=== PATIENT | male | born 1970 | race Caucasian/White ===

== ENCOUNTER 2018-09-24 08:17 | Emergency (ER) | payer MEDICAID, SELFPAY ==
[2018-09-24] VITALS (26 sets, daily range): BP systolic 126–142; BP diastolic 64–90; PULSE 115–141; RESP 14–38; TEMP 36.6; O2SAT 94–100
--- NOTE | 2018-09-24 08:31 | ED.GENADUL_ITS ---
Discharge Plan Disposition Patient Disposition: HOME Condition: Improving Discharge Details Chief Complaint: SOB Clinical Impression: COPD (chronic obstructive pulmonary disease), Tachycardia Primary Care Provider: None,None ED Provider: Gallo Shafer Home Meds and New Rx's Prescriptions: New albuterol sulfate 90 mcg/actuation aerosol powdr breath activated 2 inh IH Q4H PRN (Reason: shortness of breath or wheezing) Qty: 1 RF: 0 prednisolone sodium phosphate 30 mg tablet,disintegrating 30 mg PO DAILY Qty: 4 RF: 0 Discharge Instructions Instructions: COPD (Chronic Obstructive Pulmonary Disease) (ED) Additional Instructions: Feel free to return to the emergency department for any further needs otherwise take medication as prescribed and follow-up with primary care provider within the next 1-2 weeks. Stay well-hydrated continue to abstain from smoking for alcohol use. Referrals: Kalyn Thomas [NURSE PRACTITIONER] - 1 week (for reassessment) Medical Decision Making <Gallo Shafer NP - Last Filed: 09/24/18 22:09> Patient presenting to the emergency department for chief complaint of shortness of breath for years. Patient states that he recently quit smoking approximately 3 weeks ago. Patient patient is new to the area and just assigned a primary care provider but has not seen them yet. Patient states that he is just tired of feeling this way but that there is no acute changes. Patient does state intermittent chest pains with this but denies any current discomfort. Physical exam shows regular S1-S2 with tachycardia, diffuse rhonchi/wheezes throughout all lung mata, tachypneic but otherwise unremarkable exam. Patient does state alcohol use but is vague with details about quantity which makes me suspect potential alcohol abuse and/or withdrawal causing the tachycardia. Plan to rule out ACS with EKG and troponin but doubt this at this time given chronicity, concern for possible PE with tachycardia and report of shortness of breath but no hypoxia is noted so plan on doing d-dimer, also concern for electrolyte a bnormality or alcohol withdrawal also plan on checking EtOH level and electrolytes along with CBC. Pending results patient given DuoNeb and liter of fluids. Given chronicity of report and heavy smoking history chief concern is for COPD undiagnosed. Chest x-ray reviewed along with radiologist interpretation and shows no acute findings. Patient reassessed after DuoNeb and pending lab results and states improvement of shortness of breath and with reassessment of lung mata rhonchi have now significantly diminished and now diffuse wheezing heard throughout. Plan to give second DuoNeb to see if this improves lung function any more. Review of labs show within normal limits d-dimer, negative troponin, slightly elevated BNP, slight elevation of AST, alcohol level of 33. Otherwise nondiag nostic labs no severe electrolyte abnormalities. Suspect COPD so patient given referral for pulmonary function test. Also did discuss with patient alcohol abuse as this may be causing his tachycardia. Patient does state improvement after receiving DuoNeb. Patient given single dose of Solu-Medrol. patient given albuterol inhaler to use for home use for shortness of breath, placed on 5-day burst of steroids and placed up on care management list for a follow-up appointment preferably in the next 1-2 weeks for reassessment. Patient did have persistent tachycardia so patient given second liter of fluids. Patient states that he quit heavy drinking approximately 6-8 months ago and only drinks occasionally. I did inform patient that this may also be contributing to some of his symptoms. Tachycardia did reduce to 1 teens at rest and patient continued to state improvement of symptoms. I feel that patient is able to be safely discharged with clear instructions to return to emergency department for any further concerns otherwise to follow-up with primary care provider. After discussion of diagnosis and plan of care patient has no further needs, questions, or concerns and states clear understanding to return to the emergency department for any worsening symptoms. <Zak Gonzalez DO - Last Filed: 09/24/18 21:04> ECG Data Attestation: I personally reviewed and interpreted this ECG (s) as follows: Interpretation: EKG 8: 29 Rate 132, more QTc 498 QRS 98, sinus tachycardia, no significant ST elevation, no significant ST depression, no T wave inversions, no Q waves. HPI <Gallo Shafer NP - Last Filed: 09/24/18 22:09> General Mode of arrival: ambulatory . Date/Time Provider Initiated Documentation: 09/24/18 08:19 . Limitations to Documentation: no limitations . Information obtained by: patient and RN notes reviewed . History of Present Illness 48 year old M presents to the emergency department with the chief complaint of shortness of breath, Quality is described as other (denies pain), and is localized to the chest. Patient started experiencing this year(s) and it has been constant. No relieving factors improve symptom(s), Other factors that worsen symptoms (activity) . Patient did receive the following treatments prior to arrival, none Related Data Home Medications Medication Instructions Recorded Confirmed albuterol sulfate 2 inh IH Q4H PRN #1 each 09/24/18 prednisolone sodium phosphate 30 mg PO DAILY #4 tab 09/24/18 Previous Rx's Medication Instructions Recorded albuterol sulfate 2 inh IH Q4H PRN #1 each 09/24/18 prednisolone sodium phosphate 30 mg PO DAILY #4 tab 09/24/18 Allergies Allergy/AdvReac Type Severity Reaction Status Date / Time No Known Allergies Allergy Unverified 09/24/18 08:34 General Stated Complaint: SOB WANDA: 2 Review of Systems <Gallo Shafer NP - Last Filed: 09/24/18 22:09> Constitutional Denies chills, Denies fever(s) and Denies malaise Cardiovascular Reports as per HPI, Reports chest pain (intermittent - none now), Denies chest pain with activity, Reports diaphoresis, Denies syncope, Denies irregular heart rhythm, Denies palpitations, Reports dyspnea and Reports dyspnea on exertion Respiratory Denies cough, Denies hemoptysis, Reports dyspnea and Reports dyspnea on exertion Gastrointestinal Denies abdominal pain, Denies nausea and Denies vomiting Neurologic Denies syncope Psychiatric Denies anxiety Endocrine Denies palpitations PFSH <Gallo Shafer NP - Last Filed: 09/24/18 22:09> Social History Smoking and Tabacco status: Former Tobacco Use Exam <Gallo Shafer NP - Last Filed: 09/24/18 22:09> Const General: cooperative, no acute distress, diaphoretic and not ill appearing Nutritional Appearance: average body habitus Orientation: alert, awake and oriented x3 Limitations: mental status not altered Neck Neck: normal visual inspection, full ROM, trachea midline, supple and no anterior neck swelling Thyroid: thyroid normal Carotids: normal carotid upstroke and no bruits Chest Chest: normal inspection of the chest Resp Effort & Inspection: able to speak in complete sentences and tachypneic Auscultation: rhonchi and wheezes Cardio Jugular venous pressure: no JVD Palpation: normal PMI Rate: regular rate Rhythm: regular rhythm Heart Sounds: S1 normal, S2 normal, no click, no gallops, no murmurs and no rubs Bruits: no abdominal aortic bruits and no carotid bruits Pulses: radial pulses present bilaterally 2+ GI Inspection: normal to inspection Palpation: soft, no aortic enlargement, no pulsatile masses and nontender Auscultation: normal bowel sounds Skin General skin exam: no rashes or lesions noted Neuro General: alert, awake, oriented x3, tone normal and moves all extremities Course <Gallo Shafer NP - Last Filed: 09/24/18 22:09> Vital Signs Temperature 36.6 C 09/24/18 08:23 Pulse 141 H 09/24/18 08:23 Respiratory Rate 24 09/24/18 08:23 Blood Pressure 127/90 09/24/18 08:23 Pulse Oximetry 96 09/24/18 08:23 Temperature 36.6 C 09/24/18 08:23 Temperature Source Temporal Artery Scan 09/24/18 08:23 Pulse 141 H 09/24/18 08:23 Respiratory Rate 24 09/24/18 08:23 Blood Pressure 127/90 09/24/18 08:23 Pulse Oximetry 96 09/24/18 08:23 Oxygen Delivery Method Room Air 09/24/18 08:23 Oxygen Flow Rate 0 09/24/18 08:23 Pain Level 0 09/24/18 08:23
--- NOTE | 2018-09-24 08:37 | DI.RAD_ITS ---
SYMPTOM/DIAGNOSIS: SOB PA AND LATERAL CHEST: The heart is normal in size. The lungs are clear. The mediastinal structures and pleura appear intact. CONCLUSION: Normal chest.
[2018-09-24 08:49] LABS: Abs Immature Grans 0.05 k/cumm (0.0-0.09); Absolute Basophil Count 0.06 k/cumm (0.0-0.2); Absolute Eosinophil Count 0.12 k/cumm (0.0-0.7); Absolute Lymphocyte Count 2.62 k/cumm (1.2-3.4); Absolute Neutrophil Count 5.77 k/cumm (1.2-6.7); Basophils % 0.6; Eosinophils % 1.2; HCT 43.1 % (40.0-50.0); Immature Grans % 0.5; Lymphocytes % 27.2; Mean Corp. HGB Concentration 34.8 g/dL (32.0-36.0); Mean Corpuscular Hemoglobin 32.7 pg (27.0-33.0); Mean Corpuscular Volume 93.9 fL (80-95); Mean Platelet Volume 10.1 fL (8.0-11.0); Monocytes % 10.4; Neutrophils % 60.1; Platelet Count 317 x1000/uL (130-400); RBC 4.59 m/cumm (4.50-6.00); RBC Distribution Width 12.7 % (11.8-14.1); White Blood Cell Count 9.62 k/cumm (4.4-10.8)
[2018-09-24] MEDS: Normal Saline 1,000 ML 1000 ML IV ×2 (08:57→10:12)
[2018-09-24] MEDS: Albuterol/Ipratropium 3 ML UPD VIAL UPD ×2 (08:57→09:23)
[2018-09-24] MEDS: Normal Saline Flush 10 ML SYR IVP ×2 (09:11→09:44)
[2018-09-24 09:12] LABS: ETHANOL BLOOD 33.3 mg/dL (<3); Magnesium 2.2 mg/dL (1.8-2.4); NT-proBNP 348 pg/mL
[2018-09-24 09:18] LABS: ALT 44 U/L (12-78); AST 38 U/L (15-37); Albumin 3.2 g/dL (3.4-5.0); Alkaline Phosphatase 48 U/L (46-116); Anion Gap 9.3 mmol/L (3-11); BUN 11 mg/dL (7-18); Bilirubin, Total 0.3 mg/dL (0.2-1.0); CO2 25.7 mmol/L (21.0-32.0); CREATININE 0.83 mg/dL (0.70-1.30); Calcium 8.4 mg/dL (8.5-10.1); Chloride 102 mmol/L (98-107); Glucose 138 mg/dL (70-100); Potassium 3.5 mmol/L (3.5-5.1); Sodium 137 mmol/L (136-145); Total Protein 7.5 g/dL (6.4-8.2)
[2018-09-24 09:19] LABS: Troponin I < 0.02 ng/mL (0.00-0.06)
[2018-09-24 09:23] LABS: D-Dimer 200 ng/mlFEU (<500); Prothrombin Time 9.8 sec (9.3-11.0)
[2018-09-24] MEDS: methylPREDNISolone SUCC 125 MG VIAL IVP (09:42)
--- NOTE | 2018-09-24 10:50 | PDOC.ERCMPRO ---
Care Management Progress Note 09/24-Iftikhar HERBERT requested assistance with a PCP (William) f/u in 1-2 weeks for COPD Management. Iftikhar has already sent the referral for PFT's. Referral faxed to [facility] this am.
--- NOTE | 2018-09-24 10:53 | CMPROGNOTE_ITS ---
Care Management Progress Note 09/24-Iftikhar HERBERT requested assistance with a PCP (William) f/u in 1-2 weeks for COPD Management. Iftikhar has already sent the referral for PFT's. Referral faxed to [facility] this am.
== END 2018-09-24 11:02 | disposition home or self-care (01) ==
PROVIDERS: Emergency Provider Nurse Practitioner Family
DX: J44.1 Chronic obstructive pulmonary disease with (acute) exacerbation (principal); R00.0 Tachycardia, unspecified; Z87.891 Personal history of nicotine dependence
CPT/HCPCS: 36415; 80053; 93005; 94640; 96361; 96374; 99285; 71046; 80320; 83735; 83880; 84484; 85025; 85379; 85610; 85730; 93010; J2930; J7620

== ENCOUNTER 2018-10-12 01:15 | Outpatient (CLI) | payer MEDICAID, SELFPAY ==
[2018-10-12] MEDS: Inhaler, Assist Device 1 EACH MC (10:39)
[2018-10-12] MEDS: Albuterol HFA 18 GM 200 PUFF INH IH (10:39)
--- NOTE | 2018-10-13 10:00 | PFT_ITS ---
DATE OF SERVICE: 10/12/18 REQUESTING PROVIDER: Dr. Lionel Ruggiero Spirometry shows severe obstructive airways disease with significant bronchodilator response. Lung volumes show no evidence of restriction. There is moderate hyperinflation and air trapping. Diffusion capacity mildly reduced, which is normal when corrected to alveolar volume. Airways resistance normal. IMPRESSION: Severe obstructive airways disease with significant bronchodilator response. This is associated with moderate hyperinflation and air trapping and mild diffusion defect. Clinical correlation recommended.
== END 2018-10-12 01:35 ==
PROVIDERS: PCP Family Medicine; Visit Provider Nurse Practitioner Family
DX: R06.00 Dyspnea, unspecified (principal)
CPT/HCPCS: 94060; 94150; 94726; 94729

== ENCOUNTER 2018-12-24 14:22 | Outpatient (RCR) | payer MEDICAID, SELFPAY | END 2019-01-14 23:59 | disposition home or self-care (01) | LOC: PRC 14:22 | PROVIDERS: PCP Family Medicine; Visit Provider Family Medicine | DX: J44.9 Chronic obstructive pulmonary disease, unspecified (principal); Z51.89 Encounter for other specified aftercare | CPT/HCPCS: G0424 ==

== ENCOUNTER 2019-01-16 05:03 | Outpatient (RCR) | payer MEDICAID, SELFPAY | END 2019-02-13 23:59 | disposition home or self-care (01) | LOC: PRC 05:03 | PROVIDERS: PCP Family Medicine; Visit Provider Family Medicine | DX: J44.9 Chronic obstructive pulmonary disease, unspecified (principal); Z51.89 Encounter for other specified aftercare | CPT/HCPCS: G0424 ==

== ENCOUNTER 2019-02-10 11:56 | Outpatient (REF) | payer MEDICAID, SELFPAY ==
[2019-02-10 13:22] LABS: Abs Immature Grans 0.02 k/cumm (0.0-0.09); Absolute Basophil Count 0.08 k/cumm (0.0-0.2); Absolute Eosinophil Count 0.21 k/cumm (0.0-0.7); Absolute Lymphocyte Count 2.09 k/cumm (1.2-3.4); Absolute Monocyte Count 1.04 k/cumm (0.11-0.7); Absolute Neutrophil Count 4.84 k/cumm (1.2-6.7); Eosinophils % 2.5; HCT 43.8 % (40.0-50.0); HGB 14.9 g/dL (13.5-17.5); Immature Grans % 0.2; Lymphocytes % 25.2; Mean Corpuscular Hemoglobin 32.8 pg (27.0-33.0); Mean Corpuscular Volume 96.5 fL (80-95); Mean Platelet Volume 10.9 fL (8.0-11.0); Monocytes % 12.6; Neutrophils % 58.5; Platelet Count 283 x1000/uL (130-400); RBC 4.54 m/cumm (4.50-6.00); RBC Distribution Width 14.5 % (11.8-14.1); White Blood Cell Count 8.28 k/cumm (4.4-10.8)
[2019-02-10 14:08] LABS: ALT 44 U/L (12-78); AST 45 U/L (15-37); Albumin 3.6 g/dL (3.4-5.0); Alkaline Phosphatase 43 U/L (46-116); Anion Gap 13.8 mmol/L (3-11); BUN 9 mg/dL (7-18); Bilirubin, Total 0.3 mg/dL (0.2-1.0); CO2 25.2 mmol/L (21.0-32.0); CREATININE 0.63 mg/dL (0.70-1.30); Calcium 8.7 mg/dL (8.5-10.1); Chloride 102 mmol/L (98-107); Glucose 100 mg/dL (70-100); Potassium 4.1 mmol/L (3.5-5.1); Sodium 141 mmol/L (136-145); Total Protein 7.1 g/dL (6.4-8.2)
== END 2019-02-10 12:16 ==
LOC: NCHCN 11:56
PROVIDERS: PCP Family Medicine; Visit Provider Nurse Practitioner Family
DX: R06.00 Dyspnea, unspecified (principal); R53.83 Other fatigue; R14.0 Abdominal distension (gaseous); R10.811 Right upper quadrant abdominal tenderness
CPT/HCPCS: 80053; 85025

== ENCOUNTER 2019-02-14 09:51 | Outpatient (RCR) | payer MEDICAID, SELFPAY | END 2019-03-16 23:59 | disposition home or self-care (01) | LOC: PRC 09:51 | PROVIDERS: PCP Nurse Practitioner Family; Visit Provider Family Medicine | DX: J44.9 Chronic obstructive pulmonary disease, unspecified (principal); Z51.89 Encounter for other specified aftercare | CPT/HCPCS: G0424 ==

== ENCOUNTER 2019-02-25 01:08 | Outpatient (CLI) | payer MEDICAID, SELFPAY ==
--- NOTE | 2019-02-25 07:32 | DI.US_ITS ---
SYMPTOM/DIAGNOSIS: RUQ ABD TENDERNESS, R10.811, ABD BLOATING, R14.0 ABDOMEN ULTRASOUND: Routine examination was performed. The aorta is of normal caliber. The inferior vena cava is unremarkable. The liver measures 18.5 cm. in length. There is diffuse increased echogenicity of the liver consistent with fatty infiltration. No hepatic mass is seen. The gallbladder is negative. No biliary ductal dilatation is seen. The pancreatic evaluation is limited due to overlying bowel. The spleen and kidneys are unremarkable. IMPRESSION: Hepatomegaly and hepatic steatosis.
== END 2019-02-25 01:28 ==
PROVIDERS: PCP Family Medicine; Visit Provider Nurse Practitioner Family
DX: R10.811 Right upper quadrant abdominal tenderness (principal); R14.0 Abdominal distension (gaseous); R16.0 Hepatomegaly, not elsewhere classified; K76.0 Fatty (change of) liver, not elsewhere classified; J44.9 Chronic obstructive pulmonary disease, unspecified
CPT/HCPCS: 76700; G0424

== ENCOUNTER 2019-05-02 15:20 | Emergency (ER) | payer MEDICAID, SELFPAY ==
[2019-05-02] VITALS (27 sets, daily range): BP systolic 107–129; BP diastolic 68–96; PULSE 84–120; RESP 12–29; TEMP 36.9–37; O2SAT 83–100
--- NOTE | 2019-05-02 15:35 | DI.RAD_ITS ---
EXAM: XR CHEST 2V PA LATERAL CLINICAL HISTORY: COUGH,SPUTUM,COPD TECHNIQUE: COMPARISON: No exams were available for comparison FINDINGS: Heart is not enlarged. Lungs are predominantly clear with question of a retrocardiac infiltrate on t he left. No pleural effusion seen. Mediastinal contours are intact. IMPRESSION: Question left lower lobe patchy infiltrate, follow up radiographs suggested following treatment.
--- NOTE | 2019-05-02 15:36 | ED.GENADUL_ITS ---
Discharge Plan Disposition Patient Disposition: HOME Condition: Improving Discharge Details Chief Complaint: SOB Clinical Impression: Left lower lobe pneumonia Primary Care Provider: Alondra Lomax ED Provider: Edgard Melendrez Home Meds and New Rx's Prescriptions: New prednisone 20 mg tablet 60 mg PO DAILY 5 Days Qty: 15 RF: 0 cefdinir 300 mg capsule 300 mg PO Q12H 10 Days Qty: 20 RF: 0 Continued cetirizine 10 mg Tablet 10 mg PO DAILY RF: 0 Nicotrol 10 mg Cartridge 1 inh INHALATION 4-8XD PRNRF: 0 montelukast 10 mg Tablet 10 mg PO DAILY RF: 0 fluticasone propionate [Flonase Allergy Relief] 50 mcg/actuation [place], Suspension 1 spray INTRANASAL BID RF: 0 sertraline 50 mg Tablet 50 mg PO DAILY RF: 0 Spiriva with HandiHaler 18 mcg Capsule, W/Inhalation Device 1 cap INHALATION DAILY RF: 0 Dulera 200-5 mcg/actuation Hfa Aerosol Inhaler 2 puff INHALATION BID RF: 0 albuterol sulfate 90 mcg/actuation aerosol powdr breath activated 2 inh IH Q4H PRN (Reason: shortness of breath or wheezing) Qty: 1 RF: 0 Discharge Instructions Instructions: Pneumonia (ED) Additional Instructions: Please follow-up with Alondra Granado for recheck if not improving in 5 to 7 days time. Continue efforts to decrease tobacco use. Take antibiotics and prednisone as prescribed. Home to rest this evening. Small, frequent sips of fluids to maintain hydration. Return for any acute concern. Medical Decision Making 48-year-old male smoker with COPD presents with worsening cough, congestion, production of sputum over days time. His triage vital signs are normal with normal oxygenation, well in the room he demonstrates a resting hypoxia between 90-100. On exam he has diminished breath sounds bilaterally with end expiratory wheeze. IV placed, was given a liter fluid, Solu-Medrol, screening laboratories and EKG obtained. Is given DuoNeb updraft and referred for chest x-ray. Patient has a small left lower lobe pneumonia. Labs w blood cell count is 8, hematocrit 43, platelets normal. Chemistries reassuring. Note of elevated AST and ALT at 78/74. Troponin negative. Patient able to ambulate for 6 minutes with oxygen going from 95-90 1 to 92%. No dyspnea at rest. States he is feeling improved following interventions. Discussed offer of admission which she declines. States he does not have issue in obtaining outpatient medications. Place him on a burst of prednisone, oral antibiotics, he is stable and appropriate for trial of outpatient therapy. ECG Data Attestation: I personally reviewed and interpreted this ECG (s) as follows: Interpretation: Sinus tachycardia, rate 110, the QRS is narrow, there is no ST segment elevation HPI General Mode of arrival: ambulatory . Date/Time Provider Initiated Documentation: 05/02/19 15:24 . Limitations to Documentation: no limitations . Information obtained by: patient . History of Present Illness 48 year old M presents to the emergency department with the chief complaint of Worsening shortness of breath and production of sputum with cough over days, described as moderate and similar to prior episodes, Quality is described as constant, and is localized to the chest. Patient reports no radiation. Patient started experiencing this day(s) and it has been intermittent. No relieving factors improve symptom(s), Other factors that worsen symptoms (Smoking) . Patient notes cough and shortness of breath; denies chest pain, nausea/vomiting and rash. Patient did receive the following treatments prior to arrival, other (States he is taking his prescribed inhalers) Related Data Home Medications Medication Instructions Recorded Confirmed albuterol sulfate 2 inh IH Q4H PRN #1 each 09/24/18 05/02/19 Dulera 2 puff INHALATION BID 05/02/19 05/02/19 Nicotrol 1 inh INHALATION 4-8XD PRN 05/02/19 05/02/19 Spiriva with HandiHaler 1 cap INHALATION DAILY 05/02/19 05/02/19 cefdinir 300 mg PO Q12H 10 Days #20 cap 05/02/19 cetirizine 10 mg PO DAILY 05/02/19 05/02/19 fluticasone propionate [Flonase 1 spray INTRANASAL BID 05/02/19 05/02/19 Allergy Relief] montelukast 10 mg PO DAILY 05/02/19 05/02/19 prednisone 60 mg PO DAILY 5 Days #15 tab 05/02/19 sertraline 50 mg PO DAILY 05/02/19 05/02/19 Previous Rx's Medication Instructions Recorded albuterol sulfate 2 inh IH Q4H PRN #1 each 09/24/18 cefdinir 300 mg PO Q12H 10 Days #20 cap 05/02/19 prednisone 60 mg PO DAILY 5 Days #15 tab 05/02/19 Allergies Allergy/AdvReac Type Severity Reaction Status Date / Time No Known Allergies Allergy Unverified 05/02/19 15:58 General Stated Complaint: SOB WANDA: 2 Review of Systems Review of Systems Narrative: No recent illness. Continues to smoke. 6 systems reviewed and otherwise negative currently not employed. FORMERLY [facility], [facility] Social History Smoking/Tobacco Use Status: Current every day Tobacco Type: cigarettes Alcohol Intake: current Alcohol Intake frequency: a few times a week Alcohol type: hard liquor Drug use: Occasionally Substance use type: marijuana Do you feel safe at home: Yes Do you feel safe in your relationship?: Yes Exam Narrative Exam Narrative: GEN: awake, alert, oriented 3. Pleasant, well groomed, interactive. HEAD: Normocephalic, atraumatic ENT: Mucous membranes dry, oropharynx unremarkable, External ear exam unremarkable EYES: PERRL, EOMI NECK: Full ROM, no CHRISTI, no menigismus CHEST/RESP: Nontender, diminished bilaterally with end expiratory wheeze. CARDIOVASCULAR: RRR with pulse 90-100 during exam, no murmur, rub vickey. 2+ Rad pulse bilateral ABDOMEN: Soft, nontender, no mass. +Bowel sounds EXT: Full ROM, no edema, no rash, tobacco stains Neuro: Grossly normal neurologic exam, conversant, interactive. Psych: Speech fluent, thoughts congruent, affect normal Course Vital Signs Vital signs: Vital Signs Temperature 36.9 C 05/02/19 15:24 Pulse 84 05/02/19 15:24 Respiratory Rate 18 05/02/19 15:24 Blood Pressure 107/68 05/02/19 15:24 Pulse Oximetry 97 05/02/19 15:24 Temperature 36.9 C 05/02/19 15:24 Temperature Source Skin 05/02/19 15:24 Pulse 84 05/02/19 15:24 Respiratory Rate 18 05/02/19 15:24 Blood Pressure 107/68 05/02/19 15:24 Blood Pressure Position Sitting 05/02/19 15:24 Pulse Oximetry 97 05/02/19 15:24 Oxygen Delivery Method Room Air 05/02/19 15:24 Oxygen Flow Rate 0 05/02/19 15:24 Pain Level 10 05/02/19 15:24
[2019-05-02] MEDS: methylPREDNISolone SUCC 125 MG VIAL IVP (15:49)
[2019-05-02] MEDS: Albuterol/Ipratropium 3 ML UPD VIAL UPD ×2 (15:49→16:24)
[2019-05-02] MEDS: Normal Saline 1,000 ML 1000 ML IV (15:49)
[2019-05-02 16:11] LABS: Abs Immature Grans 0.04 k/cumm (0.0-0.09); Absolute Basophil Count 0.09 k/cumm (0.0-0.2); Absolute Eosinophil Count 0.11 k/cumm (0.0-0.7); Absolute Lymphocyte Count 1.99 k/cumm (1.2-3.4); Absolute Monocyte Count 0.92 k/cumm (0.11-0.7); Absolute Neutrophil Count 4.99 k/cumm (1.2-6.7); Basophils % 1.1; Eosinophils % 1.4; HCT 43.3 % (40.0-50.0); Immature Grans % 0.5; Lymphocytes % 24.4; Mean Corp. HGB Concentration 34.6 g/dL (32.0-36.0); Mean Corpuscular Volume 95.4 fL (80-95); Mean Platelet Volume 10.7 fL (8.0-11.0); Monocytes % 11.3; Neutrophils % 61.3; Platelet Count 211 x1000/uL (130-400); RBC 4.54 m/cumm (4.50-6.00); RBC Distribution Width 14.1 % (11.8-14.1); White Blood Cell Count 8.14 k/cumm (4.4-10.8)
[2019-05-02 16:21] LABS: ALT 74 U/L (16-63); AST 78 U/L (15-37); Albumin 3.9 g/dL (3.4-5.0); Alkaline Phosphatase 54 U/L (46-116); Anion Gap 10.6 mmol/L (3-11); BUN 8 mg/dL (7-18); Bilirubin, Total 0.3 mg/dL (0.2-1.0); CO2 28.4 mmol/L (21.0-32.0); CREATININE 0.66 mg/dL (0.70-1.30); Calcium 8.5 mg/dL (8.5-10.1); Chloride 102 mmol/L (98-107); Glucose 99 mg/dL (70-100); Magnesium 2.3 mg/dL (1.8-2.4); Potassium 3.6 mmol/L (3.5-5.1); Sodium 141 mmol/L (136-145); Total Protein 7.9 g/dL (6.4-8.2)
[2019-05-02 16:23] LABS: Troponin I < 0.05 ng/mL (0.00-0.06)
--- NOTE | 2019-05-02 16:30 | DI.VRAD_ITS ---
EXAM: XR Chest, 2 Views EXAM DATE/TIME: 05/02/2019 3:36 PM CLINICAL HISTORY: 48 years old, male; Cough and shortness of breath and other: Sputum, copd TECHNIQUE: Imaging protocol: XR of the chest Views: 2 views. COMPARISON: CR XR CHEST 2V PA LATERAL 09/24/2018 8:47 AM FINDINGS: Lungs: Minimal patchy density in the left lung base, consistent with small pneumonia in the proper clinical setting. The right lung is clear. Pleural space: Unremarkable. No pleural effusion. No pneumothorax. Heart/Mediastinum: The cardiomediastinal silhouette and pulmonary vasculature are within normal limits. Bones/joints: Unremarkable. IMPRESSION: Small left lower lobe pneumonia. Dictated and Authenticated by: Rafael Adams MD. Ordering:JORDON Rene MD
== END 2019-05-02 17:55 | disposition home or self-care (01) ==
PROVIDERS: Emergency Provider Emergency Medicine; PCP Nurse Practitioner Family
DX: J44.0 Chronic obstructive pulmonary disease with (acute) lower respiratory infection (principal); J18.9 Pneumonia, unspecified organism; F17.210 Nicotine dependence, cigarettes, uncomplicated
CPT/HCPCS: 36415; 80053; 93005; 94618; 94640; 96361; 96365; 96375; 99285; 71046; 83735; 84484; 85025; 93010; 99284; J0696; J2930; J7620

== ENCOUNTER 2019-06-02 22:41 | Emergency (ER) | payer MEDICAID, SELFPAY ==
[2019-06-02 22:46] VITALS: BP 112/85; PULSE 128; RESP 22; TEMP 36.3; O2SAT 94
[2019-06-02 22:50] VITALS: RESP 22
--- NOTE | 2019-06-02 23:15 | ED.GENADUL_ITS ---
Discharge Plan Disposition Patient Disposition: AGAINST MEDICAL ADVICE Condition: Poor Discharge Details Chief Complaint: SOB Clinical Impression: Acute exacerbation of chronic obstructive pulmonary disease (COPD) Primary Care Provider: Alondra Lomax ED Provider: Miguelangel Walker Shubert Medisaac and New Rx's Prescriptions: New nicotine (polacrilex) [Nicorelief] 4 mg gum 4 mg BC Q1H PRN (Reason: nicotine cravings) Qty: 50 RF: 0 levofloxacin 750 mg tablet 750 mg PO DAILY Qty: 6 RF: 0 prednisone 20 mg tablet 40 mg PO DAILY Qty: 10 RF: 0 albuterol sulfate 2.5 mg /3 mL (0.083 %) solution for nebulization 2.5 mg IH Q4H PRN (Reason: shortness of breath or wheezing) Qty: 75 RF: 0 Continued cetirizine 10 mg Tablet 10 mg PO DAILY RF: 0 montelukast 10 mg Tablet 10 mg PO DAILY RF: 0 fluticasone propionate [Flonase Allergy Relief] 50 mcg/actuation [place],Suspension 1 spray INTRANASAL BID RF: 0 sertraline 50 mg Tablet 50 mg PO DAILY RF: 0 Spiriva with HandiHaler 18 mcg Capsule, W/Inhalation Device 1 cap INHALATION DAILY RF: 0 Dulera 200-5 mcg/actuation Hfa Aerosol Inhaler 2 puff INHALATION BID RF: 0 albuterol sulfate 90 mcg/actuation aerosol powdr breath activated 2 inh IH Q4H PRN (Reason: shortness of breath or wheezing) Qty: 1 RF: 0 Discontinued Nicotrol 10 mg Cartridge 1 inh INHALATION 4-8XD PRNRF: 0 Discharge Instructions Instructions: How to Stop Smoking (ED), COPD (Chronic Obstructive Pulmonary Disease) (ED) Additional Instructions: We have recommended admission for management of your COPD exacerbation. You have elected to sign out AGAINST MEDICAL ADVICE despite the risk of worsening respiratory status and . Please contact primary care tomorrow for follow- up. Please fill prescriptions and take medication as directed. Please try to stop smoking as well as drinking. Return to ED for fever, increasing shortness of breath, chest pain, other concerns or if you change your mind and want to be reevaluated/admitted. Referrals: Lionel Ruggiero, [employer] [NURSE PRACTITIONER] - Medical Decision Making Patient presenting with recurrent cough, shortness of breath, wheezing. Has history of COPD and was treated for pneumonia last month. Denies chest pain or pressure. Denies leg pain leg swelling. Continues to smoke cigarettes and drink alcohol. Is tachycardic with diminished breath sounds and wheezing. Will place IV and check labs. Fluid resuscitate, updrafts, steroids. Chest x-ray ordered. Patient laboratory studies show a normal white count. Potassium a little low at 3.1. Replaced orally. Lactic acid a little bit up at 2.5. Liver function is okay, some elevation of AST and ALT but he is a chronic drinker. Alcohol level is 200 and clinically he appears sober. Chest x-ray with no definite pneumonia. On return from x-ray he is reevaluated. He had received a liter of fluid, DuoNeb, albuterol. His heart rate was still elevated but his lungs had better air exchange continued with wheeze. Discussed admission which she does not want. He was given second liter of fluid, Toradol for mild headache, tumor albuterols as well as oral Levaquin. On reevaluation states that he feels better but his heart rate remains elevated. Some of that may be all the albuterol. He also reports that he always has a fast heart rate. His lung exam continues to sound better. Continues to refuse admission. States he will stay at his brother's house which is just down the road and return if any problems. Will contact his primary care for follow-up. He reports that his brother has a nebulizer machine that he could use but we would need to provide him with the tubing in the medicine. We will continue steroids and antibiotics. We will have him follow-up KEVIN with PCP. We did discuss risks and benefits to admission. He understands the risk of worsening respiratory status and possible . Continues to ask for discharge. Understands he is signing out AGAINST MEDICAL ADVICE. Medical Records Medical records reviewed: Yes I reviewed the patient's medical records. Lab Data Lab results reviewed: Yes I reviewed the patient's lab results. ECG Data Attestation: I personally reviewed and interpreted this ECG (s) as follows: Prior ECG tracings: available for review Interpretation: Sinus tachycardia at 132. Normal interval and axis. Nonspecific rate related ST changes and poor R wave. Not significantly different than previous including rate. HPI General Mode of arrival: ambulatory . Date/Time Provider Initiated Documentation: 06/02/19 23:02 . Limitations to Documentation: no limitations . Information obtained by: patient, RN notes reviewed and old records reviewed . HPI Narrative: Patient presents to ED with increasing shortness of breath, cough, not feeling well. Vanduser hot and cold last night but did not take temperature. He continues to smoke cigarettes and drink alcohol. He lives in a tent. He has history of COPD. He was seen here last month and diagnosed with pneumonia. States he completed the antibiotics and steroids he was given. He did feel better for a little while but the last few days he has been ill again. He denies having any type of chest pain except when he coughs heavily. He has nausea and dry heaves but no actual vomiting. Denies chest pain or pressure. Has no leg pain or leg swelling. Is having more difficulty breathing and came in tonight for kari luation. Related Data Home Medications Medication Instructions Recorded Confirmed albuterol sulfate 2 inh IH Q4H PRN #1 each 09/24/18 06/02/19 Dulera 2 puff INHALATION BID 05/02/19 06/02/19 Spiriva with HandiHaler 1 cap INHALATION DAILY 05/02/19 06/02/19 cetirizine 10 mg PO DAILY 05/02/19 06/02/19 fluticasone propionate [Flonase 1 spray INTRANASAL BID 05/02/19 06/02/19 Allergy Relief] montelukast 10 mg PO DAILY 05/02/19 06/02/19 sertraline 50 mg PO DAILY 05/02/19 06/02/19 albuterol sulfate 2.5 mg IH Q4H PRN #75 ml 06/03/19 levofloxacin 750 mg PO DAILY #6 tab 06/03/19 nicotine (polacrilex) [Nicorelief] 4 mg BC Q1H PRN #50 each 06/03/19 prednisone 40 mg PO DAILY #10 tab 06/03/19 Previous Rx's Medication Instructions Recorded albuterol sulfate 2 inh IH Q4H PRN #1 each 09/24/18 albuterol sulfate 2.5 mg IH Q4H PRN #75 ml 06/03/19 levofloxacin 750 mg PO DAILY #6 tab 06/03/19 nicotine (polacrilex) [Nicorelief] 4 mg BC Q1H PRN #50 each 06/03/19 prednisone 40 mg PO DAILY #10 tab 06/03/19 Allergies Allergy/AdvReac Type Severity Reaction Status Date / Time No Known Allergies Allergy Unverified 06/02/19 22:55 General Stated Complaint: SOB WANDA: 3 Review of Systems Review of Systems Narrative: 05/30 Review of Systems completed and is negative except as stated above in HPI (Systems reviewed: Const, Eyes, ENT, Resp, CV, GI, , MSK, Skin, Neuro) PFSH Medical History COPD (chronic obstructive pulmonary disease) (Chronic) Surgical History S/P arthroscopic knee surgery (Acute) Social History Smoking/Tobacco Use Status: Current every day Tobacco Type: cigarettes Alcohol Intake: current Alcohol Intake frequency: 3 or more drinks per day Alcohol type: hard liquor Drug use: Never Substance use type: former substance user Do you feel safe at home: Yes Do you feel safe in your relationship?: Yes Exam Narrative Exam Narrative: Vitals: Afebrile. Tachycardic to 128. Normal blood pressure. Room air saturations low 90s. Const: WDWN male in NAD. HEENT: NC/AT. Normal facial exam. Eyes: Normal conjunctiva and sclera. Neck: Supple. Trachea midline. Lungs: Normal respiratory effort. Lungs are decreased with wheezing throughout. Cor: RRR distance heart sounds. Good radial pulses. GI: Soft. NT/ND. No guarding or rebound. Neuro: A+O x 3. CN grossly in tact. Good strength and no focal deficit. Ext: No C/C/E. No calf tenderness. Skin: Warm and dry without rash. Course Vital Signs Vital signs: Vital Signs Temperature 97.3 F L 06/02/19 22:46 Pulse 128 H 06/02/19 22:46 Respiratory Rate 22 06/02/19 22:46 Blood Pressure 112/85 06/02/19 22:46 Pulse Oximetry 94 L 06/02/19 22:46 Temperature 97.3 F L 06/02/19 22:46 Temperature Source Skin 06/02/19 22:46 Pulse 128 H 06/02/19 22:46 Respiratory Rate 22 06/02/19 22:50 Respiratory Effort 06/02/19 22:50 Respiratory Depth Shallow 06/02/19 22:50 Respiratory Pattern Tachypnea 06/02/19 22:50 Blood Pressure 112/85 06/02/19 22:46 Blood Pressure Position Sitting 06/02/19 22:46 Pulse Oximetry 94 L 06/02/19 22:46 Oxygen Delivery Method Room Air 06/02/19 22:46 Oxygen Flow Rate 0 06/02/19 22:46 Pain Level 8 06/02/19 22:46 Comment 06/02/19 22:46
[2019-06-02] MEDS: Lactated Ringers 1,000 ML 1000 ML IV (23:19)
[2019-06-02 23:24] LABS: Abs Immature Grans 0.04 k/cumm (0.0-0.09); Absolute Basophil Count 0.08 k/cumm (0.0-0.2); Absolute Eosinophil Count 0.19 k/cumm (0.0-0.7); Absolute Lymphocyte Count 2.32 k/cumm (1.2-3.4); Absolute Monocyte Count 1.42 k/cumm (0.11-0.7); Absolute Neutrophil Count 3.78 k/cumm (1.2-6.7); Eosinophils % 2.4; HCT 41.1 % (40.0-50.0); HGB 14.5 g/dL (13.5-17.5); Immature Grans % 0.5; Lactate 2.5 mmol/L (0.6-1.4); Lymphocytes % 29.6; Mean Corp. HGB Concentration 35.3 g/dL (32.0-36.0); Mean Corpuscular Hemoglobin 33.7 pg (27.0-33.0); Mean Corpuscular Volume 95.6 fL (80-95); Mean Platelet Volume 10.4 fL (8.0-11.0); Monocytes % 18.1; Neutrophils % 48.4; Platelet Count 276 x1000/uL (130-400); RBC Distribution Width 14.1 % (11.8-14.1); White Blood Cell Count 7.83 k/cumm (4.4-10.8)
--- NOTE | 2019-06-02 23:26 | DI.RAD_ITS ---
EXAM: XR CHEST 2V PA LATERAL INDICATION: cough/SOB,PNEUMONIA COMPARISON: XR CHEST 2V PA LATERAL from 09/24/2018 XR CHEST 2V PA LATERAL from 05/02/2019 TECHNIQUE: 2D digital imaging was performed. FINDINGS: The heart size is normal. There has been no change in the density seen on the lateral view posteriorl y. The findings could represent overlying vessels and degenerative changes in the spine. No effusion or new abnormality is seen. IMPRESSION: No change in posterior basilar density. A CT could be considered for further evaluation.
[2019-06-02 23:31] VITALS: PULSE 112; RESP 22; RESP 8; O2SAT 94
[2019-06-02] MEDS: Albuterol/Ipratropium 3 ML UPD VIAL UPD (23:31)
[2019-06-02 23:32] VITALS: PULSE 112; RESP 22; RESP 8; O2SAT 94
[2019-06-02] MEDS: methylPREDNISolone SUCC 125 MG VIAL IVP (23:32)
[2019-06-02] MEDS: Albuterol 2.5 MG/3 ML INH SOLN VIAL UPD (23:32)
[2019-06-02 23:44] LABS: ALT 80 U/L (16-63); AST 100 U/L (15-37); Albumin 3.1 g/dL (3.4-5.0); Alkaline Phosphatase 58 U/L (46-116); Anion Gap 11.1 mmol/L (3-11); BUN 4 mg/dL (7-18); Bilirubin, Total 0.2 mg/dL (0.2-1.0); CO2 27.9 mmol/L (21.0-32.0); CREATININE 0.74 mg/dL (0.70-1.30); Calcium 8.4 mg/dL (8.5-10.1); Chloride 101 mmol/L (98-107); ETHANOL BLOOD 202.9 mg/dL (<3); Glucose 92 mg/dL (70-100); Magnesium 1.8 mg/dL (1.8-2.4); Potassium 3.1 mmol/L (3.5-5.1); Sodium 140 mmol/L (136-145); Total Protein 7.5 g/dL (6.4-8.2)
[2019-06-02 23:46] LABS: Troponin I < 0.05 ng/mL (0.00-0.06)
--- NOTE | 2019-06-03 00:08 | DI.VRAD_ITS ---
PROCEDURE INFORMATION: Exam: XR Chest, 2 Views Exam date and time: 06/02/2019 11:27 PM Clinical history: 48 years old, male; Cough and shortness of breath; Patient HX: Pneumonia xfew days, taking antibiotics TECHNIQUE: Imaging protocol: XR of the chest Views: 2 views. COMPARISON: CR XR CHEST 2V PA LATERAL 05/02/2019 4:14 PM FINDINGS: Lungs: Density overlying posteroinferior thorax on lateral view is unchanged. Pleural space: Unremarkable. No pleural effusion. No pneumothorax. Heart/Mediastinum: Unremarkable. No cardiomegaly. Bones/joints: Unremarkable. IMPRESSION: No change in density overlying posteroinferior thorax on lateral view. Appearance is favored to be due to superimposition of normal structures. Small lower lobe pneumonia cannot be excluded. Dictated and Authenticated by: Jose A Oliveira MD. Ordering:NAHID Means MD
[2019-06-03] MEDS: Potassium Chloride 20 MEQ TABCR 40 MEQ PO (00:18)
[2019-06-03 00:42] VITALS: PULSE 123; RESP 20; RESP 22; RESP 8; O2SAT 95
[2019-06-03] MEDS: Albuterol 2.5 MG/3 ML INH SOLN VIAL UPD ×2 (00:42)
[2019-06-03] MEDS: Ketorolac 15 MG/ML VIAL IVP (00:43)
[2019-06-03] MEDS: Lactated Ringers 1,000 ML 1000 ML IV (00:44)
[2019-06-03 00:45] VITALS: BP 113/65; PULSE 123; RESP 22; TEMP 36.6; O2SAT 95
[2019-06-03] MEDS: levoFLOXacin 500 MG, levoFLOXacin 250 MG 750 MG PO (00:49)
[2019-06-03 01:43] VITALS: BP 113/65; PULSE 123; RESP 22; TEMP 36.6; O2SAT 95
== END 2019-06-03 01:45 | disposition left against medical advice (07) ==
PROVIDERS: Emergency Provider Emergency Medicine; PCP Nurse Practitioner Family
DX: J44.1 Chronic obstructive pulmonary disease with (acute) exacerbation (principal); R00.0 Tachycardia, unspecified; F17.210 Nicotine dependence, cigarettes, uncomplicated
CPT/HCPCS: 36415; 80053; 93005; 94640; 96361; 96374; 96375; 99284; 71046; 80320; 83605; 83735; 84484; 85025; 93010; J1885; J2930; J7613; J7620

== ENCOUNTER 2019-07-31 19:26 | Emergency (ER) | payer MEDICAID, SELFPAY ==
[2019-07-31 19:30] VITALS: BP 147/104; PULSE 115; RESP 28; TEMP 36.8; O2SAT 97
--- NOTE | 2019-07-31 19:34 | ED.GENADUL_ITS ---
Discharge Plan Disposition Patient Disposition: HOME Condition: Improving Discharge Details Chief Complaint: RespSymp Clinical Impression: COPD (chronic obstructive pulmonary disease) Primary Care Provider: Lionel Ruggiero ED Provider: Joo Willis Home Meds and New Rx's Prescriptions: New prednisone 20 mg tablet 40 mg PO DAILY Qty: 10 RF: 0 Continued cetirizine 10 mg Tablet 10 mg PO DAILY RF: 0 montelukast 10 mg Tablet 10 mg PO DAILY RF: 0 fluticasone propionate [Flonase Allergy Relief] 50 mcg/actuation [place],Suspension 1 spray INTRANASAL BID RF: 0 sertraline 50 mg Tablet 50 mg PO DAILY RF: 0 Spiriva with HandiHaler 18 mcg Capsule, W/Inhalation Device 1 cap INHALATION DAILY RF: 0 Dulera 200-5 mcg/actuation Hfa Aerosol Inhaler 2 puff INHALATION BID RF: 0 albuterol sulfate 90 mcg/actuation aerosol powdr breath activated 2 inh IH Q4H PRN (Reason: shortness of breath or wheezing) Qty: 1 RF: 0 albuterol sulfate 2.5 mg /3 mL (0.083 %) solution for nebulization 2.5 mg IH Q4H PRN (Reason: shortness of breath or wheezing) Qty: 75 RF: 0 Discharge Instructions Instructions: COPD (Chronic Obstructive Pulmonary Disease) (ED) Additional Instructions: Use the inhaler with a spacer, 2 puffs every 4 hours as needed. You have been put on steroids. You will take these for the next 5 days. Return to the emergency department immediately if you develop any weakness, passing out, chest pain, or for any other concerning or worsening symptoms at all. Medical Decision Making This patient is a 48-year-old male who presents to the emergency department with chief complaint of shortness of breath. Based on this history, exam, this is most consistent with a COPD exacerbation. It is unlikely to be caused by acute coronary syndrome or a pulmonary embolism. Patient's vital signs are slightly abnormal with him being tachycardic. He was like this during his previous visits, he does admit to drinking alcohol today. Likely, he is slightly intoxicated. He does not appear to be critically ill however. He is walking around without difficulty. He is in no respiratory distress. He will be reevaluated once his chest x-ray is back. EKG shows no acute abnormalities. Patient's chest x-ray shows no infiltrates. Again, patient is in no respiratory distress. However, he does not feel much better. I offered the patient IV fluids, IV magnesium, another nebulizer treatment. However, he states that he would like to leave and that he has nebulizers he can use at home. He has an albuteroll inhaler to use at home as well. He has a primary care physician that he can follow-up with this week. He was given strict return precautions and discharge instructions and he agrees with the outpatient treatment plan. ECG Data Attestation: I personally reviewed and interpreted this ECG (s) as follows: (Showing sinus rhythm, rate of 108, no ST elevation or depression, normal intervals.) HPI Shortness of breath. This patient is a 48-year-old male with COPD as well as a chronic alcoholic and he continues to smoke. He presents today with a 2-day history of increasing cough, shortness of breath. He states he has felt warm but has not measured a temperature. He lives in a shed with a wood stove. He denies any vomiting, diarrhea. He states he has been slightly constipated. No dysuria or abdominal pain. He has been using his albuterol inhaler with a spacer without relief. He tried a nebulizer. It did not help. He was last on steroids a few months ago. No chest pain. Symptoms have been constant and getting worse. General Date/Time Provider Initiated Documentation: 07/31/19 19:31 . Related Data Home Medications Medication Instructions Recorded Confirmed albuterol sulfate 2 inh IH Q4H PRN #1 each 09/24/18 07/31/19 Dulera 2 puff INHALATION BID 05/02/19 07/31/19 Spiriva with HandiHaler 1 cap INHALATION DAILY 05/02/19 07/31/19 cetirizine 10 mg PO DAILY 05/02/19 07/31/19 fluticasone propionate [Flonase 1 spray INTRANASAL BID 05/02/19 07/31/19 Allergy Relief] montelukast 10 mg PO DAILY 05/02/19 07/31/19 sertraline 50 mg PO DAILY 05/02/19 07/31/19 albuterol sulfate 2.5 mg IH Q4H PRN #75 ml 06/03/19 07/31/19 prednisone 40 mg PO DAILY #10 tab 07/31/19 Previous Rx's Medication Instructions Recorded albuterol sulfate 2 inh IH Q4H PRN #1 each 09/24/18 albuterol sulfate 2.5 mg IH Q4H PRN #75 ml 06/03/19 prednisone 40 mg PO DAILY #10 tab 07/31/19 Allergies Allergy/AdvReac Type Severity Reaction Status Date / Time No Known Allergies Allergy Unverified 07/31/19 19:33 General Stated Complaint: RespSymp WANDA: 3 Review of Systems Narrative: Gen: has felt warm.. Card: no chest pain. Resp: positive for cough, difficulty breathing. Abd: no vomiting, abd pain. The rest of the 10 point review of systems is negative except as described in t he HPI and above in the ROS. [facility] Medical History COPD (chronic obstructive pulmonary disease) (Chronic) Depression (Chronic) Surgical History S/P arthroscopic knee surgery (Acute) Social History Smoking/Tobacco Use Status: Former Tobacco Use Quit Date: 06/17/19 Alcohol Intake: current Alcohol Intake frequency: 3 or more drinks per day Alcohol type: hard liquor Drug use: Never Substance use type: former substance user Details: smells stongly of alcohol currently Do you feel safe at home: Yes Do you feel safe in your relationship?: Yes Exam Narrative Exam Narrative: Gen: no acute distress, alert. Eyes: Pupils equal, reactive to light, EOMs intact. ENT: nose and ears normal, posterior pharynx without injection or swelling. Neck: normal ROM. Lung: faint wheezing bilaterally, otherwise clear, no respiratory distress. Card: tachycardic, normal S1, S2, no M/R/G. 2+ radial pulses bilaterally. Abd: soft, non-tender, no hepatosplenomegaly. Upper extremity: no evidence of trauma. Lower extremity: no edema. Neuro: speech normal, no gross motor deficits. Psych: alert and oriented to person, place time, normal affect. Skin: warm, intact. Course Vital Signs Vital signs: Vital Signs Temperature 36.8 C 07/31/19 19:30 Pulse 115 H 07/31/19 19:30 Respiratory Rate 28 H 07/31/19 19:30 Blood Pressure 147/104 H 07/31/19 19:30 Pulse Oximetry 97 07/31/19 19:30 Temperature 36.8 C 07/31/19 19:30 Temperature Source Skin 07/31/19 19:30 Pulse 115 H 07/31/19 19:30 Respiratory Rate 28 H 07/31/19 19:30 Blood Pressure 147/104 H 07/31/19 19:30 Pulse Oximetry 97 07/31/19 19:30 Oxygen Delivery Method Room Air 07/31/19 19:30 Oxygen Flow Rate 0 07/31/19 19:30 Pain Level 10 07/31/19 19:30
--- NOTE | 2019-07-31 19:44 | DI.RAD_ITS ---
EXAM: XR CHEST 2V PA LATERAL INDICATION: dyspnea. COMPARISON: XR CHEST 2V PA LATERAL from 09/24/2018 TECHNIQUE: 2D digital imaging was performed. FINDINGS: Cardiac and mediastinal contours have a normal appearance. The lungs appear clear. No infiltrate, e ffusion or pneumothorax is seen. IMPRESSION: No acute abnormality.
[2019-07-31] MEDS: predniSONE 20 MG TAB 60 MG PO (19:46)
[2019-07-31 19:47] VITALS: PULSE 20; RESP 7; RESP 8; O2SAT 97
[2019-07-31] MEDS: Albuterol/Ipratropium 3 ML UPD VIAL UPD (19:47)
--- NOTE | 2019-07-31 20:22 | DI.VRAD_ITS ---
PROCEDURE INFORMATION: Exam: XR Chest, 2 Views Exam date and time: 07/31/2019 7:46 PM Age: 48 years old Clinical history: Other: Dyspnea. TECHNIQUE: Imaging protocol: XR of the chest Views: 2 views. COMPARISON: CR XR CHEST 2V PA LATERAL 06/02/2019 11:23 PM FINDINGS: Lungs: Unremarkable. No consolidation. Pleural space: Unremarkable. No pleural effusion. No pneumothorax. Heart/Mediastinum: Unremarkable. No cardiomegaly. Bones/joints: Unremarkable. IMPRESSION: No acute findings. Dictated and Authenticated by: Sina Landers MD. Ordering:SUE Ge MD
[2019-07-31 20:42] VITALS: BP 104/77; PULSE 106; RESP 18; TEMP 36.6; O2SAT 96
== END 2019-07-31 20:50 | disposition home or self-care (01) ==
LOC: ER 20:34
PROVIDERS: Emergency Provider Emergency Medicine; PCP Nurse Practitioner Family
DX: J44.1 Chronic obstructive pulmonary disease with (acute) exacerbation (principal); Z87.891 Personal history of nicotine dependence
CPT/HCPCS: 80053; 93005; 94640; 99284; 71046; 85025; 93010; J7512; J7620

== ENCOUNTER 2019-08-14 23:20 | Emergency (ER) | payer MEDICAID, SELFPAY ==
--- NOTE | 2019-08-14 00:15 | DI.RAD_ITS ---
EXAM: XR CHEST 2V PA LATERAL CLINICAL HISTORY: cough, SOB, hx of COPD. TECHNIQUE: 2D digital imaging was performed. COMPARISON: XR CHEST 2V PA LATERAL from 07/31/2019 FINDINGS: LUNGS: Clear. No pleural abnormality seen. HEART: Normal. MEDIASTINUM: Normal. OTHER FINDINGS:Normal. IMPRESSION: No acute pulmonary findings.
[2019-08-14 23:27] VITALS: BP 122/88; PULSE 125; RESP 28; TEMP 36.7; O2SAT 95
[2019-08-14 23:44] VITALS: RESP 5; RESP 7
[2019-08-14] MEDS: Amoxicillin 875/Clav. 125 TAB PO (23:44)
[2019-08-14] MEDS: Albuterol/Ipratropium 3 ML UPD VIAL 6 ML UPD (23:44)
--- NOTE | 2019-08-15 00:09 | ED.GENADUL_ITS ---
Discharge Plan Disposition Patient Disposition: HOME Condition: Good Discharge Details Chief Complaint: RespSymp Clinical Impression: COPD (chronic obstructive pulmonary disease), Sinusitis Primary Care Provider: Lionel Ruggiero ED Provider: Zak Gonzalez Home Meds and New Rx's Prescriptions: New amoxicillin-pot clavulanate [Augmentin] 875-125 mg tablet 1 tab PO BID 14 Days Qty: 28 RF: 0 prednisone 20 mg tablet 20 mg PO DAILY Qty: 42 RF: 0 No Action cetirizine 10 mg Tablet 10 mg PO DAILY RF: 0 montelukast 10 mg Tablet 10 mg PO DAILY RF: 0 fluticasone propionate [Flonase Allergy Relief] 50 mcg/actuation [place],Suspension 1 spray INTRANASAL BID RF: 0 sertraline 50 mg Tablet 50 mg PO DAILY RF: 0 Spiriva with HandiHaler 18 mcg Capsule, W/Inhalation Device 1 cap INHALATION DAILY RF: 0 Dulera 200-5 mcg/actuation Hfa Aerosol Inhaler 2 puff INHALATION BID RF: 0 albuterol sulfate 90 mcg/actuation aerosol powdr breath activated 2 inh IH Q4H PRN (Reason: shortness of breath or wheezing) Qty: 1 RF: 0 albuterol sulfate 2.5 mg /3 mL (0.083 %) solution for nebulization 2.5 mg IH Q4H PRN (Reason: shortness of breath or wheezing) Qty: 75 RF: 0 Discharge Instructions Instructions: Sinusitis (ED), COPD (Chronic Obstructive Pulmonary Disease) (ED) Additional Instructions: At this time it appears that you have a COPD exacerbation in conjunction with sinusitis. Please take the antibiotic fluticasone nose spray and the steroid as directed. Continue to use your inhaler at home, as well as your breathing treatments every 4-6 hours for the next 2 days. If you notice any worsening of your symptoms, or any new symptoms such as vomiting, diarrhea, fever, chills, shortness of breath, chest pain, numbness, weakness, or fainting , please return immediately to the emergency department for reevaluation. Please follow up with your primary care provider as soon as possible for reassessment and reevaluation. As always, it was a pleasure participating in your medical care today. Referrals: Lionel Ruggiero NP [Primary Care Provider] - Medical Decision Making This is a 49-year-old male with a past medical history of COPD and chronic alcoholism who presents today for facial congestion. The patient states this is been going on for the last few days. He states this is his primary concern. He does admit to occasional fever and chills. No headache or neck pain. On review of systems though he also does admit to a cough for which he is taking breathing treatments and nebulizer treatments at home. Admits to mild green and white sputum. He states that this feels like his chronic COPD. He denies severe chest pain. He denies numbness tingling or weakness or other abnormalities. No other complaints at this time. Physical exam demonstrates wheezes in the lungs, normal oxygen saturation. Will give breathing treatments, get a chest x-ray, I do feel that he is suffering from notable sinusitis. Will prescribe Augmentin fluticasone for home. Screening EKG shows no evidence of STEMI or abnormality. 12:48 AM Chest x-ray is negative for acute process. No evidence of pneumonia or infiltrate. Oxygen saturations remain notably stable, patient is requesting to be discharged. Will give Flonase for home use, as well as Augmentin for treatment of sinusitis. Recommend continued use of his home inhaler and br eathing treatments. At this time signs and symptoms clinically inconsistent with ACS, severe pneumonia, respiratory difficulty. Patient appears clinically consistent with sinusitis in conjunction with chronic COPD. I have extensively reviewed the treatment plan and discharge instructions with the patient. I have addressed all patient concerns at this time. The patient was made aware of what symptoms to monitor for that would warrant a return to the emergency department. Discussed the plan with the patient, they demonstrate verbal understanding and agreement with our assessment and plan at this time. EKG 23: 38 Rate 114, WI 170, QTc 460, QRS 99, sinus tachycardia, no significant ST elevations or depressions, no evidence of STEMI. No significant T wave inversions. FINDINGS: Lungs: Unremarkable. No consolidation. Pleural space: Unremarkable. No evidence of pneumothorax. Heart/Mediastinum: Unremarkable. Heart size within normal limits for technique. Bones/joints: Unremarkable. IMPRESSION: No acute findings. Thank you for allowing us to participate in the care of your patient. Dictated and Authenticated by: Rodger Azevedo MD 08/15/2019 12:23 AM Eastern Time ([place] & [place]) HPI General Date/Time Provider Initiated Documentation: 08/14/19 23:26 . HPI Narrative: Earl moore is a 49-year-old male with a past medical history of COPD, chronic alcoholism who presents today for evaluation of cough, congestion, sinus congestion. He walked from [facility] up to the hospital this evening for evaluation. He states that for the last few days he has had a runny congested nose, notable sinus pressure. He also admits to a cough with productive white and green sputum, as well as occasional fever and chills at home. He has been taking breathing treatments and DuoNeb's at home which she states have been helping. No recent antibiotics, but he was on steroids few weeks ago. He is currently asking when he can be discharged. He denies any other complaints at this time. No headache no neck pain no severe ripping chest pain. He does state some mild chest achiness, but states that this feels like his COPD. No other complaints at this time. No other modifying factors. He states that his primary complaint is his nose and congestion and not his chest. Related Data Home Medications Medication Instructions Recorded Confirmed albuterol sulfate 2 inh IH Q4H PRN #1 each 09/24/18 08/14/19 Dulera 2 puff INHALATION BID 05/02/19 08/14/19 Spiriva with HandiHaler 1 cap INHALATION DAILY 05/02/19 08/14/19 cetirizine 10 mg PO DAILY 05/02/19 08/14/19 fluticasone propionate [Flonase 1 spray INTRANASAL BID 05/02/19 08/14/19 Allergy Relief] montelukast 10 mg PO DAILY 05/02/19 08/14/19 sertraline 50 mg PO DAILY 05/02/19 08/14/19 albuterol sulfate 2.5 mg IH Q4H PRN #75 ml 06/03/19 08/14/19 amoxicillin-pot clavulanate 1 tab PO BID 14 Days #28 tab 08/15/19 [Augmentin] prednisone 20 mg PO DAILY #42 tab 08/15/19 Previous Rx's Medication Instructions Recorded albuterol sulfate 2 inh IH Q4H PRN #1 each 09/24/18 albuterol sulfate 2.5 mg IH Q4H PRN #75 ml 06/03/19 amoxicillin-pot clavulanate 1 tab PO BID 14 Days #28 tab 08/15/19 [Augmentin] prednisone 20 mg PO DAILY #42 tab 08/15/19 Allergies Allergy/AdvReac Type Severity Reaction Status Date / Time No Known Allergies Allergy Unverified 08/14/19 23:34 General Stated Complaint: RespSymp WANDA: 3 Review of Systems All systems reviewed & are unremarkable except as noted in HPI and below PFSH Social History Smoking/Tobacco Use Status: Former Tobacco Use Quit Date: 06/17/19 Alcohol Intake: current Alcohol Intake frequency: 3 or more drinks per day Alcohol type: hard liquor Drug use: Never Substance use type: former substance user Details: smells stongly of alcohol currently Do you feel safe at home: Yes Do you feel safe in your relationship?: Yes Exam Narrative Exam Narrative: 1.Const: Well-nourished, Well-developed, appearing stated age 2.Eyes: PERRL, no conjunctival injection, and symmetrical lids. 3.ENT: Atraumatic external nose and ears. Moist MM. Neck: Symmetric, trachea midline, No thyromegaly. No facial swelling, mild tenderness to percussion on frontal and maxillary sinuses. Mild erythema in the posterior oropharynx. No nasal discharge. Patient demonstrates good movement of cervical neck. There is no nuchal rigidity, no nuchal tenderness. Patient is able to flex the neck without any difficulty or significant pain. Negative Kernig's and Brudzinski sign. 4.CVS: +S1/S2, No murmurs or gallops. Peripheral pulses 2+ and equal in all extremities. Brisk capillary refill in all extremities. 5.RESP: Unlabored respiratory effort. Mild wheezes throughout, no crackles or rhonchi. 6.GI: Soft, Nontender/Nondistended, No hepatosplenomegaly. No guarding or rebound. 7.MSK: Normocephalic/Atraumatic, Extremities w/o deformity or ttp No cyanosis or clubbing, Normal movement of all extremities 8.Skin: Warm, Dry. No rashes or lesions. 9.Neuro: bankruptcy processor II-XII grossly intact. Sensation grossly intact, no focal neurologic deficits. 10.Psych: (AAO) x3. Appropriate mood and affect Course Vital Signs Vital signs: Vital Signs Temperature 36.7 C 08/14/19 23:27 Pulse 125 H 08/14/19 23:27 Respiratory Rate 28 H 08/14/19 23:27 Blood Pressure 122/88 08/14/19 23:27 Pulse Oximetry 95 08/14/19 23:27 Temperature 36.7 C 08/14/19 23:27 Temperature Source Temporal Artery Scan 08/14/19 23:27 Pulse 125 H 08/14/19 23:27 Respiratory Rate 28 H 08/14/19 23:27 Respiratory Effort 08/14/19 23:38 Blood Pressure 122/88 08/14/19 23:27 Blood Pressure Position Sitting 08/14/19 23:27 Pulse Oximetry 95 08/14/19 23:27 Oxygen Delivery Method Room Air 08/14/19 23:44 Oxygen Flow Rate 0 08/14/19 23:44 Comment 08/14/19 23:27 Lab/Test Results Lab/Test Results: 08/14/19 23:35 Nasopharynx Influenza Types A,B Antigen - Final
[2019-08-15 00:11] VITALS: PULSE 124; RESP 24; TEMP 36.3; O2SAT 96
--- NOTE | 2019-08-15 00:23 | DI.VRAD_ITS ---
PROCEDURE INFORMATION: Exam: XR Chest, 2 Views Exam date and time: 08/14/2019 12:19 AM Age: 49 years old Clinical indication: Cough and shortness of breath; Patient HX: HX copd, cough, SOB TECHNIQUE: Imaging protocol: XR of the chest Views: 2 views. COMPARISON: CR XR CHEST 2V PA LATERAL 07/31/2019 7:44 PM FINDINGS: Lungs: Unremarkable. No consolidation. Pleural space: Unremarkable. No evidence of pneumothorax. Heart/Mediastinum: Unremarkable. Heart size within normal limits for technique. Bones/joints: Unremarkable. IMPRESSION: No acute findings. Dictated and Authenticated by: Rodger Azevedo MD. Ordering:JINA Crespo MD
[2019-08-15] MEDS: Fluticasone NASAL SPRAY 16 GM BTL NS (00:32)
[2019-08-15] MEDS: predniSONE 20 MG TAB 60 MG PO (01:06)
[2019-08-15 01:08] VITALS: PULSE 112; RESP 18; O2SAT 96
== END 2019-08-15 01:10 | disposition home or self-care (01) ==
PROVIDERS: Emergency Provider Student in an Organized Health Care Education/Training Program; PCP Nurse Practitioner Family
DX: J01.90 Acute sinusitis, unspecified (principal); J44.1 Chronic obstructive pulmonary disease with (acute) exacerbation; Z87.891 Personal history of nicotine dependence
CPT/HCPCS: 87449; 93005; 94640; 99284; 71046; 93010; J7512; J7620

== ENCOUNTER 2019-11-15 14:22 | Outpatient (CLI) | payer MEDICAID, SELFPAY ==
[2019-11-18 11:14] LABS: SARS-CoV-2 RNA Undetected (Undetected); SARS-CoV-2 Specimen Source Nasal
== END 2019-11-15 14:42 ==
PROVIDERS: PCP Nurse Practitioner Family; Visit Provider Nurse Practitioner Family
DX: Z20.828 Contact with and (suspected) exposure to other viral communicable diseases (principal); J06.9 Acute upper respiratory infection, unspecified
CPT/HCPCS: U0003

== ENCOUNTER 2019-12-28 07:48 | Outpatient (CLI) | payer MEDICAID, SELFPAY ==
--- NOTE | 2019-12-28 13:34 | DI.CT_ITS ---
EXAM: CT CHEST WO CLINICAL HISTORY: CHRONIC OBSTRUCTIVE PULMONARY DISEASE, J44.9 TECHNIQUE: COMPARISON: No exams were available for comparison FINDINGS: CT examination of the chest was performed without contrast administration. Images obtained through t he upper abdomen show unremarkable appearance of visualized portions of liver, spleen, pancreas, adre nals, and kidneys. Gallbladder and bile ducts are CT normal. There is no evident mediastinal or hilar adenopathy. No thoracic aortic aneurysm. There is mild sca ttered bronchiectasis. There is moderate central lobular emphysema most prominent in the upper lobes . No pulmonary nodule. No consolidation. No pleural effusion. IMPRESSION: Moderate central lobular emphysema. No other significant findings.
== END 2019-12-28 08:08 ==
PROVIDERS: PCP Nurse Practitioner Family; Visit Provider Internal Medicine
DX: J44.9 Chronic obstructive pulmonary disease, unspecified (principal); J43.8 Other emphysema
CPT/HCPCS: 71250

== ENCOUNTER 2020-02-06 19:42 | Emergency (ER) | payer MEDICAID, SELFPAY ==
[2020-02-06 19:53] VITALS: BP 114/81; PULSE 122; RESP 18; TEMP 37.3; O2SAT 93
[2020-02-06 19:56] VITALS: RESP 16
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
--- NOTE | 2020-02-06 20:15 | DI.RAD_ITS ---
EXAM: XR ANKLE LT COMPLETE CLINICAL HISTORY: unknown injury TECHNIQUE: COMPARISON: No exams were available for comparison FINDINGS: Three views were obtained. There is moderate soft tissue swelling of the ankle. Ankle mortise is we ll maintained. No fracture identified. IMPRESSION:
--- NOTE | 2020-02-06 20:15 | DI.RAD_ITS ---
EXAM: XR ELBOW RT COMPLETE CLINICAL HISTORY: unknown injury TECHNIQUE: COMPARISON: No exams were available for comparison FINDINGS: Three views were obtained. There is a probable small elbow joint effusion and there is soft tissue s welling adjacent to the olecranon. Tiny osseous or calcific fragment is seen adjacent to the tip of the olecranon. Additionally there is osseous fragment of uncertain age of the proximal articular lip of the olecranon which may represent a fracture, new or unhealed. Clinical correlation requested. A dditional evaluation with CT may be useful. IMPRESSION:
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
--- NOTE | 2020-02-06 20:53 | DI.VRAD_ITS ---
PROCEDURE INFORMATION: Exam: XR Right Elbow Exam date and time: 02/06/2020 8:37 PM Age: 49 years old Clinical indication: Elbow; Right; Patient HX: Pain and swelling with no known trauma TECHNIQUE: Imaging protocol: XR Right elbow. Views: 3 or more views. COMPARISON: No relevant prior studies available. FINDINGS: Bones/joints: Focal lucency consistent with fracture involving the tip of the olecranon as seen on the lateral view is of indeterminate age but could represent recent injury. No other acute fractures are detected. Small osteophytes are seen along a margins throughout the right elbow. Soft tissues: Unremarkable. IMPRESSION: Fracture of the tip of the olecranon seen on the lateral view is of indeterminate age and correlation with clinical data is requested. Dictated and Authenticated by: Artem Omer MD. Ordering:OTILIA Arita MD
[2020-02-06 21:25] VITALS: BP 132/86; PULSE 101; RESP 18; TEMP 36.8; O2SAT 94
--- NOTE | 2020-02-08 11:01 | PDOC.ERCMPRO ---
- If Service Date Differs Date of service: 02/08/20 Time of Service: 11:01 Care Management Progress Note At the request of ED provider, CM coordinates follow up appointment for Broderick with his PCP.
== END 2020-02-06 21:45 | disposition home or self-care (01) ==
PROVIDERS: Emergency Provider Physician Assistant; PCP Nurse Practitioner Family
DX: S93.492A Sprain of other ligament of left ankle, initial encounter (principal); S52.024A Nondisplaced fracture of olecranon process without intraarticular extension of right ulna, initial encounter for closed fracture; T21.03XA Burn of unspecified degree of upper back, initial encounter; X58.XXXA Exposure to other specified factors, initial encounter; F10.120 Alcohol abuse with intoxication, uncomplicated; R60.0 Localized edema
CPT/HCPCS: 29515; 99284; 73080; 73610; L1902; L3650

== ENCOUNTER 2020-02-10 10:14 | Outpatient (CLI) | payer MEDICAID, SELFPAY ==
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
== END 2020-02-10 10:34 ==
PROVIDERS: PCP Nurse Practitioner Family; Visit Provider Family Medicine
DX: R22.0 Localized swelling, mass and lump, head (principal); G50.1 Atypical facial pain; J34.1 Cyst and mucocele of nose and nasal sinus; G31.89 Other specified degenerative diseases of nervous system
CPT/HCPCS: 70450; 70486

== ENCOUNTER 2020-04-30 10:29 | Outpatient (CLI) | payer OTHER, SELFPAY | END 2020-04-30 10:49 | PROVIDERS: PCP Nurse Practitioner Family; Visit Provider Pediatrics Pediatric Rheumatology | DX: Z02.71 Encounter for disability determination (principal); R06.09 Other forms of dyspnea | CPT/HCPCS: 94618 ==

== ENCOUNTER 2020-05-18 12:42 | Outpatient (CLI) | payer MEDICAID, SELFPAY | END 2020-05-18 13:02 | PROVIDERS: PCP Nurse Practitioner Family; Visit Provider Pediatrics Pediatric Rheumatology | DX: Z02.71 Encounter for disability determination (principal) | CPT/HCPCS: 94618 ==

== ENCOUNTER 2020-08-23 17:44 | Inpatient (IN) | payer MEDICAID, SELFPAY ==
[2020-08-23] VITALS (22 sets, daily range): BP systolic 121–136; BP diastolic 72–89; PULSE 106–127; RESP 17–27; TEMP 36.4; O2SAT 91–96
--- NOTE | 2020-08-23 17:45 | RT.EKG_ITS ---
APPROVED REPORT Exam: Resting ECG Patient Location: E HR:113 bpm ECG Measurements Heart Rate 113 AXIS AZ 193 P 78 QRSd 98 QRS 64 QT 327 T 31 QTc 448 Conclusion Sinus tachycardia..No st elevation
--- NOTE | 2020-08-23 18:00 | DI.CT_ITS ---
EXAM: CT CHEST PE CTA CLINICAL HISTORY: Shortness of breath, tachycardia. TECHNIQUE: Imaging Protocol: Axial CT angiography was performed with multi-slice acquisition and mu lti-planar and/or 3D reconstructions. CONTRAST MATERIAL: Intravenous: Omnipaque 350 Contrast volume:100 mL COMPARISON: CT CT CHEST WO from 12/28/2019 FINDINGS: Pulmonary Arteries: No evidence of filling defect to suggest pulmonary emboli. Tracheobronchial tree: Patent where visualized. Mediastinum and Aurea: No dominant adenopathy or fluid collection. Pulmonary parenchyma: Moderate centrilobular emphysematous changes are present. There is dependent at electasis. There are areas of consolidation in the right middle and right lower lobes. These may repr esent atelectasis or pneumonia. No pulmonary nodules. Pleura: There is a large right pneumothorax. It occupies approximately 50 percent of the right hemith orax. There is no mediastinal shift. No left pneumothorax is identified. No pleural effusion is prese nt. Heart: The heart is not dilated. No coronary artery calcifications are seen. No pericardial effusion. Aorta: Thoracic aorta non-dilated. No evidence of dissection. Upper abdomen: Unremarkable. Bones: Degenerative changes. No acute osseous abnormality. Soft tissues: Unremarkable. IMPRESSION: 1. No evidence of pulmonary embolism, thoracic aortic dissection or aneurysm. 2. Large right pneumothorax occupying approximately 50 percent of the hemithorax. No midline shift. 3. Small areas of consolidation in the right middle lower lobes which likely reflect atelectasis. RADIATION DOSE DELIVERED: 380.64mGy.cm Total DLP DATA REPOSITORY: All CT scans at this facility are submitted to the National Radiology Data Registry (NRDR) Dose Index Registry (DIR) with the [employer] ([employer]). RADIATION OPTIMIZATION: All CT scans at this facility use at least one of these dose optimization te chniques: automated exposure control; mA and/or kV adjustment per patient size (includes targeted exa ms where dose is matched to clinical indication); or iterative reconstruction.
--- NOTE | 2020-08-23 18:00 | DI.CT_ITS ---
EXAM: CT HEAD WO CLINICAL HISTORY: fall, hit head. TECHNIQUE: Imaging Protocol: Axial computed tomography images with coronal and sagittal reformatted images were created and reviewed COMPARISON: CT CT HEAD FACIAL WO from 02/10/2020 FINDINGS: Ventricles and Extra axial spaces: Normal in size and morphology for the patient's age. Hemorrhage: None. Cerebral parenchyma: Normal. Midline shift: None. Brainstem/Cerebellum: Normal. Calvarium: Normal. Visualized Paranasal sinuses/Mastoids: Clear. Soft Tissues: Unremarkable. IMPRESSION: No acute intracranial process. RADIATION DOSE DELIVERED: 767.15mGy.cm Total DLP DATA REPOSITORY: All CT scans at this facility are submitted to the National Radiology Data Registry (NRDR) Dose Index Registry (DIR) with the [employer] (ACR). RADIATION OPTIMIZATION: All CT scans at this facility use at least one of these dose optimization te chniques: automated exposure control; mA and/or kV adjustment per patient size (includes targeted exa ms where dose is matched to clinical indication); or iterative reconstruction.
[2020-08-23 18:28] LABS: Abs Immature Grans 0.03 10^3/uL (0.0-0.06); Absolute Basophil Count 0.08 10^3/uL (0.0-0.2); Absolute Eosinophil Count 0.56 10^3/uL (0.0-0.7); Absolute Lymphocyte Count 3.08 10^3/uL (1.2-3.4); Absolute Monocyte Count 1.44 10^3/uL (0.1-0.8); Absolute Neutrophil Count 4.93 10^3/uL (1.2-6.7); Basophils % 0.8; Eosinophils % 5.5; HCT 45.3 % (40.0-50.0); HGB 15.9 g/dL (13.5-17.5); Immature Grans % 0.3; Lymphocytes % 30.4; MCH 35.3 pg (27.0-33.0); MCHC 35.1 % (32.0-36.0); MCV 100.4 fL (80-95); MPV 9.9 fL (8.0-11.0); Monocytes % 14.2; Neutrophils % 48.8; Nucleated RBC 0 %; Platelet Count 354 10^3/uL (130-400); RBC 4.51 10^6/uL (4.36-5.78); RDW 14.2 % (11.8-14.1); RDW-SD 52.7 fL; WBC 10.12 10^3/uL (4.4-10.8)
[2020-08-23 18:38] LABS: PTT Activated 26.8 sec (21.0-27.5); Prothrombin Time 9.8 sec (9.3-11.0)
[2020-08-23 18:48] LABS: ALT 23 U/L (16-63); AST 18 U/L (15-37); Albumin 3.3 g/dL (3.4-5.0); Alkaline Phosphatase 58 U/L (46-116); Anion Gap 13.5 mmol/L (3-11); BUN 7 mg/dL (7-18); Bilirubin, Total 0.2 mg/dL (0.2-1.0); CO2 23.5 mmol/L (21.0-32.0); CREATININE 0.71 mg/dL (0.70-1.30); Calcium 8.4 mg/dL (8.5-10.1); Chloride 103 mmol/L (98-107); Glucose 108 mg/dL (74-106); Magnesium 2.1 mg/dL (1.8-2.4); NT-proBNP 81 pg/mL (<300); Potassium 3.6 mmol/L (3.5-5.1); Sodium 140 mmol/L (136-145); TSH (W/Ref FT4) 1.87 uIU/mL (0.36-3.74); Total Protein 7.7 g/dL (6.4-8.2)
--- NOTE | 2020-08-23 18:51 | W.ED.GENAD ---
Discharge Plan Disposition Patient Disposition: OTHER Condition: Stable Discharge Details Chief Complaint: RespSymp Clinical Impression: Pneumothorax, right Primary Care Provider: Lionel Ruggiero ED Provider: Lexa Carrillo Home Meds and New Rx's Prescriptions: No Action cetirizine 10 mg Tablet 10 mg PO DAILY RF: 0 montelukast 10 mg Tablet 10 mg PO DAILY RF: 0 fluticasone propionate [Flonase Allergy Relief] 50 mcg/actuation [place],Suspension 1 spray INTRANASAL BID RF: 0 sertraline 50 mg Tablet 50 mg PO DAILY RF: 0 Dulera 200-5 mcg/actuation Hfa Aerosol Inhaler 2 puff INHALATION BID RF: 0 albuterol sulfate 90 mcg/actuation aerosol powdr breath activated 2 inh IH Q4H PRN (Reason: shortness of breath or wheezing) Qty: 1 RF: 0 albuterol sulfate 2.5 mg /3 mL (0.083 %) solution for nebulization 2.5 mg IH Q4H PRN (Reason: shortness of breath or wheezing) Qty: 75 RF: 0 Medical Decision Making 50-year-old gentleman, current smoker, history of COPD, presents to the ER for evaluation. He is a rather vague and poor historian. He is reporting right-sided chest pain, shortness of breath, worse with movement or deep breathing that has been present for the past 2 days. He initially denies any trauma but then later tells me that he has fallen multiple times and he has struck his head. Clinically he appears slightly uncomfortable, tachycardia, but O2 sats are 95% on room air. Differential includes but excluded to PE, ACS, pneumothorax, head injury, intracranial hemorrhage, infectious process, COPD exacerbation, etc. We will initiate a cardiac work-up, given his tachycardia, will obtain CTA of his chest for further evaluation. Laboratory values do not reveal any obvious emergent process. Patient reports increasing pain, will be given 2 mg IV morphine. Reports some relief with his morphine. CTA read by virtual radiology as a 50% pneumothorax on the right side. I discussed the findings with Dr. Walker I then placed a call to our surgical team. I discussed findings with patient. Case was discussed with Dr. Matt, surgery. This occurred at 2044. He will come to the ER to evaluate the patient, place chest tube and admit. Please see his note. Repeat chest x-ray status post chest tube reveals interval near complete reexpansion of right lung. Medical Records Medical records reviewed: Yes I reviewed the patient's medical records. Lab Data Lab results reviewed: Yes I reviewed the patient's lab results. Labs: Laboratory Tests Range/Units 08/23/20 08/23/20 08/23/20 18:17 18:17 18:17 WBC (4.4-10.8) 10^3/uL 10.12 RBC (4.36-5.78) 10^6/uL 4.51 Hgb (13.5-17.5) g/dL 15.9 Hct (40.0-50.0) % 45.3 MCV (80-95) fL 100.4 H MCH (27.0-33.0) pg 35.3 H MCHC (32.0-36.0) % 35.1 RDW (11.8-14.1) % 14.2 H Plt Count (130-400) 10^3/uL 354 MPV (8.0-11.0) fL 9.9 Immature Gran % 0.3 Neutrophils % 48.8 Lymphocytes % 30.4 Monocytes % 14.2 Eosinophils % 5.5 Basophils % 0.8 Nucleated RBC % % 0 Absolute Neutrophils (1.2-6.7) 10^3/uL 4.93 Absolute Lymphocytes (1.2-3.4) 10^3/uL 3.08 Absolute Monocytes (0.1-0.8) 10^3/uL 1.44 H Absolute Eosinophils (0.0-0.7) 10^3/uL 0.56 Absolute Basophils (0.0-0.2) 10^3/uL 0.08 PT (9.3-11.0) sec 9.8 INR (0.9-1.1) 1.0 APTT (21.0-27.5) sec 26.8 Sodium (136-145) mmol/L 140 Potassium (3.5-5.1) mmol/L 3.6 Chloride (98-107) mmol/L 103 Carbon Dioxide (21.0-32.0) mmol/L 23.5 Anion Gap (3-11) mmol/L 13.5 H BUN (7-18) mg/dL 7 Creatinine (0.70-1.30) mg/dL 0.71 Estimated GFR/1.73 m2 (mL/min/1.73m2) >= 60.00 Glucose (74-106) mg/dL 108 H Calcium (8.5-10.1) mg/dL 8.4 L Magnesium (1.8-2.4) mg/dL 2.1 Total Bilirubin (0.2-1.0) mg/dL 0.2 AST (15-37) U/L 18 ALT (16-63) U/L 23 Alkaline Phosphatase (46-116) U/L 58 Troponin I (<0.06) ng/mL < 0.05 NT-Pro-B Natriuret Pep (<300) pg/mL 81 Total Protein (6.4-8.2) g/dL 7.7 Albumin (3.4-5.0) g/dL 3.3 L TSH (0.36-3.74) uIU/mL 1.87 Range/Units 08/23/20 21:12 WBC (4.4-10.8) 10^3/uL RBC (4.36-5.78) 10^6/uL Hgb (13.5-17.5) g/dL Hct (40.0-50.0) % MCV (80-95) fL MCH (27.0-33.0) pg MCHC (32.0-36.0) % RDW (11.8-14.1) % Plt Count (130-400) 10^3/uL MPV (8.0-11.0) fL Immature Gran % Neutrophils % Lymphocytes % Monocytes % Eosinophils % Basophils % Nucleated RBC % % Absolute Neutrophils (1.2-6.7) 10^3/uL Absolute Lymphocytes (1.2-3.4) 10^3/uL Absolute Monocytes (0.1-0.8) 10^3/uL Absolute Eosinophils (0.0-0.7) 10^3/uL Absolute Basophils (0.0-0.2) 10^3/uL PT (9.3-11.0) sec INR (0.9-1.1) APTT (21.0-27.5) sec Sodium (136-145) mmol/L Potassium (3.5-5.1) mmol/L Chloride (98-107) mmol/L Carbon Dioxide (21.0-32.0) mmol/L Anion Gap (3-11) mmol/L BUN (7-18) mg/dL Creatinine (0.70-1.30) mg/dL Estimated GFR/1.73 m2 (mL/min/1.73m2) Glucose (74-106) mg/dL Calcium (8.5-10.1) mg/dL Magnesium (1.8-2.4) mg/dL Total Bilirubin (0.2-1.0) mg/dL AST (15-37) U/L ALT (16-63) U/L Alkaline Phosphatase (46-116) U/L Troponin I (<0.06) ng/mL Cancelled NT-Pro-B Natriuret Pep (<300) pg/mL Total Protein (6.4-8.2) g/dL Albumin (3.4-5.0) g/dL TSH (0.36-3.74) uIU/mL ECG Data Attestation: I personally reviewed and interpreted this ECG (s) as follows: Interpretation: Please see official report by Dr. Melendrez. Sinus tachycardia, ventricular of 113. No STEMI. HPI General Mode of arrival: ambulatory. Date/Time Provider Initiated Documentation: 08/23/20 17:45. Limitations to Documentation: no limitations. Information obtained by: patient. HPI Narrative: This is a 50-year-old gentleman who is a rather vague and poor historian. Initially complains of shortness of breath for the past few days. He at first tells me he has had a cough but then later tells me that this cough is his baseline cough that he is a smoker. Denies any sputum. He denies any fever. He later tells me that he fell he believes 3 days ago, and then tells me he believes that he fell multiple times. He states that he fell onto his right side, and does believe that he struck his head but denies any LOC. He denies any abdominal pain, nausea, vomiting, pain or swelling in his calf, extremity injury. He tells me that he has pain across his entire right side of his chest, radiates into his back but not into his neck or down his arm. He has been taking Tylenol for his discomfort but reports that the pain is still moderate-severe. Related Data Home Medications Medication Instructions Recorded Confirmed albuterol sulfate 2 inh IH Q4H PRN #1 each 09/24/18 02/06/20 Dulera 2 puff INHALATION BID 05/02/19 02/06/20 cetirizine 10 mg PO DAILY 05/02/19 02/06/20 fluticasone propionate [Flonase 1 spray INTRANASAL BID 05/02/19 02/06/20 Allergy Relief] montelukast 10 mg PO DAILY 05/02/19 02/06/20 sertraline 50 mg PO DAILY 05/02/19 02/06/20 albuterol sulfate 2.5 mg IH Q4H PRN #75 ml 06/03/19 02/06/20 Previous Rx's Medication Instructions Recorded albuterol sulfate 2 inh IH Q4H PRN #1 each 09/24/18 albuterol sulfate 2.5 mg IH Q4H PRN #75 ml 06/03/19 Allergies Allergy/AdvReac Type Severity Reaction Status Date / Time No Known Allergies Allergy Unverified 08/14/19 23:34 General Stated Complaint: RespSymp WANDA: 3 Review of Systems Constitutional Constitutional: Denies fatigue, Denies fever(s) and Denies weakness Eyes Eyes: Denies change in vision ENT Ears, Nose, Mouth, and Throat: Denies neck pain and Denies sore throat Cardiovascular Cardiovascular: Reports chest pain and Reports dyspnea Respiratory Respiratory: Reports cough, Reports dyspnea and Denies wheezing Gastrointestinal Gastrointestinal: Denies abdominal pain, Denies nausea and Denies vomiting Genitourinary Genitourinary: Denies dysuria Musculoskeletal Musculoskeletal: Denies neck pain, Denies numbness and Denies tingling Integumentary/Breasts Skin/Breast: Denies rash Neurologic Neurologic: Denies numbness, Denies tingling and Denies weakness Endocrine Endocrine: Denies fatigue Allergic/Immunologic Allergic/Immunologic: Denies wheezing [facility] Medical History (Updated 08/23/20 @ 22:26 by BROOKE Bach) COPD (chronic obstructive pulmonary disease) Depression Pneumothorax, right Surgical History S/P arthroscopic knee surgery Social History Smoking/Tobacco Use Status: Current every day Tobacco Type: cigarettes Smoking risk assessment performed?: Yes Alcohol Intake: current Alcohol Intake frequency: 3 or more drinks per day Alcohol type: hard liquor Drug use: Never Substance use type: former substance user Do you feel safe at home: Yes Do you feel safe in your relationship?: Yes Exam Const General: cooperative and other (Appears uncomfortable but no acute distress) Orientation: alert, awake and oriented x3 [facility] Head: normal to inspection, normocephalic and atraumatic Mouth: moist mucous membranes Eyes General: appearance normal, both eyes and all related structures Eyelids: eyelids normal Conjunctivae: conjunctivae normal Neck Neck: normal visual inspection, full ROM, no meningeal signs, trachea midline, supple and nontender Chest Chest: normal inspection of the chest, no crepitus and tenderness (Diffuse right lateral and anterior) Resp Effort & Inspection: normal respiratory effort and able to speak in complete sentences Auscultation: diminished lung sounds bilaterally (Bases, worse on the right) Cardio Rate: tachycardic (120s) Rhythm: regular rhythm GI Palpation: soft, not firm, no guarding and nontender Auscultation: normal bowel sounds Back/Spine/Pelvis Back: No back tenderness Skin General skin exam: no rashes or lesions noted Neuro General: patient alert, patient awake, patient oriented x3, moves all extremities and no focal motor deficits Cognition: normal cognition Speech: speech normal Gait: normal gait Sensory Exam: no sensory deficits noted Extrem General: normal to inspection, full ROM, capillary refill normal and no pedal edema Psych Appearance: grossly normal Mental Status: mental status grossly normal Course Vital Signs Vital signs: Vital Signs Temperature 36.4 C L 08/23/20 17:51 Pulse 123 H 08/23/20 17:51 Blood Pressure 121/72 08/23/20 17:51 Pulse Oximetry 95 08/23/20 17:51 Temperature 36.4 C L 08/23/20 17:51 Temperature Source Temporal Artery Scan 08/23/20 17:51 Pulse 123 H 08/23/20 17:51 Pulse 116 H 08/23/20 18:40 Respiratory Rate 25 H 08/23/20 18:40 Respiratory Effort Labored 08/23/20 18:22 Blood Pressure 121/72 08/23/20 17:51 Blood Pressure Position Sitting 08/23/20 17:51 Pulse Oximetry 91 L 08/23/20 18:30 Oxygen Delivery Method Room Air 08/23/20 17:51 Oxygen Flow Rate 0 08/23/20 17:51 Pain Level 8 08/23/20 17:51 Lab/Test Results Lab/Test Results: Laboratory Tests Range/Units 08/23/20 08/23/20 18:17 18:17 WBC (4.4-10.8) 10^3/uL 10.12 RBC (4.36-5.78) 10^6/uL 4.51 Hgb (13.5-17.5) g/dL 15.9 Hct (40.0-50.0) % 45.3 MCV (80-95) fL 100.4 H MCH (27.0-33.0) pg 35.3 H MCHC (32.0-36.0) % 35.1 RDW (11.8-14.1) % 14.2 H Plt Count (130-400) 10^3/uL 354 MPV (8.0-11.0) fL 9.9 Immature Gran % 0.3 Neutrophils % 48.8 Lymphocytes % 30.4 Monocytes % 14.2 Eosinophils % 5.5 Basophils % 0.8 Nucleated RBC % % 0 Absolute Neutrophils (1.2-6.7) 10^3/uL 4.93 Absolute Lymphocytes (1.2-3.4) 10^3/uL 3.08 Absolute Monocytes (0.1-0.8) 10^3/uL 1.44 H Absolute Eosinophils (0.0-0.7) 10^3/uL 0.56 Absolute Basophils (0.0-0.2) 10^3/uL 0.08 PT (9.3-11.0) sec 9.8 INR (0.9-1.1) 1.0 APTT (21.0-27.5) sec 26.8 Critical Care Time Critical Care Time Critical Care Time: Yes Total Critical Care Time: 35 Attestation: Upon my evaluation, this patient had a high probability of clinically significant, life-threatening deterioration due to their current medical conditions, which required my direct attention, intervention, and personal management. I have personally provided greater than 30 minutes of critical care time exclusive of the time spend on separately billable procedures. Time includes obtaining a history, examining the patient, pulse oximetry, review of laboratory data, radiology results, discussion with consultants, arranging urgent treatment with development of a management plan, evaluation of patient's response to treatment, and monitoring for potential decompensation. Interventions were performed as documented above.
[2020-08-23 18:55] LABS: Troponin I < 0.05 ng/mL (<0.06)
[2020-08-23] MEDS: Normal Saline Flush 10 ML SYR IVP ×2 (19:30→23:54)
[2020-08-23] MEDS: Normal Saline - Diluent 50 ML VIAL IV (19:30)
[2020-08-23] MEDS: Omnipaque 350 MG/ML 100 ML BTL IJ (19:30)
--- NOTE | 2020-08-23 20:20 | DI.VRAD_ITS ---
PROCEDURE INFORMATION: Exam: CT Head Without Contrast Exam date and time: 08/23/2020 6:15 PM Age: 50 years old Clinical indication: Other: Fall, hit head TECHNIQUE: Imaging protocol: Computed tomography of the head without contrast. COMPARISON: CT HEAD FACIAL WO 02/10/2020 1:00 PM FINDINGS: Brain: There is mild diffuse cerebral atrophy present, consistent with this patient's age. No hemorrhage. Unremarkable white matter. No mass effect. Cerebral ventricles: No ventriculomegaly. Bones/joints: Unremarkable. No acute fracture. Paranasal sinuses: Visualized sinuses are unremarkable. No fluid levels. Mastoid air cells: Visualized mastoid air cells are well aerated. Soft tissues: Unremarkable. IMPRESSION: No acute intracranial abnormality. Dictated and Authenticated by: Jose A Oliveira MD. Ordering:TIN Lindquist MD
--- NOTE | 2020-08-23 20:46 | DI.VRAD_ITS ---
PROCEDURE INFORMATION: Exam: CT Angiography Chest With Contrast Exam date and time: 08/23/2020 6:15 PM Age: 50 years old Clinical indication: Other: Shortness of breath, tachycardia, poor historian vague regarding prior trauma TECHNIQUE: Imaging protocol: Computed tomographic angiography of the chest with intravenous contrast. 3D rendering (Not supervised by radiologist): MIP and/or 3D reconstructed images were created by the technologist. Radiation optimization: All CT scans at this facility use at least one of these dose optimization techniques: automated exposure control; mA and/or kV adjustment per patient size (includes targeted exams where dose is matched to clinical indication); or iterative reconstruction. Contrast material: OMNIPAQUE 350; Contrast volume: 100 ml; Contrast route: INTRAVENOUS (IV); COMPARISON: CT CHEST WO 12/28/2019 1:13 PM FINDINGS: Pulmonary arteries: Normal. No pulmonary emboli. Aorta: Ascending aorta minimally dilated to 3.4 cm. Lungs: See Pleural space finding. Pleural space: Approximately 50% right pneumothorax. Emphysema. Heart: Heart normal in size. No pericardial effusion. No pneumopericardium. Mediastinal space: No pneumomediastinum. No mediastinal shift to the left. Lymph nodes: Unremarkable. No enlarged lymph nodes. Bones/joints: No fracture.The spine demonstrates mild degenerative changes at multiple levels. Soft tissues: Unremarkable. Other findings: No midline shift. IMPRESSION: 1. Right pneumothorax. 2. No mediastinal shift. 3. Emphysema. 4. Minimally dilated ascending aorta. THIS REPORT CONTAINS FINDINGS THAT MAY BE CRITICAL TO PATIENT CARE. The findings were verbally communicated via telephone conference with BROOKE Carrillo, 08/23/2020 8:40 PM EST. The findings were acknowledged and understood. Dictated and Authenticated by: Jose A Oliveira MD. Ordering:TIN Lindquist MD
--- NOTE | 2020-08-23 21:45 | DI.RAD_ITS ---
EXAM: XR PORTABLE CHEST AP POST LINE CLINICAL HISTORY: s/p chest tube TECHNIQUE: 2D digital imaging was performed. COMPARISON: No exams were available for comparison FINDINGS: MEDIASTINUM: Normal. HEART: Normal. PULMONARY VASCULATURE: Normal. LUNGS: Atelectasis in the right lower lobe. PLEURAL SPACE: The right lung is re-expanded. The right pneumothorax appears to have resolved. No p leural effusion. BONE:Within normal limits for the patient's age. OTHER FINDINGS:There has been interval placement of a right chest tube with its tip in the right supr ahilar region. IMPRESSION: Interval placement of a right chest tube with resolution of the right pneumothorax. Mild right basilar atelectasis. DATA REPOSITORY: RADIATION DOSE DELIVERED:
--- NOTE | 2020-08-23 22:15 | HPE_ITS ---
Date of service: 08/23/20 Time of Service: 22:16 Assessment and Plan Assessment and plan (1) Pneumothorax, right: Status: Acute History of Present Illness Narrative: This a 50-year-old gentleman who fell 2 days ago striking his right chest. Since that time he has had dyspnea on exertion and right-sided chest pain. He presented to the emergency room with these complaints. He states he is not short of breath at rest but does have chest pain at rest in the right side. Review of Systems Cardiovascular Cardiovascular: Reports dyspnea on exertion Respiratory Respiratory: Reports dyspnea on exertion [facility] Medical History (Updated 08/23/20 @ 22:26 by BROOKE Bach) COPD (chronic obstructive pulmonary disease) Depression Pneumothorax, right Surgical History S/P arthroscopic knee surgery Social History Smoking/Tobacco Use Status: Current every day Tobacco Type: cigarettes Smoking risk assessment performed?: Yes Alcohol Intake: current Alcohol Intake frequency: 3 or more drinks per day Alcohol type: hard liquor Drug use: Never Substance use type: former substance user Do you feel safe at home: Yes Do you feel safe in your relationship?: Yes Meds Home Medications and Allergies Home Medications Medication Instructions Recorded Confirmed Type albuterol sulfate 2 inh IH Q4H PRN #1 each 09/24/18 02/06/20 Rx Dulera 2 puff INHALATION BID 05/02/19 02/06/20 History cetirizine 10 mg PO DAILY 05/02/19 02/06/20 History fluticasone propionate [Flonase 1 spray INTRANASAL BID 05/02/19 02/06/20 History Allergy Relief] montelukast 10 mg PO DAILY 05/02/19 02/06/20 History sertraline 50 mg PO DAILY 05/02/19 02/06/20 History albuterol sulfate 2.5 mg IH Q4H PRN #75 ml 06/03/19 02/06/20 Rx Allergies Allergy/AdvReac Type Severity Reaction Status Date / Time No Known Allergies Allergy Unverified 08/14/19 23:34 Exam HENMT Head: normal to inspection Neck Neck: normal visual inspection Chest Chest: tenderness (Tenderness over the right mid lateral chest wall) rib Resp Effort & Inspection: normal respiratory effort Auscultation: other (Breath sounds are decreased on the right distant on the left) Cardio Rhythm: regular rhythm Heart Sounds: S1 normal and S2 normal GI Inspection: normal to inspection Palpation: soft Neuro General: patient alert, patient awake and patient oriented x3 Results Labs Result diagrams: 08/23/20 18:17 08/23/20 18:17 Labs: Laboratory Results - last 24 hr 08/23/20 08/23/20 08/23/20 18:17 18:17 18:17 WBC 10.12 RBC 4.51 Hgb 15.9 Hct 45.3 MCV 100.4 H MCH 35.3 H MCHC 35.1 RDW 14.2 H Plt Count 354 MPV 9.9 Immature Gran % 0.3 Neutrophils % 48.8 Lymphocytes % 30.4 Monocytes % 14.2 Eosinophils % 5.5 Basophils % 0.8 Nucleated RBC % 0 Absolute Neutrophils 4.93 Absolute Lymphocytes 3.08 Absolute Monocytes 1.44 H Absolute Eosinophils 0.56 Absolute Basophils 0.08 PT 9.8 INR 1.0 APTT 26.8 Sodium 140 Potassium 3.6 Chloride 103 Carbon Dioxide 23.5 Anion Gap 13.5 H BUN 7 Creatinine 0.71 Estimated GFR/1.73 m2 >= 60.00 Glucose 108 H Calcium 8.4 L Magnesium 2.1 Total Bilirubin 0.2 AST 18 ALT 23 Alkaline Phosphatase 58 Troponin I < 0.05 NT-Pro-B Natriuret Pep 81 Total Protein 7.7 Albumin 3.3 L TSH 1.87 08/23/20 21:12 WBC RBC Hgb Hct MCV MCH MCHC RDW Plt Count MPV Immature Gran % Neutrophils % Lymphocytes % Monocytes % Eosinophils % Basophils % Nucleated RBC % Absolute Neutrophils Absolute Lymphocytes Absolute Monocytes Absolute Eosinophils Absolute Basophils PT INR APTT Sodium Potassium Chloride Carbon Dioxide Anion Gap BUN Creatinine Estimated GFR/1.73 m2 Glucose Calcium Magnesium Total Bilirubin AST ALT Alkaline Phosphatase Troponin I Cancelled NT-Pro-B Natriuret Pep Total Protein Albumin TSH Last Vital Signs Temp 97.5 F L 08/23/20 17:51 Pulse 110 H 08/23/20 20:50 Resp 18 08/23/20 20:51 BP 136/89 08/23/20 20:50 Pulse Ox 95 08/23/20 20:51 COVID-19 Screening Have you, or household traveled for leisure in last 14 days?: No Had IN PERSON contact w/suspected or confirmed C-19 person: No Procedures Chest Tube Chest Tube 1: Chest tube location: Mid-Axillary Chest Chest tube procedure: Yes betadine prep Anesthesia: 1% Lidocaine w/ Epi Incision made with: #11 blade Post procedure: sutured to skin Tube Drainage: none Post procedure CXR?: Yes Patient tolerated procedure: Yes
--- NOTE | 2020-08-23 22:21 | DI.VRAD_ITS ---
PROCEDURE INFORMATION: Exam: XR Chest, 1 View Exam date and time: 08/23/2020 9:57 PM Age: 50 years old Clinical indication: Other: S/P chest tube TECHNIQUE: Imaging protocol: XR of the chest Views: 1 view. COMPARISON: CT CHEST PE CTA 08/23/2020 7:55 PM FINDINGS: Tubes, catheters and devices: Small bore chest tube now projects over right hemithorax with tip in suprahilar region. Lungs: Scarring and or atelectasis in right lung base. No consolidation. Pleural space: Unremarkable. No pleural effusion. Interval near complete re-expansion of right lung. Heart/Mediastinum: No mediastinal shift. No cardiomegaly. Bones/joints: Degenerative changes. IMPRESSION: Interval near complete re-expansion of right lung. Dictated and Authenticated by: Jose A Oliveira MD. Ordering:TIN Lindquist MD
[2020-08-23] MEDS: Ketorolac 15 MG/ML VIAL IVP (23:54)
[2020-08-24] VITALS (7 sets, daily range): BP systolic 126–150; BP diastolic 70–97; PULSE 82–88; RESP 16–20; TEMP 36–36.9; O2SAT 92–98
[2020-08-24] MEDS: Nicotine 21 MG/24 HR PATCH TD ×2 (01:00→07:39)
[2020-08-24] MEDS: MORPHine 10 MG/ML VIAL IM/IV ×2 (01:00→03:39)
[2020-08-24] MEDS: Normal Saline Flush 10 ML SYR IVP ×7 (01:01→17:22)
[2020-08-24] MEDS: Ketorolac 15 MG/ML VIAL IVP ×3 (06:26→23:43)
[2020-08-24] MEDS: HYDROmorphone 2 MG/ML VIAL 1 MG IVP ×4 (07:38→22:14)
[2020-08-24] MEDS: Montelukast 10 MG TAB PO (07:39)
[2020-08-24] MEDS: Sertraline 50 MG TAB PO (07:39)
--- NOTE | 2020-08-24 07:50 | W.PM.PROGNOT ---
Date of Service Date of service: 08/24/20 Time of Service: 07:50 Assessment and Plan Assessment and plan (1) Pneumothorax, right: Status: Acute Assessment and plan: Chest tube in place. (+) Air Leak observed. Pain moderately controlled at this time. Normal Diet Continue Supportive Care. Subjective Subjective Interval history since last seen: Patient reports continued right sided chest discomfort and tightness. He reports that his back is also sore. Exam Const General: cooperative, healthy appearing and comfortable Orientation: alert and oriented x3 Resp Effort & Inspection: normal respiratory effort, no audible wheezes and cough Objective Last Vital Signs Temp 36.8 C 08/24/20 07:05 Pulse 86 08/24/20 07:05 Resp 20 08/24/20 07:05 BP 149/97 H 08/24/20 07:05 Pulse Ox 98 08/24/20 07:05 Laboratory Results - last 24 hr 08/23/20 08/23/20 08/23/20 18:17 18:17 18:17 WBC 10.12 RBC 4.51 Hgb 15.9 Hct 45.3 MCV 100.4 H MCH 35.3 H MCHC 35.1 RDW 14.2 H Plt Count 354 MPV 9.9 Immature Gran % 0.3 Neutrophils % 48.8 Lymphocytes % 30.4 Monocytes % 14.2 Eosinophils % 5.5 Basophils % 0.8 Nucleated RBC % 0 Absolute Neutrophils 4.93 Absolute Lymphocytes 3.08 Absolute Monocytes 1.44 H Absolute Eosinophils 0.56 Absolute Basophils 0.08 PT 9.8 INR 1.0 APTT 26.8 Sodium 140 Potassium 3.6 Chloride 103 Carbon Dioxide 23.5 Anion Gap 13.5 H BUN 7 Creatinine 0.71 Estimated GFR/1.73 m2 >= 60.00 Glucose 108 H Calcium 8.4 L Magnesium 2.1 Total Bilirubin 0.2 AST 18 ALT 23 Alkaline Phosphatase 58 Troponin I < 0.05 NT-Pro-B Natriuret Pep 81 Total Protein 7.7 Albumin 3.3 L TSH 1.87 08/23/20 21:12 WBC RBC Hgb Hct MCV MCH MCHC RDW Plt Count MPV Immature Gran % Neutrophils % Lymphocytes % Monocytes % Eosinophils % Basophils % Nucleated RBC % Absolute Neutrophils Absolute Lymphocytes Absolute Monocytes Absolute Eosinophils Absolute Basophils PT INR APTT Sodium Potassium Chloride Carbon Dioxide Anion Gap BUN Creatinine Estimated GFR/1.73 m2 Glucose Calcium Magnesium Total Bilirubin AST ALT Alkaline Phosphatase Troponin I Cancelled NT-Pro-B Natriuret Pep Total Protein Albumin TSH
[2020-08-24] MEDS: Lidocaine 1% Multi-Dose 50 ML VIAL 20 ML IJ (09:45)
--- NOTE | 2020-08-24 10:28 | W.PM.PROGNOT ---
Date of Service Date of service: 08/24/20 Time of Service: 10:28 Assessment and Plan Assessment and plan (1) Pneumothorax, right: Status: Acute Assessment and plan: chest tube pulled back about 2 inches as initial placement went accross to the mediastinum. resutured with 3- nylon. will monitor air leak for now Subjective Subjective Interval history since last seen: pain r chest medially and at the insertion site, No shortness of breath.States breathing seems normal Exam Narrative Exam Narrative: Chest tube in place with occasional air leak marlene with cough Resp Auscultation: diminished lung sounds Objective Last Vital Signs Temp 98.2 F 08/24/20 07:05 Pulse 86 08/24/20 07:05 Resp 20 08/24/20 07:05 BP 149/97 H 08/24/20 07:05 Pulse Ox 98 08/24/20 07:05 Laboratory Results - last 24 hr 08/23/20 08/23/20 08/23/20 18:17 18:17 18:17 WBC 10.12 RBC 4.51 Hgb 15.9 Hct 45.3 MCV 100.4 H MCH 35.3 H MCHC 35.1 RDW 14.2 H Plt Count 354 MPV 9.9 Immature Gran % 0.3 Neutrophils % 48.8 Lymphocytes % 30.4 Monocytes % 14.2 Eosinophils % 5.5 Basophils % 0.8 Nucleated RBC % 0 Absolute Neutrophils 4.93 Absolute Lymphocytes 3.08 Absolute Monocytes 1.44 H Absolute Eosinophils 0.56 Absolute Basophils 0.08 PT 9.8 INR 1.0 APTT 26.8 Sodium 140 Potassium 3.6 Chloride 103 Carbon Dioxide 23.5 Anion Gap 13.5 H BUN 7 Creatinine 0.71 Estimated GFR/1.73 m2 >= 60.00 Glucose 108 H Calcium 8.4 L Magnesium 2.1 Total Bilirubin 0.2 AST 18 ALT 23 Alkaline Phosphatase 58 Troponin I < 0.05 NT-Pro-B Natriuret Pep 81 Total Protein 7.7 Albumin 3.3 L TSH 1.87 08/23/20 21:12 WBC RBC Hgb Hct MCV MCH MCHC RDW Plt Count MPV Immature Gran % Neutrophils % Lymphocytes % Monocytes % Eosinophils % Basophils % Nucleated RBC % Absolute Neutrophils Absolute Lymphocytes Absolute Monocytes Absolute Eosinophils Absolute Basophils PT INR APTT Sodium Potassium Chloride Carbon Dioxide Anion Gap BUN Creatinine Estimated GFR/1.73 m2 Glucose Calcium Magnesium Total Bilirubin AST ALT Alkaline Phosphatase Troponin I Cancelled NT-Pro-B Natriuret Pep Total Protein Albumin TSH
--- NOTE | 2020-08-24 13:00 | INITIAL_ITS ---
- If Service Date Differs Date of service: 08/24/20 Time of Service: 13:00 Care Management Initial Assess REASON FOR HOSPITALIZATION:: Pneumothorax PAST MEDICAL HISTORY/PAST SURGICAL HISTORY:: Medical History (Updated 08/23/20 @ 22:26 by BROOKE Bach). COPD (chronic obstructive pulmonary disease). Depression. Pneumothorax, right. Surgical History . S/P arthroscopic knee surgery PREVIOUS FUNCTIONAL STATUS/SOCIAL/FAMILY SUPPORTS:: Broderick is currently without a residence. He stated that he stays with different people for various lengths of time. He has 6 siblings, 4 of them brothers, and he often stays with one of them. He does receive food stamps, but otherwise he does not receive any community services. He shared that he has hired an document review attorney to help him get disability. Broderick states that he has been working with Tarsha Verduzco and Raghavendra Arriaga in the community and feels well connected. CURRENT FUNCTIONAL STATUS:: Broderick was sitting up in bed when CM met with him. He was pleasant and engaged readily with CM. Broderick shared how he acquired the pneumothorax and the fact that he waited 2 days to seek help. He stated that he carries an 80 lb back pack with all of his belongings when he moves from one house to another and that may have contributed to it. When he fell, it was around 6am and dark and slippery. Broderick is in need of many services such as a residence and income but he has been connected to community resources and states he knows what he needs to do. ADVANCE DIRECTIVES:: not interested at this time Has patient been provided with info about the portal/API?: Yes Did the patient sign up for the portal?: No (homeless) CODE STATUS:: Full Code INSURANCE COVERAGE / FINANCIAL ISSUES:: Medicaid CURRENT HOME/COMMUNITY SERVICES/EQUIPMENT:: [facility] PRIMARY CARE PHYSICIAN:: Lionel Ruggiero POTENTIAL DISCHARGE NEEDS:: Follow up with PCP and discharge plan of care. Broderick has many social deficits such as homelessness and a lack of income but is actively working on these issues with community resource staff inclusing Amanda Verduzco. PATIENT/FAMILY EDUCATION NEEDS:: Discharge plan, limitations, follow up plan, Ask Me Three TRANSPORTATION:: likely via [facility] PLAN:: Broderick will likely be discharged home either to his mother's home or a friend's house. Anticipate he will transport vis [facility] and follow up with his PCP. CM will continue to support Broderick and his discharge planning needs and concerns.
--- NOTE | 2020-08-24 14:46 | CHAPLAIN ---
Broderick was sitting on the edge of his bed when I visited. I introduced myself and explained my role. Broderick said he is feeling better, and told me that he's from here and there. He's in touch with friends by phone.
--- NOTE | 2020-08-24 15:31 | PHA.REVIEW ---
Pharmacy Admission Review - Admission Clinical Review (Last Updated 08/23/20 @ 22:23 by Vikash Canseco MD) Pneumothorax, right (Acute) No Known Allergies Allergy (Unverified 08/14/19 23:34) Height 5 ft 7 in Weight 77.111 kg - Renal Dosing Renal Dosing: BUN 7 mg/dL (7-18) 08/23/20 18:17 Creatinine 0.71 mg/dL (0.70-1.30) 08/23/20 18:17 Medications needing adjustments: Reviewed (Crcl ~105 mL/min current meds okay.) - Anticoagulation Anticoagulation: Hgb 15.9 g/dL (13.5-17.5) 08/23/20 18:17 Hct 45.3 % (40.0-50.0) 08/23/20 18:17 Plt Count 354 10^3/uL (130-400) 08/23/20 18:17 INR 1.0 (0.9-1.1) 08/23/20 18:17 Creatinine 0.71 mg/dL (0.70-1.30) 08/23/20 18:17 DVT Prohphylaxis: Reviewed (SCDs per provider) Therapeutic Anticoagulation: N/A - Opiate Usage Evaluate Pain Scale/Pains Meds: Intervened Scheduled Bowel Reg ordered if on Opiates?: No (will mention to provider) - Relevant Labs Sodium 140 mmol/L (136-145) 08/23/20 18:17 Potassium 3.6 mmol/L (3.5-5.1) 08/23/20 18:17 Chloride 103 mmol/L (98-107) 08/23/20 18:17 Magnesium 2.1 mg/dL (1.8-2.4) 08/23/20 18:17 Electrolytes, C-Reactive P, ESR: Reviewed - DM Control DM Control: Glucose 108 mg/dL (74-106) H 08/23/20 18:17 Insulin Dosing: N/A (BG mildly elevated) - Heart Failure/WI Heart Failure/WI: Troponin I Cancelled 08/23/20 21:12 NT-Pro-B Natriuret Pep 81 pg/mL (<300) 08/23/20 18:17 EF%, SHAUN's, B-Blockers, Diuretics: Reviewed - BP Control BP Control: Blood Pressure 149/97 Blood Pressure 149/97 If elevated: Reviewed (BP elevated so far today, pt not on any BP meds at home.) - Qtc Review If Elevated: N/A (QTc 448 on admission) - IV to PO Switch IV Medications: Reviewed - Home Meds Home Med List reviewed: Reviewed (cetirizine, Dulera (has Symbicort subbed for this), fluticasone) - Current meds Current Medication Order Review: Intervened (Discontinued duplicate med orders and DI meds as they had already been given.) - Comments Comments/Follow Ups: Watch BP, labs, and for med changes (need of BM meds).
[2020-08-24] MEDS: Docusate Sodium 100 MG CAP PO (16:52)
[2020-08-24] MEDS: Budesonide/Formoterol 80/4.5 6.9 GM 60 PUFF INH IH (19:44)
[2020-08-24 19:58] LABS: COVID-19 RT-PCR UVMMC Result Negative (Negative)
[2020-08-25] MEDS: Nicotine 21 MG/24 HR PATCH TD ×2 (01:29→08:28)
[2020-08-25] MEDS: HYDROmorphone 2 MG/ML VIAL 1 MG IVP ×2 (03:05→23:15)
[2020-08-25] MEDS: Normal Saline Flush 10 ML SYR IVP ×3 (03:06→23:16)
[2020-08-25 03:14] VITALS: BP 157/100; PULSE 90; RESP 19; TEMP 37.4; O2SAT 94
[2020-08-25] MEDS: Ketorolac 15 MG/ML VIAL IVP ×3 (05:47→17:14)
[2020-08-25 07:31] VITALS: BP 141/96; PULSE 85; RESP 17; TEMP 37.4; O2SAT 94
--- NOTE | 2020-08-25 07:43 | DI.RAD_ITS ---
EXAM: XR PORTABLE CHEST AP CLINICAL HISTORY: follow up pneumothorax TECHNIQUE: 2D digital imaging was performed. COMPARISON: CR,XR XR PORTABLE CHEST AP POST LINE from 08/23/2020 FINDINGS: LUNGS: Clear. No pneumothorax is visible. Stable position right chest catheter. HEART: Normal. MEDIASTINUM: Normal. BONES: Unremarkable. IMPRESSION: No visible pneumothorax. DATA REPOSITORY: RADIATION DOSE DELIVERED:
[2020-08-25] MEDS: Budesonide/Formoterol 80/4.5 6.9 GM 60 PUFF INH IH ×2 (07:50→19:31)
--- NOTE | 2020-08-25 08:09 | DI.VRAD_ITS ---
Addendum created by Bree Rizzo MD on 08/25/2020 8:26:48 AM EST: THIS REPORT CONTAINS FINDINGS THAT MAY BE CRITICAL TO PATIENT CARE. The findings were verbally communicated via telephone conference with Vikash Canseco at 8:26 AM EST on 08/25/2020. The findings were acknowledged and understood. We discussed the fact that the difference is probably insignificant Initial report created on 08/25/2020 8:09:26 AM EST: PROCEDURE INFORMATION: Exam: XR Chest, 1 View Exam date and time: 08/25/2020 7:32 AM Age: 50 years old Clinical indication: Other: Follow up pneumothorax TECHNIQUE: Imaging protocol: XR of the chest Views: 1 view. COMPARISON: CR XR PORTABLE CHEST AP POST LINE 08/23/2020 9:59 PM FINDINGS: Lungs: Pigtail catheter terminates in the right upper lobe. It is stable.. Pleural space: Small pneumothorax is seen in the right apex. The pneumothorax measures over 2 cm in width. It has increased in size compared to the prior study.. Heart/Mediastinum: Unremarkable. No cardiomegaly. Bones/joints: Unremarkable. IMPRESSION: 1. Pigtail catheter terminates in the right upper lobe. It is stable.. 2. Small pneumothorax is seen in the right apex. The pneumothorax measures over 2 cm in width. It has increased in size compared to the prior study.. Dictated and Authenticated by: Bree Rizzo MD. Ordering:REAGAN Suh MD
[2020-08-25] MEDS: Docusate Sodium 100 MG CAP PO (08:29)
[2020-08-25] MEDS: Sertraline 50 MG TAB PO (08:29)
[2020-08-25] MEDS: Montelukast 10 MG TAB PO (08:29)
--- NOTE | 2020-08-25 09:37 | PGE_ITS ---
Date of Service Date of service: 08/25/20 Time of Service: 09:37 Assessment and Plan Assessment and plan (1) Pneumothorax, right: Status: Acute Assessment and plan: cxr raises the question of slight interval increase in size but no air leak in the tube today. Will repeat the cxr later today with the tube on water seal. If increased size or air leak will place larger tube un valentin iv sedation Subjective Subjective Patient reports: no new complaints Exam Resp Effort & Inspection: normal respiratory effort Auscultation: diminished lung sounds Objective Last Vital Signs Temp 99.3 F 08/25/20 07:31 Pulse 85 08/25/20 07:31 Resp 17 08/25/20 07:31 BP 141/96 H 08/25/20 07:31 Pulse Ox 94 08/25/20 07:31 Laboratory Results - last 24 hr 08/23/20 23:05 SARS-CoV-2 (PCR) Negative Nasopharyn COVID-19 PCR Not Applicable Ref Test Perform Site [facility] lab
[2020-08-25 11:09] VITALS: BP 139/96; PULSE 93; RESP 18; TEMP 37.6; O2SAT 92
--- NOTE | 2020-08-25 12:04 | PDOC.CMPRO ---
- If Service Date Differs Date of service: 08/25/20 Time of Service: 12:04 Care Management Progress Note S/O: Per radiology report, the pneumothorax has increased in size since prior study. A chest x-ray will be repeated later on today and if the pneumothorax continues to increase in size, the plan is to place a larger tube under iv sedation at that time, according to Dr. Canseco. Broderick reports the chest x-ray is scheduled to be repeated around 4:00 pm this afternoon. Broderick states he is looking forward to discharging from the hospital as he has begun the application process for SSDI and has an appointment on 08/30/20 with a doctor in [place] for certification of his disability based on a COPD diagnosis. Broderick is hopeful he will be able to obtain his own apartment once he has SSDI. For the time being, he is staying with friends and family. When CM inquires if he contacted 1 or economic services for a [employer] voucher, Broderick says he did but the closest available motel room is in [place] and his doctors, family, and friends are all in the [facility] area, so he turned down the voucher as he prefers to remain locally. CM will continue to follow. A: Broderick is a 50 year old male admitted to [facility] on 08/23/20 for a right pneumothorax. P: Plan remains for him to discharge home to either his mother's home or a friend's house when medically cleared by provider. He will transport via [facility] coordinated by CM and will follow up with his PCP, community providers, and discharge plan of care as directed. CM will continue to support Broderick and discharge planning needs.
[2020-08-25] MEDS: Normal Saline 50 ML 200 ML (12:10)
--- NOTE | 2020-08-25 15:30 | DI.RAD_ITS ---
EXAM: XR PORTABLE CHEST AP CLINICAL HISTORY: f/u pneumothorax TECHNIQUE: 2D digital imaging was performed. COMPARISON: CR,XR XR PORTABLE CHEST AP from 08/25/2020 7:30 a.m. FINDINGS: LUNGS: Clear. No change in position the right chest catheter. No pneumothorax is visible. HEART: Normal. MEDIASTINUM: Normal. BONES: Unremarkable. IMPRESSION: No pneumothorax is visible. DATA REPOSITORY: RADIATION DOSE DELIVERED:
[2020-08-25 15:51] VITALS: BP 160/90; PULSE 88; RESP 18; TEMP 37; O2SAT 99
--- NOTE | 2020-08-25 16:22 | DI.VRAD_ITS ---
PROCEDURE INFORMATION: Exam: XR Chest, 1 View Exam date and time: 08/25/2020 9:45 AM Age: 50 years old Clinical indication: Condition or disease; Other: Pneumothorax TECHNIQUE: Imaging protocol: XR of the chest Views: 1 view. COMPARISON: XR PORTABLE CHEST AP 08/25/2020 7:30 AM FINDINGS: Lungs: The pigtail catheter terminates in the right upper lobe. No definite pneumothorax identified. . Pleural space: See Lungs finding. Heart/Mediastinum: Unremarkable. No cardiomegaly. Bones/joints: Unremarkable. IMPRESSION: The pigtail catheter terminates in the right upper lobe. No definite pneumothorax identified Dictated and Authenticated by: Bree Rizzo MD. Ordering:REAGAN Suh MD
[2020-08-25 19:15] VITALS: BP 148/87; PULSE 83; RESP 18; TEMP 36.8; O2SAT 96
[2020-08-25 23:13] VITALS: BP 138/87; PULSE 76; RESP 18; TEMP 36.7; O2SAT 96
[2020-08-26 03:41] VITALS: BP 129/89; PULSE 81; RESP 17; TEMP 36.8; O2SAT 96
[2020-08-26] MEDS: HYDROmorphone 2 MG/ML VIAL 1 MG IVP (05:22)
[2020-08-26 07:48] VITALS: BP 112/75; PULSE 96; RESP 18; TEMP 37; O2SAT 96
--- NOTE | 2020-08-26 08:18 | W.PM.PROGNOT ---
Date of Service Date of service: 08/26/20 Time of Service: 08:19 Assessment and Plan Assessment and plan (1) Pneumothorax, right: Status: Acute Assessment and plan: no air leak today. chest tube pulled pt will be discharged Subjective Subjective Patient reports: pain is less Exam Resp Effort & Inspection: normal respiratory effort Auscultation: diminished lung sounds Objective Last Vital Signs Temp 98.6 F 08/26/20 07:48 Pulse 96 H 08/26/20 07:48 Resp 18 08/26/20 07:48 BP 112/75 08/26/20 07:48 Pulse Ox 96 08/26/20 07:48
[2020-08-26] MEDS: Nicotine 21 MG/24 HR PATCH TD (08:20)
[2020-08-26] MEDS: Sertraline 50 MG TAB PO (08:21)
[2020-08-26] MEDS: Docusate Sodium 100 MG CAP PO (08:21)
[2020-08-26] MEDS: Montelukast 10 MG TAB PO (08:21)
--- NOTE | 2020-08-26 08:22 | W.PM.DS.N ---
Date of service: 08/26/20 Time of Service: 08:22 DS: Diagnosis Discharge Diagnosis (1) Pneumothorax, right: Status: Acute Discharge Plan Disposition Patient Disposition: HOME Condition: Stable Discharge Details Reason For Visit: RIGHT PNEUMOTHORAX Admit Date/Time: 08/23/20 22:38 Admit Provider: Vikash Canseco Attending Provider: Viksah Canseco Primary Care Provider: Lionel Ruggiero Hospital Course Hospital Course: This 50-year-old gentleman fell 2 days prior to admission striking his right lateral chest. He was admitted to the emergency room and found to have a 50% right pneumothorax on chest CT. He also had a head CT which was normal. His physical at the time showed decreased breath sounds on the right more than the left his past medical history was significant for COPD. A pigtail chest tube catheter was placed on the right in the emergency room. He had an air leak initially which lasted for little over 24 hours. Chest x-ray done on the ninth in the morning raise a question of an increased size of apical pneumothorax although I did not see the apical pneumo on the x-ray. This was supposed to be medial. The chest tube was placed to waterseal and 8 hours later another chest x-ray was done showing no pneumothorax. He remained on waterseal during the night following morning he still demonstrated no air leak chest tube back on suction showed no air in the chest tube was discontinued. He is discharged home at this time. Home Meds and New Rx's Prescriptions: Continued cetirizine 10 mg Tablet 10 mg PO DAILY RF: 0 montelukast 10 mg Tablet 10 mg PO DAILY RF: 0 fluticasone propionate [Flonase Allergy Relief] 50 mcg/actuation [place],Suspension 1 spray INTRANASAL BID RF: 0 sertraline 50 mg Tablet 50 mg PO DAILY RF: 0 Dulera 200-5 mcg/actuation Hfa Aerosol Inhaler 2 puff INHALATION BID RF: 0 albuterol sulfate 90 mcg/actuation aerosol powdr breath activated 2 inh IH Q4H PRN (Reason: shortness of breath or wheezing) Qty: 1 RF: 0 albuterol sulfate 2.5 mg /3 mL (0.083 %) solution for nebulization 2.5 mg IH Q4H PRN (Reason: shortness of breath or wheezing) Qty: 75 RF: 0 Discharge Instructions Stand Alone Forms: Nursing Discharge Form Activity:: Activity as Tolerated Equipment/Supplies:: No Equipment Needed Diet:: As Tolerated Discharge Data Discharge Date/Time-TO BE ENTERED AT DEPARTURE: 08/26/20 08:33 DS: Summary Summary Time spent discussing smoking cessation with patient: 3 to 10 minutes Status at Discharge Functional status at discharge: independent ambulation Overall status at discharge: patient is back to baseline Mental Status: mental status grossly normal Speech and Movement: speech and movement normal Mood: congruent mood Affect: normal affect Time Spent with Patient Specific discharge activities: Shower starting tommorrw evening and remove the bandage tues am. replace a bandaid once a day Quality: VTE Deep Vein Thrombosis/Pulmonary Embolism Present on Admission: No Exam Psych Mental Status: mental status grossly normal Speech and Movement: speech and movement normal Mood: congruent mood Affect: normal affect DS: Data Vitals/I&O Vitals and I&O: Vital Signs Temperature 98.6 F 08/26/20 07:48 Temperature Source Temporal Artery Scan 08/26/20 07:48 Pulse 96 H 08/26/20 07:48 Pulse Rhythm Regular 08/26/20 05:49 Pulse 107 H 08/23/20 22:50 Respiratory Rate 18 08/26/20 07:48 Respiratory Effort Non-Labored 08/26/20 05:49 Respiratory Depth Normal 08/26/20 05:49 Respiratory Pattern Normal 08/26/20 05:49 Blood Pressure 112/75 08/26/20 07:48 Blood Pressure Mean 98 08/23/20 20:50 Blood Pressure Position Sitting 08/23/20 17:51 Pulse Oximetry 96 08/26/20 07:48 Oxygen Delivery Method Room Air 08/26/20 07:48 Oxygen Flow Rate 0 08/26/20 07:48 Pain Level 0 08/26/20 07:48 Comment 08/25/20 15:51 Intake & Output 08/25/20 08/25/20 08/26/20 11:59 23:59 11:59 Intake Total 610 / 610 Output Total 1000 / 1900 900 / 1900 900 / 900 Balance -390 / -1290 -900 / -1290 -880 / -880 Intake: IV Oral 590 / 590 Output: Urine 1000 / 1900 900 / 1900 900 / 900 Other: Urine Color Light Crystal Straw Light Crystal Urine Appearance Clear Clear Clear Urine Odor Normal Normal Voiding Methods Toilet Toilet Toilet PFSH Medical History COPD (chronic obstructive pulmonary disease) Depression Pneumothorax, right Surgical History S/P arthroscopic knee surgery Social History Smoking/Tobacco Use Status: Current every day Tobacco Type: cigarettes Smoking risk assessment performed?: Yes Alcohol Intake: current Alcohol Intake frequency: 3 or more drinks per day Alcohol type: hard liquor Drug use: Never Substance use type: former substance user Do you feel safe at home: Yes Do you feel safe in your relationship?: Yes
[2020-08-26] MEDS: Budesonide/Formoterol 80/4.5 6.9 GM 60 PUFF INH IH (08:27)
--- NOTE | 2020-08-26 09:20 | PDOC.CMDIS ---
- If Service Date Differs Date of service: 08/26/20 Time of Service: 09:20 LACE Index Scoring Tool - Questions: Length of Stay (in days): 3 Acuity (Admit via E.D.?): Yes Comorbidities: Chronic Pulmonary Disease E.D. Visits: 2 - Answers: Total Score: 10 Risk of Readmission: High Risk Care Management Discharge Reason for Hospitalization: Pneumothorax Discharge Plan: Broderick is being discharged to his brother's home. He will follow up with his PCP, community providers, and discharge plan of care as directed. Broderick is driven home via private vehicle with family. Patient/Family Education Needs: Discharge instructions, limitations, follow up plan of care including Ask Me Three and self management.
== END 2020-08-26 10:18 | disposition home or self-care (01) | DRG 201 ==
LOC: ER 22:26 → MS 23:28
PROVIDERS: Admitting Provider Surgery; Emergency Provider Physician Assistant; PCP Nurse Practitioner Family; Visit Provider Surgery
DX: S27.0XXA Traumatic pneumothorax, initial encounter (principal); W19.XXXA Unspecified fall, initial encounter; J44.9 Chronic obstructive pulmonary disease, unspecified; F32.9 Major depressive disorder, single episode, unspecified; F17.210 Nicotine dependence, cigarettes, uncomplicated
CPT/HCPCS: 32556; 32551; 36415; 71045; 71275; 80053; 93005; 94640; 96374; 96376; 99222; 99291; U0003; 70450; 83735; 83880; 84443; 84484; 85025; 85610; 85730; 93010; J1885; J2270; J3490

== ENCOUNTER 2020-10-24 15:00 | Outpatient (CLI) | payer MEDICAID, SELFPAY ==
--- NOTE | 2020-10-24 14:45 | DI.RAD_ITS ---
EXAM: XR SHOULDER RT COMPLETE 2+V CLINICAL HISTORY: right shoulder pain. TECHNIQUE: 2D digital imaging was performed. COMPARISON: CR,XR XR PORTABLE CHEST AP from 08/25/2020 FINDINGS: BONES: No acute fracture is present. No bony destructive lesion is seen. JOINTS: No dislocation present. Degenerative changes are seen at the acromioclavicular and glenohumer al joints. SOFT TISSUE: There is a calcification seen adjacent to the greater tuberosity most suggestive of calc ific tendinitis. IMPRESSION: Degenerative changes about the right shoulder as described. DATA REPOSITORY: RADIATION DOSE DELIVERED:
== END 2020-10-24 15:01 | disposition home or self-care (01) ==
LOC: DIORS 15:00
PROVIDERS: PCP Nurse Practitioner Family; Referring Provider Nurse Practitioner Family; Visit Provider Student in an Organized Health Care Education/Training Program
DX: M19.011 Primary osteoarthritis, right shoulder (principal)
CPT/HCPCS: 73030

== ENCOUNTER 2020-11-04 05:10 | Emergency (ER) | payer MEDICAID, SELFPAY ==
[2020-11-04] VITALS (25 sets, daily range): BP systolic 101–133; BP diastolic 68–95; PULSE 92–127; RESP 1–32; TEMP 35.6–36.7; O2SAT 93–100
--- NOTE | 2020-11-04 05:13 | ED.GENADUL_ITS ---
Discharge Plan Disposition Patient Disposition: HOME Condition: Improving Discharge Details Clinical Impression: Meralgia paresthetica of left side, COPD (chronic obstructive pulmonary disease), Alcohol abuse with uncomplicated intoxication Primary Care Provider: Lionel Ruggiero ED Provider: Miguelangel Walker Gaastra Meds and New Rx's Prescriptions: No Action cetirizine 10 mg Tablet 10 mg PO DAILY RF: 0 montelukast 10 mg Tablet 10 mg PO DAILY RF: 0 fluticasone propionate [Flonase Allergy Relief] 50 mcg/actuation [place],Suspension 1 spray INTRANASAL BID RF: 0 sertraline 50 mg Tablet 50 mg PO DAILY RF: 0 Dulera 200-5 mcg/actuation Hfa Aerosol Inhaler 2 puff INHALATION BID RF: 0 albuterol sulfate 90 mcg/actuation aerosol powdr breath activated 2 inh IH Q4H PRN (Reason: shortness of breath or wheezing) Qty: 1 RF: 0 albuterol sulfate 2.5 mg /3 mL (0.083 %) solution for nebulization 2.5 mg IH Q4H PRN (Reason: shortness of breath or wheezing) Qty: 75 RF: 0 Discharge Instructions Instructions: COPD (Chronic Obstructive Pulmonary Disease) (ED), Abuse of Alcohol (ED), Meralgia Paresthetica (ED) Additional Instructions: Your leg pain and numbness is related to a nerve problem and is called neuralgia paresthetica. You should take ibuprofen 400 to 600 mg 3 times a day with food. You will need follow-up with primary care for further management. You should take other medications especially your inhalers as previously prescribed. You should limit the amount of alcohol consumption. Return to ED if problems. Referrals: Lionel Ruggiero, [employer] SUPERVISOR [Primary Care Provider] - Medical Decision Making Patient is apparently here for his left thigh pain that he is convinced is due to something wrong with his femur. He has a very difficult historian and give vague answers and unreliable timeline in regards to those answers. Is noted to be tachypneic and tachycardic. He is not febrile. He has history of COPD continues to smoke and has diffuse wheezing throughout. EKG is sinus tachycardia otherwise unremarkable. He denies chest pain. Unclear whether his shortness of breath is baseline or worse than usual. Left lower extremity with some tenderness in the greater troches region and he is complaining of lateral sided pain chest pain possible trochanteric bursitis. Also complaining of numbness lateral thigh nerve problem. However, due to his unreliable history and abnormal vital signs we will proceed with laboratory testing, chest x-ray, femur x-ray, Covid testing due to report no inconsistent regarding fever and cough. Patient's chest x-ray is unremarkable. Femur film negative. Laboratory studies remarkably good with no significant abnormalities other than an alcohol level of almost 260 and a positive D-dimer. Covid testing is negative. Patient reports breathing better after DuoNeb treatment. Continues to plane of discomfort in his thigh is given ketorolac. Suspect that his problem is related to the lateral femoral cutaneous nerve given the pain and numbness he is describing and its distribution. At this point tachycardia is greatly improved. Will obtain CTA to evaluate for PE but suspect shortness of breath is related to his COPD more than anything else. CTA is negative except for severe COPD changes. Patient has had breakfast. He is doing better in terms of breathing and heart rate is now below 100. Despite alcohol level patient is clinically sober with normal speech, gait and has now been here for 3 hours. Feel he is safe for discharge home. Follow-up with primary care in regards to his meralgia paresthetica. Medical Records Medical records reviewed: Yes I reviewed the patient's medical records. Lab Data Lab results reviewed: Yes I reviewed the patient's lab results. ECG Data Attestation: I personally reviewed and interpreted this ECG (s) as follows: Interpretation: see EKG HPI General Mode of arrival: ambulatory . Date/Time Provider Initiated Documentation: 11/04/20 05:12 . Limitations to Documentation: no limitations . Information obtained by: patient, RN notes reviewed and old records reviewed . HPI Narrative: Patient presents to ED with complaints of left femur pain. Patient is a very poor historian. He also complains of shortness of breath, but then states she has been short of breath for 10 years. Unclear whether he is more short of breath than usual or not. Reports left lateral thigh pain and numbness for 3 w eeks. Is ambulatory on his leg despite complaint of pain. He is convinced it is femur pain he must have x-rays. He denies any injury. He states the leg feels numb but only on the lateral side where he is also having pain. He had originally said he was having fevers and then recanted on further questioning. He has a cough but is unclear whether it is chronic or new. He denies headache, runny nose, sore throat, chest pain, abdominal pain, vomiting, diarrhea. He does have history of COPD and continues to smoke. Is intermittently homeless depending on whether he is staying with his mother or not. He has a history of alcohol abuse. He has not had Covid vaccination. Related Data Home Medications Medication Instructions Recorded Confirmed albuterol sulfate 2 inh IH Q4H PRN #1 each 09/24/18 11/04/20 Dulera 2 puff INHALATION BID 05/02/19 11/04/20 cetirizine 10 mg PO DAILY 05/02/19 11/04/20 fluticasone propionate [Flonase 1 spray INTRANASAL BID 05/02/19 11/04/20 Allergy Relief] montelukast 10 mg PO DAILY 05/02/19 11/04/20 sertraline 50 mg PO DAILY 05/02/19 11/04/20 albuterol sulfate 2.5 mg IH Q4H PRN #75 ml 06/03/19 11/04/20 Previous Rx's Medication Instructions Recorded albuterol sulfate 2 inh IH Q4H PRN #1 each 09/24/18 albuterol sulfate 2.5 mg IH Q4H PRN #75 ml 06/03/19 Allergies Allergy/AdvReac Type Severity Reaction Status Date / Time No Known Allergies Allergy Unverified 11/04/20 05:19 General WANDA: 3 Review of Systems Narrative: Patient is an unreliable historian, review systems very difficult to ascertain. [facility] Medical History (Updated 11/04/20 @ 07:09 by Miguelangel Walker MD) COPD (chronic obstructive pulmonary disease) Depression Pneumothorax, right Surgical History History of fundoplication S/P arthroscopic knee surgery Social History Smoking/Tobacco Use Status: Current every day Tobacco Type: cigarettes Smoking risk assessment performed?: Yes Alcohol Intake: current Alcohol Intake frequency: 3 or more drinks per day Alcohol type: hard liquor Drug use: Never Substance use type: former substance user Current gender identity: male Do you feel safe at home: Yes Do you feel safe in your relationship?: Yes Exam Narrative Exam Narrative: Const: WDWN male in NAD. HEENT: NC/AT. Normal facial exam. Eyes: Normal conjunctiva and sclera. Neck: Supple. Trachea midline. Lungs: Tachypneic but in no distress. Diffuse wheezing throughout. Equal breath sounds bilaterally. Cor: Tachycardia but regular without murmur. Good radial pulses. GI: Soft. NT/ND. No guarding or rebound. Neuro: A+O x 3. Normal speech, mentation. Cranial nerves II - XII grossly intact. No gross motor deficit. States decreased sensation left lateral thigh. Ext: No C/C/E. No calf tenderness. Slight tenderness left greater trochanteric region. Skin: Warm and dry without rash or erythema.
--- NOTE | 2020-11-04 05:15 | RT.EKG_ITS ---
APPROVED REPORT Exam: Resting ECG Patient Location: E HR:116 bpm ECG Measurements Heart Rate 116 AXIS RI 146 P 0 QRSd 102 QRS 44 QT 328 T 29 QTc 457 Conclusion Sinus tachycardia...rate> 99 Normal Christine No STEMI
--- OUTSIDE RECORDS SUMMARY | 2020-11-04 05:23 | XMS_ITS ---
:1970 Author Care Team Providers Name Role Phone [facility] Primary Care Provider [phone] CHAZ VINSON DNP [facility] - C Primary Care Provider [phone] Allergies Code Code System Name Reaction Severity Status Onset NKDA ? Medications Name Status Start Date Stop Date ? ? albuterol sulfate 2.5 mg/3 mL (0.083 %) Active ? Not available solution for nebulization Ambien 5 mg tablet Active ? Not available Take 1 tablet every day by oral route. Anoro Ellipta 62.5 mcg-25 mcg/actuation powder for inhalation Ac tive ? Not available Inhale 1 puff every day by inhalation route for 30 days. cefdinir 300 mg capsule Active ? Not avai lable cetirizine 10 mg tablet Active ? Not avai lable Take 1 tablet every day by oral route. Chantix Continuing Month Box 1 mg tablet Active ? Not available Take 1 tablet twice a day by oral route. Chantix Starting Month Box 0.5 mg (11)-1 mg (42) tablets in dose pack Active ? Not available Take 1 startr pk every day by oral route as directed. Dulera 200 mcg-5 mcg/actuation HFA aerosol inhaler Active ? Not available Inhale 2 puffs twice a day by inhalation route. Flonase Allergy Relief Active ? Not avail able fluticasone propionate 50 mcg/actuation Active ? Not available nasal spray,suspension levofloxacin 750 mg tablet Active ? Not a vailable montelukast 10 mg tablet Active ? Not angelia ilable Take 1 tablet every day by oral route. nicotine (polacrilex) 4 mg gum Completed ? 0 12/09/2019 nicotine 14 mg/24 hr daily transdermal Completed ? 12/09/2019 patch nicotine 21 mg/24 hr daily transdermal Completed ? 12/09/2019 patch nicotine 7 mg/24 hr daily transdermal Completed ? 12/09/2019 patch Nicotrol 10 mg inhalation cartridge Completed ? 12/09/2019 Inhale by inhalation route. prednisone 10 mg tablet Active ? Not avai lable Take 4 tablets every day by oral route for 3 days, then take 3 tablets every day by oral route for 3 days, then take 2 tablets every day by oral route for 3 days, and then take 1 tablet every day by oral route for 3 days. prednisone 20 mg tablet Completed ? 12/09/19 20 ProAir HFA 90 mcg/actuation aerosol inhaler Active ? Not available Inhale 2 puffs every 4 hours by inhalation route. sertraline 50 mg tablet Active ? Not avai lable Take 1 tablet every day by oral route. Spiriva with HandiHaler 18 mcg and inhalation capsules Completed ? 12/09/2019 Inhale 1 capsule every day by inhalation route. Stiolto Respimat 2.5 mcg-2.5 mcg/actuation solution for inhalati on Unknown ? Not available Inhale 2 puffs every day by inhalation route. Problems Name Status Onset Date Source ? Anxiety Active 07/15/2019 ? Tobacco User Active 07/15/2019 ? Reduced Visual Acuity Active 07/15/2019 ? Chronic Obstructive Lung Disease Active 07/15/2019 ? Fatigue Active 07/15/2019 ? Housing Lack Active 07/15/2019 ? Lesion of Skin of Nose Active 07/15/2019 ? Obstructive Sleep Apnea Syndrome Active 01/13/2020 ? REM Sleep Behavior Disorder Active 01/13/2020 ? Procedures Date Name Performed by ? 12/09/2019 CT, Chest, W/o Contrast Xray [facility] [address] [place], [place] [address] (Work Place) Results Lab Results None recorded. Past Encounters 01/13/2020 Chronic Obstructive Lung Disease; REM Sl eep Behavior Disorder; Obstructive Sleep Apnea Syndrome Kanwal Singh MD: [address] [place] [address] [address] , [place] [address], Ph. 12/09/2019 Chronic Obstructive Lung Disease Kanwal Singh MD: [address] [place] [address] [address], [place] [address], Ph. Social History Tobacco Smoking Status Former Smoker (1 PPD) Notes: quit 1 month ago Vaccine List Vaccine Type influenza, injectable, quadrivalent 09/17/2018 pneumococcal polysaccharide PPV23 10/04/2018 Plan of Care Reminders Provider Appointments None ? ? recorded. Lab None ? ? recorded. Referral None ? ? recorded. Procedures None ? ? recorded. Surgeries None ? ? recorded. Imaging None ? ? recorded. Vitals 01/13/2020 03:30PM Office 15 Height Weight BMI Blood Pressure 170.18 cm 88 kg 30.4 kg/m2 122/70 mm[Hg] 12/09/2019 10:45AM Office 15 Height Weight BMI 170.18 cm 83 kg 28.7 kg/m2
--- NOTE | 2020-11-04 05:30 | DI.RAD_ITS ---
EXAM: XR FEMUR LT CLINICAL HISTORY: thigh pain. TECHNIQUE: 2D digital imaging was performed. COMPARISON: No exams were available for comparison FINDINGS: There is no evidence of left hip nor femur fracture. There are small calcifications just above the g reater trochanter which are doubtful for post trauma. Bone density in the femur is normal. No osseo us lesions. No radiopaque foreign body. IMPRESSION: No evidence of left femur fracture. DATA REPOSITORY: RADIATION DOSE DELIVERED:
--- NOTE | 2020-11-04 05:30 | DI.RAD_ITS ---
EXAM: XR PORTABLE CHEST AP CLINICAL HISTORY: SOB. TECHNIQUE: 2D digital imaging was performed. COMPARISON: CR,XR XR PORTABLE CHEST AP from 08/25/2020 FINDINGS: Heart size is normal. The mediastinum is not widened. Lungs are clear. No infiltrates nor obvious pleural effusions. There is no pneumothorax. I note this patient had a pigtailed drainage catheter in the right hemitho rax on the prior study. IMPRESSION: No acute pulmonary findings on this single AP portable view of the chest.No pneumothorax seen. DATA REPOSITORY: RADIATION DOSE DELIVERED:
[2020-11-04 05:54] LABS: Absolute Eosinophil Count 0.13 10^3/uL (0.0-0.7); Absolute Lymphocyte Count 2.54 10^3/uL (1.2-3.4); Absolute Monocyte Count 1.37 10^3/uL (0.1-0.8); Absolute Neutrophil Count 6.63 10^3/uL (1.2-6.7); Basophils % 0.9; Eosinophils % 1.2; HCT 41.1 % (40.0-50.0); HGB 14.2 g/dL (13.5-17.5); Immature Grans % 0.9; Lymphocytes % 23.4; MCH 34.2 pg (27.0-33.0); MCHC 34.5 % (32.0-36.0); MPV 10.1 fL (8.0-11.0); Monocytes % 12.6; Nucleated RBC 0 %; Platelet Count 272 10^3/uL (130-400); RBC 4.15 10^6/uL (4.36-5.78); RDW 13.6 % (11.8-14.1); RDW-SD 49.6 fL; WBC 10.87 10^3/uL (4.4-10.8)
[2020-11-04] MEDS: Albuterol/Ipratropium 3 ML UPD VIAL UPD (06:02)
[2020-11-04 06:04] LABS: Source Nasal/Nares
[2020-11-04 06:07] LABS: ALT 45 U/L (16-63); AST 32 U/L (15-37); Albumin 3.6 g/dL (3.4-5.0); Alkaline Phosphatase 48 U/L (46-116); Anion Gap 10.7 mmol/L (3-11); BUN 9 mg/dL (7-18); Bilirubin, Total 0.2 mg/dL (0.2-1.0); CO2 27.3 mmol/L (21.0-32.0); CREATININE 0.8 mg/dL (0.70-1.30); Calcium 8.6 mg/dL (8.5-10.1); Chloride 105 mmol/L (98-107); ETHANOL BLOOD 258.7 mg/dL (<3); Glucose 120 mg/dL (74-106); Potassium 3.7 mmol/L (3.5-5.1); Sodium 143 mmol/L (136-145); Total Protein 7.8 g/dL (6.4-8.2)
[2020-11-04 06:10] LABS: Magnesium 2.4 mg/dL (1.8-2.4)
[2020-11-04 06:12] LABS: Troponin I < 0.05 ng/mL (<0.06)
--- NOTE | 2020-11-04 06:20 | DI.VRAD_ITS ---
PROCEDURE INFORMATION: Exam: XR Left Femur Exam date and time: 11/04/2020 5:41 AM Age: 50 years old Clinical indication: Left; Patient HX: Thigh pain TECHNIQUE: Imaging protocol: XR Left femur. Views: 2 views. COMPARISON: No relevant prior studies available. FINDINGS: Bones/joints: Unremarkable. No acute fracture. Soft tissues: Unremarkable. IMPRESSION: No acute findings. Dictated and Authenticated by: Jose A Oliveira MD. Ordering:NAHID Means MD
--- NOTE | 2020-11-04 06:20 | DI.VRAD_ITS ---
PROCEDURE INFORMATION: Exam: XR Chest Exam date and time: 11/04/2020 5:54 AM Age: 50 years old Clinical indication: Shortness of breath; Patient HX: SOB TECHNIQUE: Imaging protocol: XR of the chest Views: 1 view. COMPARISON: CR XR PORTABLE CHEST AP 08/25/2020 3:51 PM FINDINGS: Lungs: Unremarkable. No consolidation. Pleural spaces: Unremarkable. No pleural effusion. No pneumothorax. Heart/Mediastinum: Unremarkable. No cardiomegaly. Bones/joints: Degenerative changes. IMPRESSION: No acute findings. Dictated and Authenticated by: Jose A Oliveira MD. Ordering:NAHID Means MD
[2020-11-04 06:30] LABS: D-Dimer 529 ng/mlFEU (<500)
[2020-11-04] MEDS: Ketorolac 30 MG/ML VIAL IVP (06:40)
--- NOTE | 2020-11-04 06:45 | DI.CT_ITS ---
EXAM: CT CHEST PE CTA CLINICAL HISTORY: SOB w positive d-dimer. TECHNIQUE: Imaging Protocol: CT angiography of the chest was performed using pulmonary embolus clyde col. Multi planar reconstructions were performed. CONTRAST MATERIAL: Intravenous: Omnipaque 350 Contrast volume: 100 cc COMPARISON: CT CT CHEST PE CTA from 08/23/2020 FINDINGS: CHEST: LUNGS: Previously present right-sided pneumothorax is no longer seen. The right lung is completely r e-expanded although there are few small bullae in the region of the posterior basal segment of the ri ght lower lobe.No pleural effusions. Emphysematous COPD findings are noted bilaterally. However, th ere are presently no confluent infiltrates. PULMONARY ARTERIES:. there are no intraluminal filling defects to suggest presence of acute pulmonary emboli. MEDIASTINUM: There is no hilar nor mediastinal adenopathy. Visualized thyroid unremarkable. CARDIAC: Heart size is normal. There is no pericardial effusion.Caliber of the thoracic aorta is wit hin normal limits. There is no evidence of shift of the interventricular septum. PARTIALLY VISUALIZED UPPERMOST ABDOMEN: Hepatic steatosis. No adrenal masses. No splenomegaly. OSSEOUS: No significant osseous lesions.No fractures.. IMPRESSION: 1. No evidence of acute pulmonary emboli. No evidence of pulmonary infarction.No pleural effusions. COPD but no confluent infiltrates at this time. 2. The previously present right-sided pneumothorax seen on the CT scan of 08/23/2020 has resolved. T he right lung is completely re-expanded. 3. There is no intrathoracic adenopathy. RADIATION DOSE DELIVERED: LINK-TO-SR Total DLP DATA REPOSITORY: All CT scans at this facility are submitted to the National Radiology Data Registry (NRDR) Dose Index Registry (DIR) with the [employer] (ACR). RADIATION OPTIMIZATION: All CT scans at this facility use at least one of these dose optimization te chniques: automated exposure control; mA and/or kV adjustment per patient size (includes targeted exa ms where dose is matched to clinical indication); or iterative reconstruction.
[2020-11-04 06:48] LABS: COVID-19 PCR Negative (Negative); Influenza A PCR Negative (Negative); Influenza B PCR Negative (Negative); RSV PCR Negative (Negative)
[2020-11-04] MEDS: Omnipaque 350 MG/ML 100 ML BTL IV (07:23)
[2020-11-04] MEDS: Normal Saline - Diluent 50 ML VIAL IV (07:23)
[2020-11-04] MEDS: Normal Saline Flush 10 ML SYR IVP (07:24)
--- NOTE | 2020-11-04 07:55 | DI.VRAD_ITS ---
PROCEDURE INFORMATION: Exam: CT Angiography Chest With Contrast Exam date and time: 11/04/2020 6:57 AM Age: 50 years old Clinical indication: Other: SOB w positive d-dimer TECHNIQUE: Imaging protocol: Computed tomographic angiography of the chest with contrast. 3D rendering (Not supervised by radiologist): MIP and/or 3D reconstructed images were created by the technologist. Radiation optimization: All CT scans at this facility use at least one of these dose optimization techniques: automated exposure control; mA and/or kV adjustment per patient size (includes targeted exams where dose is matched to clinical indication); or iterative reconstruction. Contrast material: OMNIPAQUE 350; Contrast volume: 100 ml; Contrast route: INTRAVENOUS (IV); COMPARISON: CT CHEST PE CTA 08/23/2020 7:55 PM FINDINGS: Pulmonary arteries: No pulmonary emboli. Aorta: Unremarkable. No aortic aneurysm. No aortic dissection. Lungs: Severe upper lobe predominant centrilobular emphysema. Mild bronchial wall thickening. Pleural spaces: No pneumothorax. No pleural effusion. Heart: No cardiomegaly. No pericardial effusion. Lymph nodes: Unremarkable. No enlarged lymph nodes. Bones/joints: No acute fracture. Mild spondylosis. Soft tissues: Unremarkable. IMPRESSION: 1. No pulmonary embolus. 2. COPD with severe upper lobe predominant centrilobular emphysema. Dictated and Authenticated by: Brenden Butts MD. Ordering:NAHID Means MD
== END 2020-11-04 08:12 | disposition home or self-care (01) ==
PROVIDERS: Emergency Provider Emergency Medicine; PCP Nurse Practitioner Family
DX: G57.12 Meralgia paresthetica, left lower limb (principal); J44.9 Chronic obstructive pulmonary disease, unspecified; R00.0 Tachycardia, unspecified; F10.120 Alcohol abuse with intoxication, uncomplicated; Y90.7 Blood alcohol level of 200-239 mg/100 ml; Z20.822 Contact with and (suspected) exposure to COVID-19
CPT/HCPCS: 71275; 73552; 80053; 87637; 93005; 94640; 96374; 99285; 71045; 80320; 83735; 84484; 85025; 85379; 93010; 99284; J1885; J3490; J7620

== ENCOUNTER 2020-11-08 02:09 | Outpatient (CLI) | payer MEDICAID, SELFPAY ==
--- NOTE | 2020-11-08 14:20 | DI.MRI_ITS ---
EXAM: MR UPPER JOINT RT WO CLINICAL HISTORY: Avulsion fracture,IMPINGEMENT SYNDROME,BURSITIS,CALCIFIC TENDINTIIS TECHNIQUE: Multiplanar multisequence MRI of the shoulder was performed. COMPARISON: CR XR SHOULDER RT COMPLETE 2+V from 10/24/[address] CHEST PE CTA from 11/04/2020 CR,XR XR FEMUR LT from 11/04/2020 FINDINGS: MARROW:There is significant intraosseous edema in the anterior aspect of the greater tuberosity. The re is a focus of hypointensity consistent with calcification measuring 11 by 6 millimeters just above the greater tuberosity but slightly posterior to the bone edema and most probably calcific tendiniti s-bursitis. This corresponds to what is seen on recent radiographs. ROTATOR CUFF MECHANISM: AC JOINT/ACROMIUM: There are moderate degenerative changes in the AC joint including degenerative sub articular cysts, some bone edema and small downgoing osteophyte on the clavicular side of the joint. The undersurface of the acromion is flat. Is no under surface acromial hook. There is no os acromi wisam.. There is no evidence of os acromiale. Supraspinatus: Significant signal within the tendon consistent with tendinitis. This is most promine nt just above the greater tuberosity. Infraspinatus: Intact. No evidence of tear nor muscle atrophy. Teres Minor: Intact. No evidence of tear nor muscle atrophy. Subscapularis/anterior cuff: Some tendinitis signal. No full-thickness tear. No atrophy. BICEPS TENDON: Positioned within the intertubercular groove but exhibits some split tearing. Not det ached from the anterosuperior labrum However, there is signal abnormality in the superior labrum posterior to the biceps insertion site. LABRUM: Signal abnormality in the superior labrum posterior to the biceps insertion site consistent w ith element of SLAP tearing. Small focus of increased signal evident in the posterior labrum. Some tearing in the anterior labrum is noted. There is no evidence of paralabral cyst. No degenerative s ubarticular cysts in the osseous glenoid. GLENOHUMERAL JOINT: No prominent joint effusion. No loose intra-articular body. No osteophytes. No evidence of capsular tear. The inferior glenohumeral ligament is intact. CAPSULE: No capsular tears evident. The inferior glenohumeral ligament is intact. QUADRILATERAL SPACE: No evidence of mass in the region of the axillary nerve and dorsal circumflex hu meral vessels. Visualized triceps muscle at this level appears unremarkable. IMPRESSION: 1. There is split tearing of the long head biceps tendon within the intertubercular groove. The tend on does not appear detached from the anterosuperior labrum but there appears to be an element of SLAP -type injury to superior labrum. In addition, there are other foci of of increased signal in the lab rum anteriorly and posteriorly. No paralabral cyst evident. 2. Supraspinatus tendinitis and there is associated calcification measuring 11 x 6 millimeters associ ated with the outer aspect of the tendon above the greater tuberosity. Also prominent subarticular s ignal abnormality in the greater tuberosity which is combination of probable developing degenerative cysts at this level as well as some surrounding bone edema. 3. Moderate degenerative changes evident in the acromioclavicular joint. Minimal degenerative changes in the glenohumeral joint. No osteophytes. DATA REPOSITORY:
== END 2020-11-08 02:29 ==
PROVIDERS: PCP Nurse Practitioner Family; Visit Provider Student in an Organized Health Care Education/Training Program
DX: S46.011A Strain of muscle(s) and tendon(s) of the rotator cuff of right shoulder, initial encounter (principal); M75.51 Bursitis of right shoulder; M75.41 Impingement syndrome of right shoulder; M75.31 Calcific tendinitis of right shoulder
CPT/HCPCS: 73221

== ENCOUNTER 2020-11-20 02:02 | Emergency (ER) | payer MEDICAID, SELFPAY ==
[2020-11-20 02:10] VITALS: BP 113/82; PULSE 115; RESP 12; TEMP 36.7; O2SAT 92
--- NOTE | 2020-11-20 02:24 | W.ED.GENAD ---
Discharge Plan Disposition Patient Disposition: HOME Condition: Stable Discharge Details Clinical Impression: Episode of unresponsiveness Primary Care Provider: Lionel Ruggiero ED Provider: Ajit Montague Home Meds and New Rx's Prescriptions: Continued cetirizine 10 mg Tablet 10 mg PO DAILY RF: 0 montelukast 10 mg Tablet 10 mg PO DAILY RF: 0 fluticasone propionate [Flonase Allergy Relief] 50 mcg/actuation [place],Suspension 1 spray INTRANASAL BID RF: 0 sertraline 50 mg Tablet 50 mg PO DAILY RF: 0 Dulera 200-5 mcg/actuation Hfa Aerosol Inhaler 2 puff INHALATION BID RF: 0 albuterol sulfate 90 mcg/actuation aerosol powdr breath activated 2 inh IH Q4H PRN (Reason: shortness of breath or wheezing) Qty: 1 RF: 0 albuterol sulfate 2.5 mg /3 mL (0.083 %) solution for nebulization 2.5 mg IH Q4H PRN (Reason: shortness of breath or wheezing) Qty: 75 RF: 0 Discharge Instructions Additional Instructions: please try to decrease your alcohol use and follow up with your primary care provider as soon as possible if you feel more ill, have difficulty breathing or chest pain/pressure return to the emergency department immediately for reevaluation Medical Decision Making 50 yo male who drinks heavily everyday per patient comes in with ems after he drank alcohol yesterday and passed out on a couch at a family members house. Apparently his nephew tried to wake him up but took awhile to wake him up so ems was called and when ems arrived he was caox4 without complaints and was brought here. He currently is caox4 with clear speech and normal gait without complaints, denies chest pain, headache, fevers, chills, n/v. He has no focal motor or sensation deficits. He does have right shoulder pain but states this is chronic and unchanged. HAs no signs of trauma on exam. He is noted to have mild tachycardia and oxygen saturation on room air of 92% which could be from his underlying copd. Mild wheezing at the bases bilaterally with no abdominal tenderness. Given the possible syncope will obtain ecg, troponin and cmp and obtain cta to evaluate for possible pe given his hypoxia and tachycardia Pt is stating he doesn't want a workup and that he was just sleeping. He understands that if we miss potential other etiologies described above that he could or become permanently disabled. He is currently clinically sober and has capacity to make his own decisions and is willing to accept the risks of leaving without a workup, he is leaving against my medical advise. He understands that he can return at any time if he changes his mind and that he should follow up with his pcp as soon as possible. Differential Diagnosis Differential Diagnosis: alcohol abuse, syncope, arrythmia HPI General Mode of arrival: EMS. Date/Time Provider Initiated Documentation: 11/20/20 02:18. Limitations to Documentation: no limitations. Information obtained by: patient. History of Present Illness 50 year old M presents to the emergency department with the chief complaint of reportedly unresponsive, Patient started experiencing this hour(s) (1) and it has been now resolved. No relieving factors improve symptom(s), No exacerbating factors reported . Patient notes no other symptoms.. Patient did receive the following treatments prior to arrival, none Related Data Home Medications Medication Instructions Recorded Confirmed albuterol sulfate 2 inh IH Q4H PRN #1 each 09/24/18 11/20/20 Dulera 2 puff INHALATION BID 05/02/19 11/20/20 cetirizine 10 mg PO DAILY 05/02/19 11/20/20 fluticasone propionate [Flonase 1 spray INTRANASAL BID 05/02/19 11/20/20 Allergy Relief] montelukast 10 mg PO DAILY 05/02/19 11/20/20 sertraline 50 mg PO DAILY 05/02/19 11/20/20 albuterol sulfate 2.5 mg IH Q4H PRN #75 ml 06/03/19 11/20/20 Previous Rx's Medication Instructions Recorded albuterol sulfate 2 inh IH Q4H PRN #1 each 09/24/18 albuterol sulfate 2.5 mg IH Q4H PRN #75 ml 06/03/19 Allergies Allergy/AdvReac Type Severity Reaction Status Date / Time No Known Allergies Allergy Unverified 11/20/20 02:18 General Stated Complaint: GenMedical WANDA: 2 Review of Systems All systems reviewed & are unremarkable except as noted in HPI and below Constitutional Constitutional: Denies chills, Denies fever(s) and Denies weakness Cardiovascular Cardiovascular: Denies chest pain and Denies dyspnea Respiratory Respiratory: Denies cough and Denies dyspnea Gastrointestinal Gastrointestinal: Denies abdominal pain, Denies nausea and Denies vomiting Musculoskeletal Musculoskeletal: Denies joint swelling Neurologic Neurologic: Denies weakness [facility] Medical History (Updated 11/20/20 @ 02:32 by Ajit Montague MD) COPD (chronic obstructive pulmonary disease) Depression Pneumothorax, right Surgical History History of fundoplication S/P arthroscopic knee surgery Social History Smoking/Tobacco Use Status: Current every day Tobacco Type: cigarettes Smoking risk assessment performed?: Yes Alcohol Intake: current Alcohol Intake frequency: 3 or more drinks per day Alcohol type: hard liquor Drug use: Occasionally Substance use type: marijuana Current gender identity: male Do you feel safe at home: Yes Do you feel safe in your relationship?: Yes Exam Const General: no acute distress Orientation: alert HENMT Head: normal to inspection Ears: external ears normal General nose exam: external nose normal Mouth: moist mucous membranes Eyes General: appearance normal, both eyes and all related structures Neck Neck: normal visual inspection Resp Effort & Inspection: normal respiratory effort and able to speak in complete sentences Cardio Rate: tachycardic Skin General skin exam: no rashes or lesions noted Neuro General: patient alert and patient oriented x3 Extrem General: normal to inspection Psych Mental Status: mental status grossly normal Course Vital Signs Vital signs: Vital Signs Temperature 36.7 C 11/20/20 02:10 Pulse 115 H 11/20/20 02:10 Respiratory Rate 12 11/20/20 02:10 Blood Pressure 113/82 11/20/20 02:10 Pulse Oximetry 92 11/20/20 02:10 Temperature 36.7 C 11/20/20 02:10 Temperature Source Skin 11/20/20 02:10 Pulse 115 H 11/20/20 02:10 Respiratory Rate 12 11/20/20 02:10 Respiratory Effort Non-Labored 11/20/20 02:19 Blood Pressure 113/82 11/20/20 02:10 Blood Pressure Position Sitting 11/20/20 02:10 Pulse Oximetry 92 11/20/20 02:10 Oxygen Delivery Method Room Air 11/20/20 02:10 Oxygen Flow Rate 0 11/20/20 02:10 Pain Level 6 11/20/20 02:10
--- NOTE | 2020-11-20 02:55 | NUR.NOTE ---
Nursing Note Per Dr. Montague patient okay to walk to brothers house next to [facility] [address] . No one in the family has a vehicle to come pick patient up. Patient called his brother Elder but no answer, left message. Call received from patients son. Patient spoke with him and he will try to get in touch with Elder also .
--- NOTE | 2020-11-20 03:30 | NUR.NOTE ---
Nursing Note:Patients son found someone to drive him to the ER to pick his dad up.
--- NOTE | 2020-11-20 03:30 | NUR.NOTE ---
Nursing Note: Patient alert and oriented, appropriate, gait steady. Has all belongs with him at discharge including cell phone.
== END 2020-11-20 02:30 | disposition home or self-care (01) ==
PROVIDERS: Emergency Provider Emergency Medicine; PCP Nurse Practitioner Family
DX: R41.89 Other symptoms and signs involving cognitive functions and awareness (principal)
CPT/HCPCS: 99283; 99281

== ENCOUNTER 2020-12-02 14:59 | Emergency (ER) | payer MEDICAID, SELFPAY ==
[2020-12-02 15:11] VITALS: BP 124/76; PULSE 101; RESP 18; TEMP 36.6; O2SAT 97
--- NOTE | 2020-12-02 15:28 | ED.GENADUL_ITS ---
Discharge Plan Disposition Patient Disposition: HOME Condition: Stable Discharge Details Clinical Impression: Chronic pain in right shoulder, Cervical muscle strain Primary Care Provider: Lionel Ruggiero ED Provider: Michelle Ag Home Meds and New Rx's Prescriptions: New methocarbamol 500 mg tablet 500 mg PO Q6H PRN (Reason: muscle spasm) Qty: 14 RF: 0 prednisone 20 mg tablet See Rx Instructions .ROUTE .COMPLEX Qty: 12 RF: 0 Continued cetirizine 10 mg Tablet 10 mg PO DAILY RF: 0 montelukast 10 mg Tablet 10 mg PO DAILY RF: 0 fluticasone propionate [Flonase Allergy Relief] 50 mcg/actuation [place],Suspension 1 spray INTRANASAL BID RF: 0 sertraline 50 mg Tablet 50 mg PO DAILY RF: 0 Dulera 200-5 mcg/actuation Hfa Aerosol Inhaler 2 puff INHALATION BID RF: 0 albuterol sulfate 90 mcg/actuation aerosol powdr breath activated 2 inh IH Q4H PRN (Reason: shortness of breath or wheezing) Qty: 1 RF: 0 albuterol sulfate 2.5 mg /3 mL (0.083 %) solution for nebulization 2.5 mg IH Q4H PRN (Reason: shortness of breath or wheezing) Qty: 75 RF: 0 Discharge Instructions Instructions: Cervical Strain (ED), Shoulder Pain (ED) Additional Instructions: Apply ice to the affected area several times daily for 20 minutes at a time. Alternate tylenol and motrin as needed and directed for pain. Your prescriptions have been sent electronically to your pharmacy. Call the pharmacy to make sure your prescriptions are ready before pickup. Take the prescriptions as directed. Follow-up for your pulmonary function test at [facility] and then with orthopedics for your planned shoulder surgery. Return to the emergency department with any worsening or new concerning symptoms. Discharge Data Discharge Date/Time-TO BE ENTERED AT DEPARTURE: 12/02/20 15:56 Discharge Physician: Michelle Ag Medical Decision Making 50-year-old male with a history of chronic right shoulder pain with plan for right shoulder surgery presents with worsening of his right shoulder pain now extending to the right neck noted upon awakening this morning. Patient denies any new injury and is declining any imaging here. He has reproducible pain in his right neck and right shoulder with head movement and movement of the right shoulder. He has no obvious deformity. He is neurovascular intact. Review of patient's chart notes he has a history of alcohol abuse and COPD. Will hold on narcotics at this time as patient is agreeable. Patient is requesting a steroid injection. Will give a dose of oral prednisone here and prescription for prednisone and methocarbamol sent electronically to his pharmacy. He was also given 2 tabs methocarbamol for home. He was advised to follow-up with [facility] for his pulmonary function testing and with orthopedics here for planning his shoulder surgery. HPI General Mode of arrival: ambulatory . Date/Time Provider Initiated Documentation: 12/02/20 15:14 . Limitations to Documentation: no limitations . Information obtained by: patient . HPI Narrative: Patient is a 50-year-old male with a history of chronic right shoulder pain with plan for surgical surgery soon who presents for worsening right shoulder pain with now extension to his right neck that he noted upon awakening this morning. He states he feels like he slept on his shoulder wrong and now has a muscle strain into his right neck. He is having pain with head movement and movement of his right shoulder. He states he has been taking Tylenol and Motrin without relief. Patient states he is planning on having shoulder surgery with orthopedics here but was advised to get a pulmonary function test first for his COPD. He states he has called [facility] for this pulmonary function test but they have yet to call him back to schedule this appointment. He denies any new injury. Related Data Home Medications Medication Instructions Recorded Confirmed albuterol sulfate 2 inh IH Q4H PRN #1 each 09/24/18 12/02/20 Dulera 2 puff INHALATION BID 05/02/19 12/02/20 cetirizine 10 mg PO DAILY 05/02/19 12/02/20 fluticasone propionate [Flonase 1 spray INTRANASAL BID 05/02/19 12/02/20 Allergy Relief] montelukast 10 mg PO DAILY 05/02/19 12/02/20 sertraline 50 mg PO DAILY 05/02/19 12/02/20 albuterol sulfate 2.5 mg IH Q4H PRN #75 ml 06/03/19 12/02/20 methocarbamol 500 mg PO Q6H PRN #14 tab 12/02/20 prednisone See Rx Instructions .ROUTE 12/02/20 .COMPLEX #12 tab Previous Rx's Medication Instructions Recorded albuterol sulfate 2 inh IH Q4H PRN #1 each 09/24/18 albuterol sulfate 2.5 mg IH Q4H PRN #75 ml 06/03/19 methocarbamol 500 mg PO Q6H PRN #14 tab 12/02/20 prednisone See Rx Instructions .ROUTE 12/02/20 .COMPLEX #12 tab Allergies Allergy/AdvReac Type Severity Reaction Status Date / Time No Known Allergies Allergy Unverified 12/02/20 15:13 General Stated Complaint: Orthopedic WANDA: 4 Review of Systems All systems reviewed & are unremarkable except as noted in HPI and below Constitutional Constitutional: Reports as per HPI, Denies chills and Denies fever(s) Eyes Eyes: Denies blurry vision ENT Ears, Nose, Mouth, and Throat: Denies dizziness, Denies sore throat and Denies throat swelling Cardiovascular Cardiovascular: Denies chest pain and Denies dyspnea Respiratory Respiratory: Denies cough and Denies dyspnea Gastrointestinal Gastrointestinal: Denies abdominal pain, Denies diarrhea and Denies vomiting Genitourinary Genitourinary: Denies hematuria and Denies dysuria Musculoskeletal Musculoskeletal: Denies back pain and Denies numbness Comments: R shoulder pain, R sided neck pain Integumentary/Breasts Skin/Breast: Denies lesions and Denies rash Neurologic Neurologic: Denies dizziness, Denies localized weakness and Denies numbness Allergic/Immunologic Allergic/Immunologic: Denies throat swelling REPLACED BY [facility] Medical History (Updated 12/02/20 @ 15:40 by Michelle Ag DO) COPD (chronic obstructive pulmonary disease) Depression Pneumothorax, right Surgical History History of fundoplication S/P arthroscopic knee surgery Social History Smoking/Tobacco Use Status: Current every day Tobacco Type: cigarettes Smoking risk assessment performed?: Yes Alcohol Intake: current Alcohol Intake frequency: 3 or more drinks per day Alcohol type: hard liquor Drug use: Current Sobriety Substance use type: marijuana Current gender identity: male Do you feel safe at home: Yes Do you feel safe in your relationship?: Yes Exam Const General: cooperative, healthy appearing and no acute distress HENHI Head: normal to inspection Mouth: oral mucosae normal Eyes General: appearance normal, both eyes and all related structures Neck Neck: normal visual inspection Resp Effort & Inspection: normal respiratory effort and able to speak in complete sentences Cardio Rate: regular rate Skin General skin exam: no rashes or lesions noted Neuro General: patient alert, patient awake and patient oriented x3 Motor: muscle tone normal throughout Extrem Other: Tenderness palpation to right anterior, lateral and posterior shoulder. Tenderness extending into the right trapezius and right paraspinal cervical region. There is pain in right shoulder and right trapezius that is reproducible with right head rotation and side bending in addition to movement of his right shoulder He has limitation of abduction, extension, internal/external rotation at right shoulder. Muscle strength bilateral upper extremities 5/5. Bilateral radial and ulnar pulses intact. Good handgrip bilaterally. No obvious deformity noted Psych Appearance: grossly normal Affect: normal affect Course Vital Signs Vital signs: Vital Signs Temperature 97.9 F 12/02/20 15:11 Pulse 101 H 12/02/20 15:11 Respiratory Rate 18 12/02/20 15:11 Blood Pressure 124/76 12/02/20 15:11 Pulse Oximetry 97 12/02/20 15:11 Temperature 97.9 F 12/02/20 15:11 Temperature Source Skin 12/02/20 15:11 Pulse 101 H 12/02/20 15:11 Respiratory Rate 18 12/02/20 15:11 Respiratory Effort Non-Labored 12/02/20 15:15 Blood Pressure 124/76 12/02/20 15:11 Blood Pressure Position Sitting 12/02/20 15:11 Pulse Oximetry 97 12/02/20 15:11 Oxygen Delivery Method Room Air 12/02/20 15:11 Oxygen Flow Rate 0 12/02/20 15:11 Pain Level 10 12/02/20 15:11
[2020-12-02] MEDS: predniSONE 20 MG TAB 60 MG PO (15:33)
[2020-12-02] MEDS: Methocarbamol 500 MG TAB 1000 MG PO (15:53)
--- NOTE | 2020-12-04 09:24 | PDOC.ANES ---
Date of service: 12/04/20 Time of Service: 09:24 Anesthesia Note Report Anesthesia Note: Asked to review Broderick's chart for shoulder surgery. Given his severe obstructive disease with moderate air trapping and mild diffusions capacity reduction as well as his recent admission in August requiring a chest tube for a pneumothorax, I would recommend for he have his shoulder surgery anesthesia, which will require a nerve block, at a tertiary care hospital given high risk of serious pulmonary complications. If he requires other procedures in the future, this recommendation may change depending on what he requires.
== END 2020-12-02 15:56 | disposition home or self-care (01) ==
PROVIDERS: Emergency Provider Physician Assistant; PCP Nurse Practitioner Family
DX: M25.511 Pain in right shoulder (principal); G89.29 Other chronic pain; S16.1XXA Strain of muscle, fascia and tendon at neck level, initial encounter; X58.XXXA Exposure to other specified factors, initial encounter
CPT/HCPCS: 99283; J7512

== ENCOUNTER 2021-02-07 23:46 | Emergency (ER) | payer MEDICAID, SELFPAY ==
[2021-02-07 23:50] VITALS: BP 129/85; PULSE 98; RESP 18; TEMP 36.7; O2SAT 99
--- NOTE | 2021-02-07 23:50 | W.ED.GENAD ---
Discharge Plan Disposition Patient Disposition: HOME Condition: Good Discharge Details Clinical Impression: Bilateral shoulder pain Primary Care Provider: Lionel Ruggiero ED Provider: Miguelangel Walker Meds and New Rx's Prescriptions: Continued cetirizine 10 mg Tablet 10 mg PO DAILY RF: 0 montelukast 10 mg Tablet 10 mg PO DAILY RF: 0 fluticasone propionate [Flonase Allergy Relief] 50 mcg/actuation [place],Suspension 1 spray INTRANASAL BID RF: 0 sertraline 50 mg Tablet 50 mg PO DAILY RF: 0 Dulera 200-5 mcg/actuation Hfa Aerosol Inhaler 2 puff INHALATION BID RF: 0 albuterol sulfate 90 mcg/actuation aerosol powdr breath activated 2 inh IH Q4H PRN (Reason: shortness of breath or wheezing) Qty: 1 RF: 0 albuterol sulfate 2.5 mg /3 mL (0.083 %) solution for nebulization 2.5 mg IH Q4H PRN (Reason: shortness of breath or wheezing) Qty: 75 RF: 0 methocarbamol 500 mg tablet 500 mg PO Q6H PRN (Reason: muscle spasm) Qty: 14 RF: 0 Discharge Instructions Additional Instructions: Lyme testing has been drawn and pending. Continue acetaminophen and Naprosyn for pain. Make follow-up appointment with your primary care. Return to ED for fever, inability to use arms/range shoulder. Referrals: [facility] [Provider Group] Medical Decision Making Patient has known chronic rotator cuff injury and tendinitis in the right. Has now had symptoms on the left for 3 weeks. He is convinced that it is Lyme disease but has no other joint involvement, fever, headache, rash. He has not seen primary care or even made an appointment. He is requesting Lyme testing and will then follow-up with primary care next week. I see no indication for imaging. See no indication for treatment for Lyme. We will draw a Lyme/tick panel and discharged the patient to follow-up with primary care. HPI General Mode of arrival: ambulatory. Date/Time Provider Initiated Documentation: 02/07/21 23:50. Limitations to Documentation: no limitations. Information obtained by: patient, RN notes reviewed and old records reviewed. HPI Narrative: Patient presents to ED with complaint of left shoulder pain. This has been bothering him now for almost 3 weeks. He has chronic right shoulder pain. He denies any injury. He thinks he was bit by a tick about the same time and is concerned that he has Lyme disease. He denies fever, headache, other joint involvement, rash although he recalls having a wound type rash on his knee. He has not contacted his primary care. He does not have appointment to see primary care. He came in tonight because his shoulder is worse and he wants a Lyme test. Related Data Home Medications Medication Instructions Recorded Confirmed albuterol sulfate 2 inh IH Q4H PRN #1 each 09/24/18 02/08/21 Dulera 2 puff INHALATION BID 05/02/19 02/08/21 cetirizine 10 mg PO DAILY 05/02/19 02/08/21 fluticasone propionate [Flonase 1 spray INTRANASAL BID 05/02/19 02/08/21 Allergy Relief] montelukast 10 mg PO DAILY 05/02/19 02/08/21 sertraline 50 mg PO DAILY 05/02/19 02/08/21 albuterol sulfate 2.5 mg IH Q4H PRN #75 ml 06/03/19 02/08/21 methocarbamol 500 mg PO Q6H PRN #14 tab 12/02/20 02/08/21 Previous Rx's Medication Instructions Recorded albuterol sulfate 2 inh IH Q4H PRN #1 each 09/24/18 albuterol sulfate 2.5 mg IH Q4H PRN #75 ml 06/03/19 methocarbamol 500 mg PO Q6H PRN #14 tab 12/02/20 Allergies Allergy/AdvReac Type Severity Reaction Status Date / Time No Known Allergies Allergy Unverified 12/02/20 15:13 General WANDA: 4 Review of Systems Constitutional Constitutional: Denies fever(s), Denies headache(s) and Denies weakness ENT Ears, Nose, Mouth, and Throat: Denies dizziness and Denies headache(s) Musculoskeletal Musculoskeletal: Reports arthralgias and Denies numbness Integumentary/Breasts Skin/Breast: Denies erythema and Denies wounds Neurologic Neurologic: Denies dizziness, Denies headache(s), Denies numbness and Denies weakness [facility] Medical History COPD (chronic obstructive pulmonary disease) Depression Pneumothorax, right Surgical History History of fundoplication S/P arthroscopic knee surgery Social History Smoking/Tobacco Use Status: Current every day Tobacco Type: cigarettes Smoking risk assessment performed?: Yes Alcohol Intake: current Alcohol Intake frequency: 3 or more drinks per day Alcohol type: hard liquor Drug use: Current Sobriety Substance use type: marijuana Details: pt currently intoxicated Current gender identity: male Do you feel safe at home: Yes Do you feel safe in your relationship?: Yes Exam Narrative Exam Narrative: Const: WDWN male in NAD. HEENT: NC/AT. Normal facial exam. Eyes: Normal conjunctiva and sclera. Neck: Supple. Trachea midline. Lungs: Normal respiratory effort. Neuro: A+O x 3. Normal speech, mentation, gait. Cranial nerves II - XII grossly intact. No gross motor or sensory deficit. Ext: No C/C/E. Limited range of motion in both shoulders with inability to raise hands above his head. No warmth or erythema associated with either joint. No swelling noted. No other joint involvement. Other joints with normal range of motion. Skin: Warm and dry without rash, erythema, warmth.
[2021-02-11 10:53] LABS: Lyme Ab w Rflx to Lyme Confirm Negative (Negative)
[2021-02-12 02:53] LABS: Anaplasma phagocytophilum Negative (Negative); B. miyamotoi PCR Negative (Negative); Babesia divergens/MO-1 Negative (Negative); Babesia duncani Negative (Negative); Ehrlichia chaffeensis Negative (Negative); Ehrlichia ewingii/canis Negative (Negative); Ehrlichia muris eauclairensis Negative (Negative)
[2021-02-12 05:46] LABS: Babesia microti Positive (Negative)
== END 2021-02-08 00:19 | disposition home or self-care (01) ==
LOC: ER 02-08 00:21
PROVIDERS: Emergency Provider Emergency Medicine; PCP Nurse Practitioner Family
DX: M25.512 Pain in left shoulder (principal); M25.511 Pain in right shoulder
CPT/HCPCS: 36415; 87798; 99283; 86618

== ENCOUNTER 2021-04-02 02:30 | Outpatient (CLI) | payer MEDICAID, SELFPAY ==
--- NOTE | 2021-04-02 10:26 | DI.US_ITS ---
APPROVED REPORT EXAM: Comprehensive 2D, Doppler, and color-flow Echocardiogram Patient Location: Out-Patient Business Dean: Veronica Moreno RDCS (AE) Indications: SOB, Family h/o bicuspid aortic valve Other Information Study Quality: Adequate Conclusion Left Ventricle : The left ventricle is normal size. The left ventricular systolic function is normal. The left ventricular ejection fraction is within the normal range. There is normal left ventricular wall thickness. There is normal LV segmental wall motion. LVEF is 59%. Right Ventricle : The right ventricle is normal size. The right ventricular systolic function is norm al. Atria : The left atrium size is normal. The right atrium size is normal. Aortic Valve : The aortic valve is normal in structure. Aortic valve is trileaflet. No aortic regurgi tation is present. There is no aortic valvular stenosis. Great Vessels : The ascending aorta is normal in size. The aortic root is normal in size. IVC is norm al in size and collapses >50% with inspiration. See remainder of study for further details. Wall motion Left Ventricle The left ventricle is normal size. The left ventricular systolic function is normal. The left ventric ular ejection fraction is within the normal range. There is normal left ventricular wall thickness. T here is normal LV segmental wall motion. There is no ventricular septal defect visualized. LVEF is 59 %. Right Ventricle The right ventricle is normal size. The right ventricular systolic function is normal. Atria The left atrium size is normal. The right atrium size is normal. The interatrial septum is intact wit h no evidence for an atrial septal defect. Aortic Valve The aortic valve is normal in structure. Aortic valve is trileaflet. There is no aortic valvular sten osis. No aortic regurgitation is present. Mitral Valve The mitral valve is normal in structure. No evidence of mitral valve stenosis. Trace mitral regurgita tion. Tricuspid Valve The tricuspid valve is normal in structure. There is no tricuspid valve stenosis. Trace tricuspid reg urgitation. Unable to assess PA pressure. Pulmonic Valve The pulmonary valve is normal in structure. There is no pulmonic valvular stenosis. There is no pulmo myron valvular regurgitation. Great Vessels The aortic root is normal in size. The ascending aorta is normal in size. IVC is normal in size and c ollapses >50% with inspiration. Pericardium There is no pericardial effusion. 2D Dimensions IVSD d PLAX 1.02 cm M: 0.6-1.2 LV Vol A2C d MOD 128.0 mL LVPW d PLAX 1.00 cm M: 0.6 - 1.2 LV Vol A4C d MOD 110.9 mL LVID d PLAX 4.92 cm M: 4.2 - 5.8 LA vol/ BSA A2C s A-L 33.4 mL/m2 LVDs 3.25 cm M: 2.5 - 4.0 LA vol/ BSA A4C s A-L 20.4 mL/m2 Ao Root d 3.22 cm M: 3.1 - 3.7 LA Vol/ BSA Biplane s A-L 27.3 mL/m2 RA Area A4C 11.88 cm2 LA Area A4C s MOD 16.09 cm2 RA Vol/ BSA A4C s A-L 14.5 mL/m2 LA Area A2C s MOD 19.67 cm2 Ao Asc Diam d 3.43 cm M: 2.6 - 3.4 LV EF A4C MOD 60.7 % LV EF Teichholz 61.7 % LV EF A2C MOD 58.6 % LVEF (Garcia's) 59.27 % M: 52 - 72 LV EF Biplane MOD 59.3 % LV Volume 91.27 mL M: 62 - 150 SV 71.04 mL LV Volume Index 47.78 mL/m2 M: 34 - 74 SV Index 37.14 mL/m2 LV Vol Biplane MOD 119.9 mL FS 33.20 % M-Mode TAPSE 2.59 cm (M/F) >1.7 Aortic Valve LVOT Area 3.51 cm2 AoV Area Vmax 3.13 cm2 LVOT Vmax 1.15 m/s AoV Area/ BSA (Vmax) 1.64 cm2/m2 LVOT Mean Jonah. 0.89 m/s JV Mean Jonah. 2.94 cm2 LVOT Peak Grad 5.3 mmHg JV Mean Jonah. Index 1.54 cm2/m2 LVOT Mean Grad 3.4 mmHg LVOT VTI 0.203 m LVOT Diam s 2.10 cm AoV Vmax 1.30 m/s Velocity Ratio 0.88 AoV Mean Jonah. 1.06 m/s AoV Peak Grad 6.7 mmHg LVOT SV 71.26 mL AoV Mean Grad 4.8 mmHg AoV VTI 0.238 m AoV Area VTI 3.00 cm2 AoV Area/ BSA (VTI) 1.57 cm/m2 Pulmonary Valve PV Vmax 1.26 (0.5-1.5 m/s) RVOT Peak Gr. 3.00 mmHg PV Peak Grad 6.3 mmHg RVOT Mean Gr. 2.00 mmHg PV Mean Grad 3.2 mmHg RVOT VTI 0.155 m PV VTI 0.219 m RVOT Vmax 0.87 m/s
== END 2021-04-02 02:50 ==
PROVIDERS: PCP Nurse Practitioner Family; Visit Provider Nurse Practitioner
DX: Q23.1 Congenital insufficiency of aortic valve (principal); R06.02 Shortness of breath
CPT/HCPCS: 93306

== ENCOUNTER 2021-05-25 05:32 | Emergency (ER) | payer MEDICAID, SELFPAY ==
[2021-05-25 05:35] VITALS: BP 126/79; PULSE 118; RESP 24; TEMP 36; O2SAT 97
--- NOTE | 2021-05-25 05:35 | W.ED.GENAD ---
Discharge Plan Disposition Patient Disposition: HOME Condition: Stable Discharge Details Clinical Impression: Chronic pain in right shoulder Primary Care Provider: Lionel Ruggiero ED Provider: Miguelangel Walker [place] Meds and New Rx's Prescriptions: New methocarbamol 500 mg tablet 1,000 mg PO TID Qty: 20 RF: 0 lidocaine 5 % adhesive patch,medicated 1 patch topical DAILY Qty: 3 RF: 0 Continued cetirizine 10 mg Tablet 10 mg PO DAILY RF: 0 montelukast 10 mg Tablet 10 mg PO DAILY RF: 0 fluticasone propionate [Flonase Allergy Relief] 50 mcg/actuation [place],Suspension 1 spray INTRANASAL BID RF: 0 sertraline 50 mg Tablet 50 mg PO DAILY RF: 0 Dulera 200-5 mcg/actuation Hfa Aerosol Inhaler 2 puff INHALATION BID RF: 0 trazodone 50 mg tablet 50 mg PO HS RF: 0 albuterol sulfate 90 mcg/actuation aerosol powdr breath activated 2 inh IH Q4H PRN (Reason: shortness of breath or wheezing) Qty: 1 RF: 0 albuterol sulfate 2.5 mg /3 mL (0.083 %) solution for nebulization 2.5 mg IH Q4H PRN (Reason: shortness of breath or wheezing) Qty: 75 RF: 0 Discharge Instructions Additional Instructions: Continue Tylenol 1 g alternating with Motrin 600 mg every 4 hours. Use Robaxin and lidocaine patches over the weekend to help with pain. Contact primary care on Thursday for further management. You may need referral to pain clinic for further management of chronic pain. Return to ED for any new injury, neurologic change, chest pain, shortness of breath. Medical Decision Making Patient presenting with right shoulder pain which is chronic in nature and evaluated by orthopedics here and at [facility]. Reports being seen by primary care 2 weeks ago. Has used Tylenol and Motrin. Pain has been bothering him for months. Denies any new injury. States that he is just tired of having pain all the time and wants something for it. Patient informed that no narcotic will be given or prescribed from the emergency department for chronic pain. I did offer muscle relaxant and lidocaine patch in addition to the Tylenol and Motrin he has been using. He was upset and just wants a shot of something. Again I declined to provide any type of narcotic, especially since he just saw primary care and was not prescribed same. Did not give him Toradol as he just took Motrin. He eventually agreed to the lidocaine patch and Robaxin. I will provide prescription for same over the weekend. Will need to contact primary care on Thursday for further management. If this is truly nonoperable, likely would benefit from referral to pain clinic. Medical Records Medical records reviewed: Yes I reviewed the patient's medical records. HPI General Mode of arrival: ambulatory. Date/Time Provider Initiated Documentation: 05/25/21 05:34. Limitations to Documentation: no limitations. Information obtained by: patient, RN notes reviewed and old records reviewed. HPI Narrative: Patient presents to ED with right shoulder pain. Patient has had right shoulder problems for months now. He has been seen by orthopedics here and at [facility]. He reports that they have declined any type of surgery due to his severe COPD. He does have primary care who he reports saw him 2 weeks ago. Patient presents to ED tonight stating he continues to have pain in keeping him up. He denies any new injury. He denies any chest pain or shortness of breath. Pain goes from the right side of the neck across the shoulder down into the upper arm. He has taken acetaminophen and ibuprofen. Denies any numbness or weakness. He is still able to range his shoulder but complains of pain and tenderness and inability to sleep. Related Data Home Medications Medication Instructions Recorded Confirmed albuterol sulfate 2 inh IH Q4H PRN #1 each 09/24/18 05/25/21 Dulera 2 puff INHALATION BID 05/02/19 05/25/21 cetirizine 10 mg PO DAILY 05/02/19 05/25/21 fluticasone propionate [Flonase 1 spray INTRANASAL BID 05/02/19 05/25/21 Allergy Relief] montelukast 10 mg PO DAILY 05/02/19 05/25/21 sertraline 50 mg PO DAILY 05/02/19 05/25/21 albuterol sulfate 2.5 mg IH Q4H PRN #75 ml 06/03/19 05/25/21 lidocaine 1 patch TOPICAL DAILY #3 ea 05/25/21 methocarbamol 1,000 mg PO TID #20 tab 05/25/21 trazodone 50 mg PO HS 10/09/21 10/09/21 Previous Rx's Medication Instructions Recorded albuterol sulfate 2 inh IH Q4H PRN #1 each 09/24/18 albuterol sulfate 2.5 mg IH Q4H PRN #75 ml 06/03/19 lidocaine 1 patch TOPICAL DAILY #3 ea 05/25/21 methocarbamol 1,000 mg PO TID #20 tab 05/25/21 Allergies Allergy/AdvReac Type Severity Reaction Status Date / Time No Known Allergies Allergy Unverified 05/25/21 05:43 General WANDA: 4 Review of Systems Narrative: As documented in HPI otherwise negative as below. Const: no fever, chills, weakness Resp: no cough, SOB, pleuritic pain CV: no CP, diaphoresis, edema, syncope GI: no abdominal pain, nausea, vomiting, diarrhea Neuro: no headache, numbness, focal weakness, confusion PFSH Medical History COPD (chronic obstructive pulmonary disease) Depression Pneumothorax, right Surgical History History of fundoplication S/P arthroscopic knee surgery Social History Smoking/Tobacco Use Status: Current every day Tobacco Type: cigarettes Smoking risk assessment performed?: Yes Alcohol Intake: current Alcohol Intake frequency: 3 or more drinks per day Alcohol type: hard liquor Drug use: Current Sobriety Substance use type: marijuana Details: pt currently intoxicated. States he only drinks a couple days a week. Patient currently smells of ETOH and speach is very slurred/difficult to understand. Current gender identity: male Do you feel safe at home: Yes Do you feel safe in your relationship?: Yes Exam Narrative Exam Narrative: Const: WDWN male in NAD. HEENT: NC/AT. Normal facial exam. Neck: Supple with normal ROM. Trachea midline. No midline c-spine tenderness. Lungs: Normal respiratory effort. Cor: RRR. Good radial pulses. Neuro: A+O x 3. Normal speech. Cranial nerves II - XII grossly intact. No gross motor or sensory deficit. Ext: Tender to palpation along right trapezial neck muscle into the right shoulder and right proximal arm. Actually has fairly decent range of motion no with pain. Good strength distally. Sensation intact distally. Strong radial pulse. Skin: Warm and dry without rash.
[2021-05-25] MEDS: Lidocaine 5% Patch 1 PATCH TP (05:59)
[2021-05-25] MEDS: Methocarbamol 500 MG TAB 1000 MG PO (06:00)
== END 2021-05-25 06:13 | disposition home or self-care (01) ==
LOC: ER 05:57
PROVIDERS: Emergency Provider Emergency Medicine; PCP Nurse Practitioner Family
DX: M25.511 Pain in right shoulder (principal); G89.29 Other chronic pain
CPT/HCPCS: 99283

== ENCOUNTER 2021-11-05 13:20 | Emergency (ER) | payer MEDICAID, SELFPAY ==
[2021-11-05] VITALS (12 sets, daily range): BP systolic 107–144; BP diastolic 59–100; PULSE 100–117; RESP 14–22; TEMP 36.5; O2SAT 94–99
--- NOTE | 2021-11-05 13:15 | RT.EKG_ITS ---
APPROVED REPORT Exam: Resting ECG Reason for Exam: SOB Patient Location: E HR:113 bpm ECG Measurements Heart Rate 113 AXIS NJ 181 P 68 QRSd 101 QRS 49 QT 347 T 26 QTc 476 Conclusion Sinus tachycardia...rate> 99 Probable left atrial enlargement...P >50mS, <-0.10mV V1 sinus tachycardia, normal axis, non ischemic
--- NOTE | 2021-11-05 13:30 | DI.RAD_ITS ---
Exam(s) XR PORTABLE CHEST AP EXAM: XR PORTABLE CHEST AP CLINICAL HISTORY: copd, cough productive of brown sputum TECHNIQUE: 2D digital imaging was performed. COMPARISON: CR,XR XR PORTABLE CHEST AP from 11/04/2020 FINDINGS: LUNGS: Clear. No pleural abnormality seen. HEART: Normal. MEDIASTINUM: Normal. BONES: Unremarkable. IMPRESSION: No acute pulmonary findings. DATA REPOSITORY: RADIATION DOSE DELIVERED:
[2021-11-05] MEDS: Dexamethasone 10 MG/ML VIAL IVP (13:54)
--- NOTE | 2021-11-05 14:07 | ED.GENADUL_ITS ---
Discharge Plan Disposition Patient Disposition: HOME Condition: Improving Discharge Details Clinical Impression: COPD (chronic obstructive pulmonary disease) Primary Care Provider: Lionel Ruggiero ED Provider: Minog Perkins Home Meds and New Rx's Prescriptions: New albuterol sulfate 1.25 mg/3 mL solution for nebulization 1.25 mg inhalation Q4H PRN (Reason: shortness of breath or wheezing) Qty: 75 0RF azithromycin 250 mg tablet 250 mg PO DAILY 4 Days Qty: 4 0RF Rx Instructions: start on 11/06/21 No Action cetirizine 10 mg Tablet 10 mg PO DAILY 0RF montelukast 10 mg Tablet 10 mg PO DAILY 0RF fluticasone propionate [Flonase Allergy Relief] 50 mcg/actuation [place],Suspension 1 spray INTRANASAL BID 0RF sertraline 50 mg Tablet 50 mg PO DAILY 0RF Dulera 200-5 mcg/actuation Hfa Aerosol Inhaler 2 puff INHALATION BID 0RF trazodone 50 mg tablet 50 mg PO HS 0RF Label Comments: TAKE ONE TABLET BY MOUTH NIGHTLY methocarbamol 500 mg tablet 1,000 mg PO TID Qty: 20 0RF lidocaine 5 % adhesive patch,medicated 1 patch topical DAILY Qty: 3 0RF Rx Instructions: leave on most painful area for up to 12 hrs albuterol sulfate 90 mcg/actuation aerosol powdr breath activated 2 inh IH Q4H PRN (Reason: shortness of breath or wheezing) Qty: 1 0RF albuterol sulfate 2.5 mg /3 mL (0.083 %) solution for nebulization 2.5 mg IH Q4H PRN (Reason: shortness of breath or wheezing) Qty: 75 0RF Discharge Instructions Instructions: COPD (Chronic Obstructive Pulmonary Disease) (ED) Additional Instructions: Please be seen by your primary care physician. Return to the emergency department for any worsening symptoms specifically worsening shortness of breath cough fevers chills. Take antibiotics and nebs as directed. Medical Decision Making 51-year-old male history of COPD presents with worsening shortness of breath productive cough for the past several days. Does endorse some orthopnea. Denies cardiac history. No peripheral edema. Bilateral wheezing expiratory nature. Speaking full sentences no hypoxia. Likely COPD exacerbation versus pneumonia versus less likely pleural effusion less likely PE less likely ACS less likely pneumothorax. Screening labs chest x-ray nebs steroids close reassessment. Still with some persistent expiratory wheeze however improved from before patient feels symptomatically better, wishes to go home has nebs at home, will dose with azithromycin given COPD exacerbation. HPI General Date/Time Provider Initiated Documentation: 11/05/21 13:32 . HPI Narrative: 51-year-old male history of COPD presents with worsening shortness of breath productive cough over the past several days, using nebs at home without relief, does endorse some shortness of breath worse when lying flat, denies cardiac history Related Data Home Medications Medication Instructions Recorded Confirmed albuterol sulfate 90 mcg/actuation 2 inh IH Q4H PRN #1 each 09/24/18 11/05/21 breath activated powder inhaler cetirizine 10 mg tablet 10 mg PO DAILY 05/02/19 11/05/21 fluticasone propionate 50 1 spray INTRANASAL BID 05/02/19 11/05/21 mcg/actuation nasal spray,suspension (Flonase Allergy Relief) mometasone-formoterol HFA 200 2 puff INHALATION BID 05/02/19 11/05/21 mcg-5 mcg/actuation aerosol inhaler (Dulera) montelukast 10 mg tablet 10 mg PO DAILY 05/02/19 11/05/21 sertraline 50 mg tablet 50 mg PO DAILY 05/02/19 11/05/21 albuterol sulfate 2.5 mg (3 mL) IH Q4H PRN #75 ml 06/03/19 11/05/21 lidocaine 5 % topical patch 1 patch TOPICAL DAILY #3 ea 05/25/21 11/05/21 methocarbamol 500 mg tablet 1,000 mg PO TID #20 tab 05/25/21 11/05/21 trazodone 50 mg tablet 50 mg PO HS 05/25/21 11/05/21 albuterol sulfate 1.25 mg/3 mL 1.25 mg (3 mL) INHALATION Q4H PRN 11/05/21 solution for nebulization #75 ml azithromycin 250 mg tablet 250 mg PO DAILY 4 Days #4 tab 11/05/21 Previous Rx's Medication Instructions Recorded albuterol sulfate 90 mcg/actuation 2 inh IH Q4H PRN #1 each 09/24/18 breath activated powder inhaler albuterol sulfate 2.5 mg (3 mL) IH Q4H PRN #75 ml 06/03/19 lidocaine 5 % topical patch 1 patch TOPICAL DAILY #3 ea 05/25/21 methocarbamol 500 mg tablet 1,000 mg PO TID #20 tab 05/25/21 albuterol sulfate 1.25 mg/3 mL 1.25 mg (3 mL) INHALATION Q4H PRN 11/05/21 solution for nebulization #75 ml azithromycin 250 mg tablet 250 mg PO DAILY 4 Days #4 tab 11/05/21 Allergies Allergy/AdvReac Type Severity Reaction Status Date / Time No Known Allergies Allergy Unverified 11/05/21 13:28 General Stated Complaint: SOB WANDA: 3 Review of Systems Narrative: Review of Systems Constitutional: negative Eyes: negative ENT: negative Cardiovascular: negative Respiratory: Shortness of breath Gastrointestinal: negative : negative Musculoskeletal: negative Skin: negative Neurologic: negative Psych: negative PFSH All Active Problems (Updated 11/05/21 @ 15:03 by Mingo Perkins MD) Chronic pain in right shoulder (Acute) Cervical muscle strain (Acute) Bilateral shoulder pain (Acute) Tendonitis of long head of biceps brachii of right shoulder (Acute) Calcific tendinitis of right shoulder (Acute) Meralgia paresthetica of left side (Acute) Alcohol abuse with uncomplicated intoxication (Acute) Episode of unresponsiveness (Acute) Impingement syndrome of right shoulder (Acute) Bursitis of shoulder, right (Acute) Pneumothorax, right (Acute) COPD (chronic obstructive pulmonary disease) (Chronic) Medical History COPD (chronic obstructive pulmonary disease) Depression Pneumothorax, right Surgical History History of fundoplication S/P arthroscopic knee surgery Social History Smoking/Tobacco Use Status: Current every day Tobacco Type: cigarettes Smoking risk assessment performed?: Yes Alcohol Intake: current Alcohol Intake frequency: 3 or more drinks per day Alcohol type: hard liquor Drug use: Current Sobriety Substance use type: marijuana Details: pt currently intoxicated. States he only drinks a couple days a week. Patient currently smells of ETOH and speach is very slurred/difficult to understand. Current gender identity: male Do you feel safe at home: Yes Do you feel safe in your relationship?: Yes Exam Narrative Exam Narrative: Physical Examination General: alert, awake, cooperative, resting comfortably, no acute distress HEENT: normocephalic, atraumatic; PERRL, EOM intact, conjunctiva normal; no nasal discharge; moist mucous membranes, oral and pharyngeal mucosa normal, tolerating secretions Neck: supple, trachea midline; full ROM Chest: normal to inspection Respiratory: normal respiratory effort, speaking in full sentences, bilateral expiratory wheezes Cardiac: Tachycardia, regular rhythm, S1S2 intact, no murmurs rubs or gallops GI: abdomen soft, non-tender, non-distended; no palpable mass or hepatosplenomegaly Skin: no lesions, rashes or trauma appreciated Neuro: AAOx3, normal speech, moving all extremities Extremities: No peripheral edema Psych: Appropriate mood and affect Course Vital Signs Vital signs: Vital Signs Pulse 117 H 11/05/21 13:26 Respiratory Rate 22 11/05/21 13:26 Blood Pressure 144/89 H 11/05/21 13:26 Pulse Oximetry 97 11/05/21 13:26 Pulse 117 H 11/05/21 13:26 Respiratory Rate 22 11/05/21 13:26 Blood Pressure 144/89 H 11/05/21 13:26 Blood Pressure Position Sitting 11/05/21 13:26 Pulse Oximetry 97 11/05/21 13:26 Oxygen Delivery Method Room Air 11/05/21 13:26 Oxygen Flow Rate 0 11/05/21 13:26 Pain Level 10 11/05/21 13:26 Comment 11/05/21 13:26
[2021-11-05] MEDS: Levalbuterol 1.25 MG/3 ML UPD VIAL UPD (14:29)
[2021-11-05 14:33] LABS: Abs Immature Grans 0.09 10^3/uL (0.0-0.06); Absolute Eosinophil Count 0.11 10^3/uL (0.0-0.7); Absolute Lymphocyte Count 2.83 10^3/uL (1.2-3.4); Absolute Monocyte Count 1.17 10^3/uL (0.1-0.8); Basophils % 0.7; Eosinophils % 0.8; HCT 44.1 % (40.0-50.0); HGB 14.9 g/dL (13.5-17.5); Immature Grans % 0.6; Lymphocytes % 20.1; MCH 32.5 pg (27.0-33.0); MCHC 33.8 % (32.0-36.0); MCV 96.3 fL (80-95); MPV 10.1 fL (8.0-11.0); Monocytes % 8.3; Neutrophils % 69.5; Nucleated RBC 0 %; Platelet Count 369 10^3/uL (130-400); RBC 4.58 10^6/uL (4.36-5.78); RDW 14.9 % (11.8-14.1); RDW-SD 52.7 fL; WBC 14.07 10^3/uL (4.4-10.8)
[2021-11-05] MEDS: Ipratropium 0.5 MG/2.5 ML UPD VIAL UPD (14:34)
[2021-11-05 14:37] LABS: Absolute Neutrophil Count 9.78 10^3/uL (1.2-6.7)
[2021-11-05 14:55] LABS: ALT 51 U/L (16-63); AST 38 U/L (15-37); Albumin 3.8 g/dL (3.4-5.0); Alkaline Phosphatase 56 U/L (46-116); Anion Gap 9.6 mmol/L (3-11); BUN 12 mg/dL (7-18); Bilirubin, Total 0.2 mg/dL (0.2-1.0); CO2 26.4 mmol/L (21.0-32.0); CREATININE 0.8 mg/dL (0.70-1.30); Calcium 8.5 mg/dL (8.5-10.1); Chloride 102 mmol/L (98-107); Glucose 96 mg/dL (74-106); NT-proBNP 19 pg/mL (<300); Potassium 3.8 mmol/L (3.5-5.1); Sodium 138 mmol/L (136-145); Troponin I < 50 ng/L (<or=60)
[2021-11-05] MEDS: Azithromycin 250 MG TAB 500 MG PO (15:28)
[2021-11-06 13:52] LABS: COVID-19 RT-PCR UVMMC Result Negative (Negative)
== END 2021-11-05 15:34 | disposition home or self-care (01) ==
PROVIDERS: Emergency Provider Emergency Medicine; PCP Nurse Practitioner Family
DX: J44.9 Chronic obstructive pulmonary disease, unspecified (principal); R06.02 Shortness of breath; Z86.16 Personal history of COVID-19; Z20.822 Contact with and (suspected) exposure to COVID-19; R05.1 Acute cough
CPT/HCPCS: 36415; 80053; 93005; 94640; 96374; 99284; U0003; 71045; 83880; 84484; 85025; 93010; J1100; J7614; J7644